=== PATIENT | male | born 1985 | race African-American/Black ===

== ENCOUNTER 2017-03-20 01:50 | Inpatient (IN) | payer BC, MEDICAID ==
[2017-03-20] VITALS (9 sets, daily range): BP systolic 110–135; BP diastolic 65–88; PULSE 85–130; RESP 18–22; TEMP 97–99.9; O2SAT 89–100
[~2017-03-20] VITALS: Ht 175.3 cm; Wt 61.6 kg
[2017-03-20] MEDS: SODIUM CHLOR 0.9% 1000 ML INJ 1,000 ML IV SCH ×2 (01:00→04:23)
[~2017-03-20 01:50] MED LIST: DOCU1CAP39 PO; HYDR500C PO; NALOXONE HCL 0.4 MG/ML AMP IV PUSH PRN; PERC7.5T13 PO; PROC10TA PO; SODIUM CHLORIDE 0.9% FLUSH 10 ML FLUSH IV FLUSH PRN
[2017-03-20] MEDS: HYDROmorphone HCL PF 0.5 MG/0.5 ML SYRINGE IV PRN ×2 (02:26→06:00)
[2017-03-20] MEDS ORDERED: HYDROmorphone HCL PF 0.5 MG/0.5 ML SYRINGE IV ONE ×2 (03:00→04:15)
[2017-03-20 06:46] LABS: BLOOD, URINE MOD (NEG); GLUCOSE,URINE NEG (NEG); KETONE, URINE NEG (NEG); NITRITE,URINE NEG (NEG)
[2017-03-20 06:56] LABS: COMMENT (UR) CULT NOT INDICATED; CULTURE IF INDICATED CULT NOT INDICATED; METHOD OF COLLECTION CLEAN CATCH; SQUAMOUS EPITHELIAL CELL URINE 0-5 /hpf (0-5); URINE COLOR YELLOW (YELLW/STRAW)
[2017-03-20 07:01] LABS: BICARBONATE 22.8 MEQ/L (21.0-32.0); POTASSIUM 3.4 MEQ/L (3.5-5.1)
[2017-03-20 07:02] LABS: WHITE BLOOD COUNT 26.5 TH/MM3 (4.0-11.0)
[2017-03-20 07:03] LABS: HEMO FLAGS AUTO DIFF; MEAN CELL VOLUME 99.1 FL (80.0-100.0); MEAN CORPUSCULAR HEMOGLOBIN 34.5 PG (27.0-34.0); MEAN CORPUSCULAR HGB CONC 34.8 % (32.0-36.0); PLATELET COUNT 148 TH/MM3 (150-450); RED BLOOD COUNT 1.96 MIL/MM3 (4.50-5.90); RED CELL DISTRIBUTION WIDTH 22.8 % (11.6-17.2)
[2017-03-20 07:04] LABS: HEMATOCRIT 19.4 % (39.0-51.0)
[2017-03-20] MEDS ORDERED: SODIUM CHLOR 0.9% 250 ML INJ 250 ML IV ONE (07:30)
[2017-03-20] MEDS ORDERED: ACETAMINOPHEN 325 MG TAB PO PRN ×2 (07:30→09:15)
[2017-03-20] MEDS ORDERED: FUROSEMIDE 20 MG/2 ML VIAL IV PUSH ONE (07:30)
[2017-03-20] MEDS ORDERED: HYDROmorphone HCL PF 1 MG/ML VIAL IV PUSH ONE (08:45)
[2017-03-20 09:00] LABS: BANDS 3 % (0-6); CORRECTED NUCLEATED RBC 34 /100 WBC (0-0); CORRECTED WBC 19.8 TH/MM3 (4.0-11.0); METAMYELOCYTES 1 % (0-1); NEUTROPHIL # MANUAL DIFF 16.6 TH/MM3 (1.8-7.7); POLYS (SEG NEUTROPHILS) 80 % (16-70); WBC DIFF SAMPLE 100
[2017-03-20] MEDS: DOCUSATE SODIUM 100 MG CAP PO SCH ×2 (09:00→21:00)
[2017-03-20] MEDS ORDERED: oxyCODONE/ACETAMINOPHEN 5 MG/325 MG TAB PO PRN (09:00)
[2017-03-20] MEDS ORDERED: ONDANSETRON HCL 4 MG/2 ML VIAL IV PUSH PRN (09:00)
[2017-03-20] MEDS ORDERED: HYDROmorphone HCL PF 1 MG/ML VIAL IV PRN (09:00)
[2017-03-20] MEDS: SODIUM CHLORIDE 0.9% FLUSH 10 ML FLUSH IV FLUSH SCH ×2 (09:00→21:00)
[2017-03-20 09:01] LABS: HOWELL-JOLLY BODIES PRESENT (NONE SEEN); KERATOCYTES OCC (NORMAL); OVALOCYTES 2+ (NORMAL); STOMATOCYTES 1+ (NORMAL); TARGET CELLS 1+ (NORMAL)
--- NOTE | 2017-03-20 09:01 | HHI.HP ---
HPI Service [facility] ([place], [place])ists Primary Care Physician No Primary Care Physician Admission Diagnosis Diagnoses: (1) Sickle cell anemia Diagnosis: Principal Chief Complaint: Pain Travel History International Travel<30 Days: No Contact w/Intl Traveler <30 Da: No History of Present Illness The patient is a 31-year-old male with a past medical history of sickle cell disease who is presenting to the hospital with severe pain. He says his last sickle cell crisis was on and he went to the emergency department in [place] at that time. He said his lower abdomen, groin and hips are hurting him. He also endorses flank pain. He says the pain is severe in nature and does not go away. He said that he has been nauseous but has not been vomiting. He denies any diarrhea. He says he has not been eating well. He has been trying to drink fluids. He did endorse a fever today but was unsure of how high it went. He said he believes he will need up to 4 mg of IV Dilaudid at this point. He denies any chest pain or shortness of breath. Review of Systems ROS Limitations: Clinical Condition Except as stated in HPI: all other systems reviewed are Neg Past Family Social History Past Medical History Sickle cell disease Past Surgical History Knee surgery Cholecystectomy Port placement Allergies: Coded Allergies: No Known Allergies (Unverified , 03/19/17) Active Ordered Medications Current Medications Medications (Trade) Dose Ordered Sig/Thomas Route Start Time Stop Time Status Last Admin (NS Flush) 2 ml UNSCH PRN IV FLUSH 03/20/17 01:00 (NS Flush) 2 ml BID IV FLUSH 03/20/17 09:00 (Narcan Inj) 0.4 mg UNSCH PRN IV PUSH 03/20/17 01:00 Sodium Chloride 1,000 ml @ 250 mls/hr Q4H IV 03/20/17 01:00 03/20/17 04:23 (Flu (Quadrivalent) Vaccine Inj) 0.5 ml ONCE ONCE IM 03/21/17 10:00 03/21/17 10:01 Sodium Chloride 250 ml @ 15 mls/hr ONCE ONCE IV 03/20/17 07:30 03/21/17 00:09 (Benadryl) 25 mg Q4H PRN PO 03/20/17 07:30 (Colace) 100 mg Q12HR PO 03/20/17 09:00 UNV (Hydrea) 500 mg DAILY PO 03/20/17 09:00 UNV (Dilaudid Pf Inj) 2 mg Q4H PRN IV 03/20/17 09:00 UNV (Percocet 5-325 Mg) 1 tab Q4H PRN PO 03/20/17 09:00 UNV (Percocet 10-325 Mg) 1 tab Q4H PRN PO 03/20/17 09:00 UNV (Zofran Inj) 4 mg Q8HR PRN IV PUSH 03/20/17 09:00 UNV Family History Diabetes Hypertension Gout Sickle cell trait Social History The patient does not smoke. He has social alcohol use. He denies illicit drug use. Physical Exam Vital Signs Vital Signs Date Time Temp Pulse Resp B/P (MAP) Pulse Ox O2 Delivery O2 Flow Rate FiO2 03/20/17 08:00 98.1 91 19 113/73 (86) 100 03/20/17 02:39 97.0 130 22 121/81 (94) 89 Physical Exam GENERAL: This is a well-nourished, well-developed patient, writhing around in pain. SKIN: No rashes, ecchymoses or lesions. Cool and dry. HEAD: Atraumatic. Normocephalic. No temporal or scalp tenderness. EYES: Pupils equal round and reactive. Extraocular motions intact. No scleral icterus. No injection or drainage. ENT: Nose without bleeding, purulent drainage or septal hematoma. Throat without erythema, tonsillar hypertrophy or exudate. Uvula midline. Airway patent. NECK: Trachea midline. No JVD or lymphadenopathy. Supple, nontender, no meningeal signs. CARDIOVASCULAR: Sinus tachycardia without murmurs, gallops, or rubs. RESPIRATORY: Clear to auscultation. Breath sounds equal bilaterally. No wheezes , rales, or rhonchi. GASTROINTESTINAL: Abdomen soft, generalized tenderness to palpation, nondistended. No hepato-splenomegaly, or palpable masses. MUSCULOSKELETAL: Extremities without clubbing, cyanosis, or edema. No joint tenderness, effusion, or edema noted. NEUROLOGICAL: Awake and alert. Cranial nerves II through XII intact. Motor and sensory grossly within normal limits. Five out of 5 muscle strength in all muscle groups. Normal speech. Laboratory Laboratory Tests Test 03/20/17 05:10 03/20/17 06:00 White Blood Count 26.5 Red Blood Count 1.96 Hemoglobin 6.8 Hematocrit 19.4 Mean Corpuscular Volume 99.1 Mean Corpuscular Hemoglobin 34.5 Mean Corpuscular Hemoglobin Concent 34.8 Red Cell Distribution Width 22.8 Platelet Count 148 Mean Platelet Volume 9.1 CBC Comment AUTO DIFF Blood Urea Nitrogen 7 Creatinine 0.59 Random Glucose 77 Calcium Level 8.1 Sodium Level 137 Potassium Level 3.4 Chloride Level 106 Carbon Dioxide Level 22.8 Anion Gap 8 Estimat Glomerular Filtration Rate 192 Total Creatine Kinase 71 Urine Collection Type CLEAN CATCH Urine Color YELLOW Urine Turbidity CLEAR Urine pH 6.0 Urine Specific [place] 1.026 Urine Protein TRACE Urine Glucose (UA) NEG Urine Ketones NEG Urine Occult Blood MOD Urine Nitrite NEG Urine Bilirubin NEG Urine Leukocyte Esterase NEG Urine Squamous Epithelial Cells 0-5 Urine Amorphous Sediment FEW Microscopic Urinalysis Comment CULT NOT INDICATED Urine Collection Time 0600 Result Diagram: 03/20/1750903/20/17509 Caprini VTE Risk Assessment Caprini VTE Risk Assessment: Mod/High Risk (score >= 2) Caprini Risk Assessment Model Point Value = 1 Point Value = 2 Point Value = 3 Point Value = 5 Age 41-60 Minor surgery BMI > 25 kg/m2 Swollen legs Varicose veins or History of unexplained or recurrent spontaneous Oral contraceptives or hormone replacement Sepsis (< 1 month) Serious lung disease, including pneumonia (< 1 month) Abnormal pulmonary function Acute myocardial infarction Congestive heart failure (< 1 month) History of inflammatory bowel disease Medical patient at bed rest Age 61-74 Arthroscopic surgery Major open surgery (> 45 min) Laparoscopic surgery (> 45 min) Malignancy Confined to bed (> 72 hours) Immobilizing plaster cast Central venous access Age >= 75 History of VTE Family history of VTE Factor V Leiden Prothrombin [id number] Lupus anticoagulant Anticardiolipin antibodies Elevated serum homocysteine Heparin-induced thrombocytopenia Other congenital or acquired thrombophilia Stroke (< 1 month) Elective arthroplasty Hip, pelvis, or leg fracture Acute spinal cord injury (< 1 month) Prophylaxis Regimen Total Risk Factor Score Risk Level Prophylaxis Regimen 0-1 Low Early ambulation 2 Moderate Order ONE of the following: *Sequential Compression Device (SCD) *Heparin 5000 units SQ BID 3-4 Higher Order ONE of the following medications: *Heparin 5000 units SQ TID *Enoxaparin/Lovenox 40 mg SQ daily (WT < 150 kg, CrCl > 30 mL/min) *Enoxaparin/Lovenox 30 mg SQ daily (WT < 150 kg, CrCl > 10-29 mL/min) *Enoxaparin/Lovenox 30 mg SQ BID (WT < 150 kg, CrCl > 30 mL/min) AND/OR *Sequential Compression Device (SCD) 5 or more Highest Order ONE of the following medications: *Heparin 5000 units SQ TID (Preferred with Epidurals) *Enoxaparin/Lovenox 40 mg SQ daily (WT < 150 kg, CrCl > 30 mL/min) *Enoxaparin/Lovenox 30 mg SQ daily (WT < 150 kg, CrCl > 10-29 mL/min) *Enoxaparin/Lovenox 30 mg SQ BID (WT < 150 kg, CrCl > 30 mL/min) AND *Sequential Compression Device (SCD) Assessment and Plan Assessment and Plan Sickle cell crisis The pt describes severe lower abdominal pain, groin pain, hip and flank pain. Afebrile at this time. Hgb 6.8 03/20. - consulted hematology. - Pain management accordingly and avoid oversedation. Currently on IV Dilaudid. - antiemetics as needed. - blood transfusion ordered 03/20. - IVFs. Leukocytosis Likely s/y acute crisis. CXR and UA unremarkable. Has significant abdominal pain. - CT of the abdomen pending. - start Levaquin IV for now. Hypokalemia S/t decreased PO intake. - IVFs with KCl ordered. Monitor and replete as needed. DVT prophylaxis: Lovenox Discussed Condition With Pt, nurse Physician Certification 2 Midnight Certification Type: Admission for Inpatient Services Order for Inpatient Services The services are ordered in accordance with Medicare regulations or non- Medicare payer requirements, as applicable. In the case of services not specified as inpatient-only, they are appropriately provided as inpatient services in accordance with the 2-midnight benchmark. Estimated LOS (days): 2 days is the estimated time the patient will need to remain in the hospital, assuming treatment plan goals are met and no additional complications. Post-Hospital Plan: Miquel Bonilla DO Mar 20, 2017 09:01
[2017-03-20 09:02] LABS: PLATELET ESTIMATE SMEAR NORMAL (NORMAL); PLATELET MORPHOLOGY NORMAL (NORMAL); SCAN/DIFF FINAL DIFF MANUAL
[2017-03-20] MEDS ORDERED: HYDROmorphone HCL PF 2 MG/ML VIAL IV PRN (09:15)
[2017-03-20] MEDS: HYDROmorphone HCL PF 2 MG/ML VIAL IV SCH ×5 (09:54→21:44)
[2017-03-20] MEDS: ENOXAPARIN SODIUM 40 MG/0.4 ML SYRINGE SQ SCH (09:55)
[2017-03-20 10:13] LABS: INDIRECT BILIRUBIN 4.4 MG/DL (0.0-0.8); TOTAL BILIRUBIN ADULT 4.8 MG/DL (0.2-1.0)
[2017-03-20] MEDS ORDERED: DIATRIZOATE MEGLUM/DIATRIZOATE SOD 9 ML CUP PO ONE (11:00)
[2017-03-20] MEDS: LEVOFLOXACIN 750 MG PREMIX INJ 150 ML IV SCH (11:30)
[2017-03-20] MEDS: HYDROXYUREA 500 MG CAP PO SCH (12:08)
[2017-03-20] MEDS: diphenhydrAMINE HCL 25 MG CAP PO PRN (12:08)
[2017-03-20] MEDS: NS + KCL 40 MEQ INJ 1,000 ML IV SCH ×3 (15:45→23:50)
[2017-03-20] MEDS: oxyCODONE/ACETAMINOPHEN 10 MG/325 MG TAB PO PRN (16:10)
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
[2017-03-20 18:39] LABS: HEMATOCRIT 24.7 % (39.0-51.0)
[2017-03-20 19:01] LABS: REVIEW FLAG FINAL
[2017-03-21] VITALS (9 sets, daily range): BP systolic 117–132; BP diastolic 57–72; PULSE 100–129; RESP 18; TEMP 97.9–101; O2SAT 92–99
[2017-03-21] MEDS: HYDROmorphone HCL PF 2 MG/ML VIAL IV SCH ×8 (00:34→22:59)
[2017-03-21 06:36] LABS: HEMATOCRIT 23.5 % (39.0-51.0); MEAN CELL VOLUME 93.8 FL (80.0-100.0); MEAN CORPUSCULAR HEMOGLOBIN 31.6 PG (27.0-34.0); MEAN CORPUSCULAR HGB CONC 33.7 % (32.0-36.0); PLATELET COUNT 145 TH/MM3 (150-450); RED BLOOD COUNT 2.51 MIL/MM3 (4.50-5.90); RED CELL DISTRIBUTION WIDTH 21.1 % (11.6-17.2); WHITE BLOOD COUNT 29.6 TH/MM3 (4.0-11.0)
[2017-03-21 06:48] LABS: CHLORIDE 102 MEQ/L (98-107); POTASSIUM 4.5 MEQ/L (3.5-5.1); SODIUM (NA) 135 MEQ/L (136-145)
[2017-03-21 06:54] LABS: ANION GAP 9 MEQ/L (5-15); BICARBONATE 24.1 MEQ/L (21.0-32.0); BLOOD UREA NITROGEN 7 MG/DL (7-18)
[2017-03-21 06:57] LABS: ALT (GPT) 16 U/L (12-78); AST (GOT) 93 U/L (15-37); GLOMERULAR FILTRATION RATE 196 ML/MIN (>89)
[2017-03-21 07:00] LABS: ALKALINE PHOSPHATASE 167 U/L (45-117)
[2017-03-21 07:05] LABS: HEMO FLAGS AUTO DIFF
[2017-03-21] MEDS: NS + KCL 40 MEQ INJ 1,000 ML IV SCH (08:03)
[2017-03-21] MEDS: HYDROXYUREA 500 MG CAP PO SCH (08:09)
[2017-03-21] MEDS: SODIUM CHLORIDE 0.9% FLUSH 10 ML FLUSH IV FLUSH SCH ×2 (08:14→21:00)
[2017-03-21] MEDS: DOCUSATE SODIUM 100 MG CAP PO SCH ×2 (08:14→21:00)
[2017-03-21 08:17] LABS: BANDS 3 % (0-6); CORRECTED NUCLEATED RBC 65 /100 WBC (0-0); CORRECTED WBC 17.9 TH/MM3 (4.0-11.0); METAMYELOCYTES 4 % (0-1); MYELOCYTES 2 % (0-0); POLYS (SEG NEUTROPHILS) 74 % (16-70); PROMYELOCYTES 1 % (0-0); TARGET CELLS 2+ (NORMAL); WBC DIFF SAMPLE 100
[2017-03-21 08:18] LABS: OVALOCYTES 2+ (NORMAL)
[2017-03-21 08:19] LABS: PLATELET ESTIMATE SMEAR LOW (NORMAL); PLATELET MORPHOLOGY NORMAL (NORMAL); SCAN/DIFF FINAL DIFF MANUAL; SICKLE CELLS 2+ (NORMAL)
[2017-03-21] MEDS ORDERED: INFLUENZA VIRUS VACCINE (QUADRIVALENT) 0.5 ML SYR IM ONE (10:00)
[2017-03-21] MEDS: LEVOFLOXACIN 750 MG PREMIX INJ 150 ML IV SCH (10:03)
[2017-03-21] MEDS: ENOXAPARIN SODIUM 40 MG/0.4 ML SYRINGE SQ SCH (10:03)
--- NOTE | 2017-03-21 11:18 | HHI.PR ---
Subjective Remarks The patient endorses significant pain although said it was better than yesterday. He said the pain is located in his lower stomach as well as in his joints. He said he would pursue the CT of the abdomen today. No other acute complaints. Objective Vitals Vital Signs Date Time Temp Pulse Resp B/P (MAP) Pulse Ox O2 Delivery O2 Flow Rate FiO2 03/21/17 08:00 99.7 123 18 119/67 (84) 95 03/21/17 07:52 92 Nasal Cannula 2.00 03/21/17 04:00 100.9 117 18 117/57 (77) 95 03/21/17 00:00 100.6 119 18 117/66 (83) 93 03/20/17 20:34 97 Nasal Cannula 3.00 03/20/17 20:00 99.9 116 20 110/65 (80) 94 03/20/17 20:00 119 03/20/17 16:00 98.2 88 18 115/82 (93) 100 03/20/17 14:50 98.9 112 18 135/88 94 03/20/17 13:12 98.9 110 18 120/75 96 03/20/17 12:48 99.0 113 19 113/73 95 03/20/17 12:00 98.2 85 18 115/74 (88) 100 I/O 03/20/17 03/20/17 03/20/17 03/21/17 03/21/17 03/21/17 07:00 15:00 23:00 07:00 15:00 23:00 Intake Total 1470 ml 250 ml Output Total 1000 ml 1000 ml 1300 ml Balance 1470 ml -1000 ml -750 ml -1300 ml Intake Oral 0 ml IV Total 1150 ml 250 ml Packed Cells 300 ml Blood Product IV Normal Saline Flush 20 ml Output Urine Total 1000 ml 1000 ml 1300 ml # Voids 5 Result Diagram: 03/21/1752903/21/17529 Objective Remarks GENERAL: This is a well-nourished, well-developed patient, uncomfortable. SKIN: No rashes, ecchymoses or lesions. Cool and dry. HEAD: Atraumatic. Normocephalic. No temporal or scalp tenderness. EYES: Pupils equal round and reactive. Extraocular motions intact. No scleral icterus. No injection or drainage. ENT: Nose without bleeding, purulent drainage or septal hematoma. Throat without erythema, tonsillar hypertrophy or exudate. Uvula midline. Airway patent. NECK: Trachea midline. No JVD or lymphadenopathy. Supple, nontender, no meningeal signs. CARDIOVASCULAR: Tachycardia without murmurs, gallops, or rubs. RESPIRATORY: Clear to auscultation. Breath sounds equal bilaterally. No wheezes , rales, or rhonchi. GASTROINTESTINAL: Abdomen soft, generalized tenderness to palpation, nondistended. No hepato-splenomegaly, or palpable masses. MUSCULOSKELETAL: Extremities without clubbing, cyanosis, or edema. No joint tenderness, effusion, or edema noted. NEUROLOGICAL: Awake and alert. Cranial nerves II through XII intact. Motor and sensory grossly within normal limits. Five out of 5 muscle strength in all muscle groups. Normal speech. PSYCH: Flattened affect. Medications and IVs Current Medications Medications (Trade) Dose Ordered Sig/Thomas Route Start Time Stop Time Status Last Admin (NS Flush) 2 ml UNSCH PRN IV FLUSH 03/20/17 01:00 (NS Flush) 2 ml BID IV FLUSH 03/20/17 09:00 03/21/17 08:14 (Narcan Inj) 0.4 mg UNSCH PRN IV PUSH 03/20/17 01:00 (Benadryl) 25 mg Q4H PRN PO 03/20/17 07:30 03/20/17 12:08 (Colace) 100 mg Q12HR PO 03/20/17 09:00 (Hydrea) 500 mg DAILY PO 03/20/17 09:00 03/21/17 08:09 (Percocet 5-325 Mg) 1 tab Q4H PRN PO 03/20/17 09:00 (Percocet 10-325 Mg) 1 tab Q4H PRN PO 03/20/17 09:00 03/20/17 16:10 (Zofran Inj) 4 mg Q8HR PRN IV PUSH 03/20/17 09:00 (Tylenol) 650 mg Q4H PRN PO 03/20/17 09:15 (Benadryl) 25 mg Q4H PRN PO 03/20/17 09:15 (Lovenox Inj) 40 mg Q24H SQ 03/20/17 10:00 03/21/17 10:03 Potassium Chloride/Sodium Chloride 1,000 ml @ 125 mls/hr Q8H IV 03/20/17 09:00 03/21/17 08:03 Levofloxacin/ Dextrose 150 ml @ 100 mls/hr Q24H IV 03/20/17 11:00 03/21/17 10:03 (Dilaudid Pf Inj) 2 mg Q3H IV 03/21/17 04:00 03/21/17 10:03 A/P Problem List: (1) Sickle cell anemia ICD Code: D57.1 - Sickle-cell disease without crisis Status: Chronic Assessment and Plan Sickle cell crisis The pt describes severe lower abdominal pain, groin pain, hip and flank pain. Afebrile at this time. Hgb 6.8 03/20. Hematology consult appreciated. - consulted hematology. - Pain management per heme and avoid oversedation. Currently on IV Dilaudid. - antiemetics as needed. - blood transfusion ordered 03/20. Stable. - IVFs. Leukocytosis Likely s/y acute crisis. CXR and UA unremarkable. Has significant abdominal pain. - CT of the abdomen pending. - continue Levaquin IV for now. Hypokalemia S/t decreased PO intake. - IVFs with KCl ordered. Monitor and replete as needed. DVT prophylaxis: Lovenox Discharge Planning Awaiting clinical improvement Miquel Steward DO Mar 21, 2017 11:18
[2017-03-21] MEDS ORDERED: DIATRIZOATE MEGLUM/DIATRIZOATE SOD 9 ML CUP PO ONE (12:00)
[2017-03-21] MEDS: SODIUM CHLOR 0.9% 1000 ML INJ 1,000 ML IV SCH ×2 (13:11→21:48)
[2017-03-21] MEDS: ACETAMINOPHEN 325 MG TAB PO PRN (14:10)
--- NOTE | 2017-03-21 16:57 | PD.ONC.PN ---
Subjective Subjective Remarks sleeping in no apparent pain bit states that his bones hurt very drowsy received pain meds before my arrival low grade fever/no cough/no dyspnea Objective Data Date Time Temp Pulse Resp B/P (MAP) Pulse Ox O2 Delivery O2 Flow Rate FiO2 03/21/17 12:00 101.0 129 18 132/72 (92) 96 03/21/17 08:00 99.7 123 18 119/67 (84) 95 03/21/17 08:00 124 03/21/17 07:52 92 Nasal Cannula 2.00 03/21/17 04:00 100.9 117 18 117/57 (77) 95 03/21/17 00:00 100.6 119 18 117/66 (83) 93 03/20/17 20:34 97 Nasal Cannula 3.00 03/20/17 20:00 99.9 116 20 110/65 (80) 94 03/20/17 20:00 119 03/21/17 03/21/17 03/21/17 07:00 15:00 23:00 Intake Total 250 ml 775 ml Output Total 1000 ml 1300 ml Balance -750 ml -525 ml Result Diagram: 03/21/17 0530 03/21/17 0530 Laboratory Results Laboratory Tests Test 03/20/17 18:25 03/21/17 05:30 Hemoglobin 8.5 GM/DL 7.9 GM/DL Hematocrit 24.7 % 23.5 % White Blood Count 29.6 TH/MM3 Corrected White Blood Count 17.9 TH/MM3 Red Blood Count 2.51 MIL/MM3 Mean Corpuscular Volume 93.8 FL Mean Corpuscular Hemoglobin 31.6 PG Mean Corpuscular Hemoglobin Concent 33.7 % Red Cell Distribution Width 21.1 % Platelet Count 145 TH/MM3 Mean Platelet Volume 8.9 FL CBC Comment AUTO DIFF Differential Total Cells Counted 100 Neutrophils % (Manual) 74 % Band Neutrophils % 3 % Lymphocytes % 9 % Monocytes % 7 % Neutrophils # (Manual) 15.0 TH/MM3 Metamyelocytes 4 % Myelocytes 2 % Promyelocytes 1 % Nucleated Red Blood Cells 65 /100 WBC Differential Comment FINAL DIFF MANUAL Platelet Estimate LOW Platelet Morphology Comment NORMAL Sickle Cells 2+ Target Cells 2+ Ovalocytes 2+ Blood Urea Nitrogen 7 MG/DL Creatinine 0.58 MG/DL Random Glucose 75 MG/DL Total Protein 7.9 GM/DL Albumin 3.4 GM/DL Calcium Level 8.1 MG/DL Alkaline Phosphatase 167 U/L Aspartate Amino Transf (AST/SGOT) 93 U/L Alanine Aminotransferase (ALT/SGPT) 16 U/L Total Bilirubin 6.0 MG/DL Sodium Level 135 MEQ/L Potassium Level 4.5 MEQ/L Chloride Level 102 MEQ/L Carbon Dioxide Level 24.1 MEQ/L Anion Gap 9 MEQ/L Estimat Glomerular Filtration Rate 196 ML/MIN Lipase 76 U/L Administered Medications Medications (Trade) Dose Ordered Sig/Thomas Route PRN Reason Start Time Stop Time Status Last Admin Dose Admin Sodium Chloride (NS Flush) 2 ml BID IV FLUSH 03/20/17 09:00 03/21/17 08:14 Diphenhydramine HCl (Benadryl) 25 mg Q4H PRN PO SEE LABEL COMMENTS 03/20/17 07:30 03/20/17 12:08 Hydroxyurea (Hydrea) 500 mg DAILY PO 03/20/17 09:00 03/21/17 08:09 Oxycodone/ Acetaminophen (Percocet 10-325 Mg) 1 tab Q4H PRN PO pain 6-10 03/20/17 09:00 03/20/17 16:10 Enoxaparin Sodium (Lovenox Inj) 40 mg Q24H SQ 03/20/17 10:00 03/21/17 10:03 Levofloxacin/ Dextrose 150 ml @ 100 mls/hr Q24H IV 03/20/17 11:00 03/21/17 10:03 Hydromorphone HCl (Dilaudid Pf Inj) 2 mg Q3H IV 03/21/17 04:00 03/21/17 13:01 Sodium Chloride 1,000 ml @ 125 mls/hr Q8H IV 03/21/17 11:30 03/21/17 13:11 Acetaminophen (Tylenol) 650 mg Q4H PRN PO fever, headache 03/21/17 14:00 03/21/17 14:10 Objective Remarks GENERAL: drowsy SKIN: Warm and dry. HEAD: Normocephalic. EYES: No scleral icterus. No injection or drainage. NECK: Supple, trachea midline. No JVD or lymphadenopathy. LYMPHATIC: No adenopathy. CARDIOVASCULAR: Regular rate and rhythm without murmurs. RESPIRATORY: Breath sounds equal bilaterally. No accessory muscle use. GASTROINTESTINAL: Abdomen soft, non-tender, nondistended. EXTREMITIES: No cyanosis, or edema. Assessment/Plan Problem List: (1) Anemia ICD Codes: D64.9 - Anemia, unspecified Status: Acute (2) Atypical pneumonia ICD Codes: J18.9 - Pneumonia, unspecified organism Status: Resolved (3) Sickle cell crisis ICD Codes: D57.00 - Hb-SS disease with crisis, unspecified Status: Resolved (4) Sickle cell anemia ICD Codes: D57.1 - Sickle-cell disease without crisis Status: Chronic Assessment 1. Sickle cell pain crisis 2. Anemia 3. Fever Plan - continue Levaquin - chest X-ray in am - blood cultures - incentive spirometry - decrease frequency of IV Dilaudid to q4h and transition to oral Dilaudid- patient appears to be over sedated - daily folic acid d/w rn o/n events reviewed Tate Morris MD Mar 21, 2017 16:57
--- NOTE | 2017-03-21 17:11 | RADRPT ---
EXAM DATE/TIME: 03/21/2017 16:19 [facility] COMPARISON: No previous studies available for comparison. INDICATIONS : Abdominal pain, sickle cell crisis. ORAL CONTRAST: Partial prescribed oral contrast ingested. RADIATION DOSE: 6.68 CTDIvol (mGy) MEDICAL HISTORY : Sickle cell disease. SURGICAL HISTORY : Cholecystectomy. ENCOUNTER: Initial ACUITY: 1 day PAIN SCALE: 5/10 LOCATION: abdomen TECHNIQUE: Volumetric scanning of the abdomen and pelvis was performed. Using automated exposure control and ad justment of the mA and/or kV according to patient size, radiation dose was kept as low as reasonably achievable to obtain optimal diagnostic quality images. DICOM format image data is available electro nically for review and comparison. FINDINGS: LOWER LUNGS: Basilar atelectasis the right costophrenic angle. There is a focal opacity adjacent to the pleura in the lower lateral left lung which measures 1 cm in thickness and has irregular peripheral margins moulton ggesting focal infiltrate. LIVER: Homogeneous density without lesion for noncontrast technique. There is no dilation of the biliary tr ee. Hemoclips in the portal from prior cholecystectomy.. SPLEEN: No splenic tissue identified. PANCREAS: Within normal limits. KIDNEYS: Normal in size and shape. There is no mass, stone, or hydronephrosis. ADRENAL GLANDS: Within normal limits. VASCULAR: There is no aortic aneurysm. BOWEL/MESENTERY: No dilated loops of small or large bowel. No evidence of free fluid. ABDOMINAL WALL: Within normal limits. RETROPERITONEUM: Scattered upper abdominal para-aortic lymph nodes measuring up to 13 mm. Bilateral retrocrural lymph nodes measure up to 1.4 cm. BLADDER: No wall thickening or mass. REPRODUCTIVE: Within normal limits. INGUINAL: There is no lymphadenopathy or hernia. MUSCULOSKELETAL: Diffuse sclerosis of the osseous structures. CONCLUSION: 1. Mild upper abdominal and retrocrural adenopathy. 2. Diffuse osteosclerosis. 3. Infiltrates in both lower lungs. Al Elliott MD on March 21, 2017 at 17:06 Board Certified Radiologist. This report was verified electronically.
[2017-03-21] MEDS: diphenhydrAMINE HCL 25 MG CAP PO PRN (19:42)
[2017-03-22] VITALS (10 sets, daily range): BP systolic 106–137; BP diastolic 63–86; PULSE 106–144; RESP 14–22; TEMP 96.6–102.6; O2SAT 91–100
[2017-03-22] MEDS: FOLIC ACID 1 MG TAB PO SCH ×2 (00:19→10:22)
[2017-03-22] MEDS: HYDROmorphone HCL PF 2 MG/ML VIAL IV SCH ×6 (02:23→22:15)
[2017-03-22] MEDS: ACETAMINOPHEN 325 MG TAB PO PRN ×2 (02:25→13:42)
[2017-03-22] MEDS: SODIUM CHLOR 0.9% 1000 ML INJ 1,000 ML IV SCH ×3 (04:53→22:32)
[2017-03-22 05:19] LABS: MEAN CELL VOLUME 93.6 FL (80.0-100.0); MEAN CORPUSCULAR HEMOGLOBIN 31.1 PG (27.0-34.0); MEAN CORPUSCULAR HGB CONC 33.2 % (32.0-36.0); PLATELET COUNT 168 TH/MM3 (150-450); RED BLOOD COUNT 2.46 MIL/MM3 (4.50-5.90); RED CELL DISTRIBUTION WIDTH 20.5 % (11.6-17.2); WHITE BLOOD COUNT 31.7 TH/MM3 (4.0-11.0)
[2017-03-22 05:29] LABS: REVIEW FLAG FINAL
[2017-03-22 05:34] LABS: BICARBONATE 25.6 MEQ/L (21.0-32.0)
[2017-03-22 05:39] LABS: INDIRECT BILIRUBIN 5.8 MG/DL (0.0-0.8)
[2017-03-22] MEDS: diphenhydrAMINE HCL 25 MG CAP PO PRN ×2 (06:03→22:16)
--- NOTE | 2017-03-22 09:57 | RADRPT ---
EXAM DATE/TIME: 03/22/2017 09:27 [facility] COMPARISON: CHEST PA & LAT, April 30, 2016, 8:03. INDICATIONS : Fever, sickle cell crisis. MEDICAL HISTORY : Sickle cell. SURGICAL HISTORY : Cholecystectomy. ENCOUNTER: Subsequent ACUITY: 1 week PAIN SCORE: 10/10 LOCATION: chest FINDINGS: PA and lateral views of the chest demonstrate the lungs to be symmetrically aerated without evidence of mass, or effusion. Mild diffuse interstitial prominence is unchanged from prior examination in 2015. No evidence of pneumothorax. The heart is mildly enlarged, similar to prior.. Diffuse osteosclerosis characteristic of sickle cell disease. Left [id number]-Wead catheter tip projects over the mid superior vena cava. CONCLUSION: No acute findings. Chronic mild diffuse interstitial prominence and diffuse osteosclerosis, unchange d from prior. Al Elliott MD on March 22, 2017 at 9:54 Board Certified Radiologist. This report was verified electronically.
[2017-03-22] MEDS: DOCUSATE SODIUM 100 MG CAP PO SCH ×2 (10:21→21:00)
[2017-03-22] MEDS: ENOXAPARIN SODIUM 40 MG/0.4 ML SYRINGE SQ SCH (10:21)
[2017-03-22] MEDS: SODIUM CHLORIDE 0.9% FLUSH 10 ML FLUSH IV FLUSH SCH ×2 (10:22→22:15)
[2017-03-22] MEDS: HYDROXYUREA 500 MG CAP PO SCH (10:29)
[2017-03-22 11:25] LABS: RETIC % 12.6 % (0.4-3.0)
[2017-03-22 11:29] LABS: REVIEW FLAG FINAL
[2017-03-22] MEDS: LEVOFLOXACIN 750 MG PREMIX INJ 150 ML IV SCH (12:17)
[2017-03-22] MEDS ORDERED: Vancomycin Consult Pharmacy 1 EA OTHER SCH (14:30)
[2017-03-22] MEDS ORDERED: VANCOMYCIN INJ 900 MG in SODIUM CHLOR 0.9% 250 ML INJ 250 ML IV SCH (14:30)
[2017-03-22] MEDS: CEFEPIME INJ 2,000 MG in SODIUM CHLORIDE 0.9% INJ 100 ML IV SCH ×2 (15:11→22:17)
--- NOTE | 2017-03-22 15:27 | HHI.PR ---
Subjective Remarks The patient complained of a sore throat. He also felt like his neck and tonsils were swollen. He complains that his pain medications have been spaced out too far. No other acute concerns. Discussed with nursing. Objective Vitals Vital Signs Date Time Temp Pulse Resp B/P (MAP) Pulse Ox O2 Delivery O2 Flow Rate FiO2 03/22/17 12:00 102.6 140 18 117/76 (90) 94 03/22/17 08:00 100.6 121 14 137/83 (101) 100 03/22/17 04:30 100.4 111 20 110/86 (94) 98 03/22/17 02:13 101.7 144 22 126/74 (91) 91 03/22/17 01:48 144 03/22/17 00:00 96.6 133 18 106/63 (77) 92 03/21/17 22:35 98 Nasal Cannula 2.00 03/21/17 21:00 114 03/21/17 20:00 97.9 107 18 125/69 (87) 99 03/21/17 16:00 100.0 100 18 122/70 (87) 96 I/O 03/21/17 03/21/17 03/21/17 03/22/17 03/22/17 03/22/17 07:00 15:00 23:00 07:00 15:00 23:00 Intake Total 250 ml 775 ml 480 ml 1400 ml 390 ml Output Total 1000 ml 1300 ml 600 ml 1750 ml 800 ml Balance -750 ml -525 ml -120 ml -350 ml -410 ml Intake Oral 0 ml 480 ml 240 ml IV Total 250 ml 775 ml 1400 ml 150 ml Output Urine Total 1000 ml 1300 ml 600 ml 1750 ml 800 ml Result Diagram: 03/22/17 0500 03/22/17 0500 Imaging Last Impressions Chest X-Ray 03/22/17 0800 Signed Impressions: Service Date/Time: February 09:27 - CONCLUSION: No acute findings. Chronic mild diffuse interstitial prominence and diffuse osteosclerosis, unchanged from prior. Al Elliott MD Abdomen/Pelvis CT 03/21/17 0000 Signed Impressions: Service Date/Time: Tuesday, March 21, 2017 16:19 - CONCLUSION: 1. Mild upper abdominal and retrocrural adenopathy. 2. Diffuse osteosclerosis. 3. Infiltrates in both lower lungs. Al Elliott MD Objective Remarks GENERAL: This is a well-nourished, well-developed patient, uncomfortable. SKIN: No rashes, ecchymoses or lesions. Cool and dry. HEAD: Atraumatic. Normocephalic. No temporal or scalp tenderness. EYES: Pupils equal round and reactive. Extraocular motions intact. No scleral icterus. No injection or drainage. ENT: Nose without bleeding, purulent drainage or septal hematoma. Thrush noted on tongue. NECK: Trachea midline. No JVD or lymphadenopathy. Supple, tender to palpation, no meningeal signs. CARDIOVASCULAR: Tachycardia without murmurs, gallops, or rubs. RESPIRATORY: Clear to auscultation. Breath sounds equal bilaterally. No wheezes , rales, or rhonchi. GASTROINTESTINAL: Abdomen soft, generalized tenderness to palpation, nondistended. No hepato-splenomegaly, or palpable masses. MUSCULOSKELETAL: Extremities without clubbing, cyanosis, or edema. No joint tenderness, effusion, or edema noted. NEUROLOGICAL: Awake and alert. Cranial nerves II through XII intact. Motor and sensory grossly within normal limits. Five out of 5 muscle strength in all muscle groups. Normal speech. PSYCH: Flattened affect. Medications and IVs Current Medications Medications (Trade) Dose Ordered Sig/Thomas Route Start Time Stop Time Status Last Admin (NS Flush) 2 ml UNSCH PRN IV FLUSH 03/20/17 01:00 (NS Flush) 2 ml BID IV FLUSH 03/20/17 09:00 03/22/17 10:22 (Narcan Inj) 0.4 mg UNSCH PRN IV PUSH 03/20/17 01:00 (Colace) 100 mg Q12HR PO 03/20/17 09:00 03/22/17 10:21 (Hydrea) 500 mg DAILY PO 03/20/17 09:00 03/22/17 10:29 (Percocet 5-325 Mg) 1 tab Q4H PRN PO 03/20/17 09:00 (Percocet 10-325 Mg) 1 tab Q4H PRN PO 03/20/17 09:00 03/20/17 16:10 (Zofran Inj) 4 mg Q8HR PRN IV PUSH 03/20/17 09:00 03/21/17 19:40 (Tylenol) 650 mg Q4H PRN PO 03/20/17 09:15 (Benadryl) 25 mg Q4H PRN PO 03/20/17 09:15 03/22/17 06:03 (Lovenox Inj) 40 mg Q24H SQ 03/20/17 10:00 03/22/17 10:21 Sodium Chloride 1,000 ml @ 125 mls/hr Q8H IV 03/21/17 11:30 03/22/17 13:43 (Tylenol) 650 mg Q4H PRN PO 03/21/17 14:00 03/22/17 13:42 (Folate) 1 mg DAILY PO 03/21/17 23:00 03/22/17 10:22 (Dilaudid Pf Inj) 2 mg Q4H IV 03/22/17 02:00 03/22/17 13:43 Cefepime HCl 2000 mg/Sodium Chloride 100 ml @ 200 mls/hr Q8H IV 03/22/17 15:00 03/22/17 15:11 Pharmacy Profile Note 0 ml @ 0 mls/hr UNSCH OTHER 03/22/17 14:30 Vancomycin HCl 1000 mg/Sodium Chloride 250 ml @ 250 mls/hr Q8H IV 03/22/17 16:00 Miscellaneous Information SPECIFIC LAB TO BE ... ONCE ONCE .XX 03/23/17 15:45 03/23/17 15:46 A/P Problem List: (1) Sickle cell anemia ICD Code: D57.1 - Sickle-cell disease without crisis Status: Chronic Assessment and Plan Sickle cell crisis The pt describes severe lower abdominal pain, groin pain, hip and flank pain. Afebrile at this time. Hgb 6.8 03/20. Hematology consult appreciated. - follow with hematology. - Pain management per heme and avoid oversedation. Currently on IV Dilaudid. - antiemetics as needed. - blood transfusion ordered 03/20. Stable. - IVFs. Leukocytosis/ Fever CXR and UA unremarkable. Has significant abdominal pain. CT abdomen with consolidation in the lower lungs. Has a sore throat. - antibiotics changed to cefepime and vancomycin IV to cover for HCAP. - rapid strep pending. - magic mouthwash for thrush. - ID consult if no improvement. Hypokalemia S/t decreased PO intake. - IVFs with KCl ordered. Monitor and replete as needed. DVT prophylaxis: Lovenox Discharge Planning Awaiting clinical improvement Miquel Steward DO Mar 22, 2017 15:27
--- NOTE | 2017-03-22 17:29 | PD.ONC.PN ---
Subjective Subjective Remarks Resting comfortably in bed. Woke patient up for interview. He reports that he is still having severe pain that is present in all of his joints and lower abdomen. He states that his current pain medication regimen is not working. Objective Data Date Time Temp Pulse Resp B/P (MAP) Pulse Ox O2 Delivery O2 Flow Rate FiO2 03/22/17 12:00 102.6 140 18 117/76 (90) 94 03/22/17 08:00 100.6 121 14 137/83 (101) 100 03/22/17 04:30 100.4 111 20 110/86 (94) 98 03/22/17 02:13 101.7 144 22 126/74 (91) 91 03/22/17 01:48 144 03/22/17 00:00 96.6 133 18 106/63 (77) 92 03/21/17 22:35 98 Nasal Cannula 2.00 03/21/17 21:00 114 03/21/17 20:00 97.9 107 18 125/69 (87) 99 03/22/17 03/22/17 03/22/17 07:00 15:00 23:00 Intake Total 1400 ml 390 ml Output Total 1750 ml 800 ml Balance -350 ml -410 ml Result Diagram: 03/22/17 0500 03/22/17 0500 Laboratory Results Laboratory Tests Test 03/22/17 05:00 White Blood Count 31.7 TH/MM3 Red Blood Count 2.46 MIL/MM3 Hemoglobin 7.6 GM/DL Hematocrit 23.0 % Mean Corpuscular Volume 93.6 FL Mean Corpuscular Hemoglobin 31.1 PG Mean Corpuscular Hemoglobin Concent 33.2 % Red Cell Distribution Width 20.5 % Platelet Count 168 TH/MM3 Mean Platelet Volume 8.9 FL Reticulocyte Count 12.6 % Absolute Reticulocyte Count 281.8 MIL/L Blood Urea Nitrogen 9 MG/DL Creatinine 0.61 MG/DL Random Glucose 90 MG/DL Total Protein 7.8 GM/DL Albumin 3.1 GM/DL Calcium Level 8.0 MG/DL Magnesium Level 2.0 MG/DL Alkaline Phosphatase 155 U/L Aspartate Amino Transf (AST/SGOT) 71 U/L Alanine Aminotransferase (ALT/SGPT) 15 U/L Lactate Dehydrogenase 1066 U/L Total Bilirubin 7.0 MG/DL Direct Bilirubin 1.2 MG/DL Sodium Level 136 MEQ/L Potassium Level 4.0 MEQ/L Chloride Level 103 MEQ/L Carbon Dioxide Level 25.6 MEQ/L Anion Gap 7 MEQ/L Estimat Glomerular Filtration Rate 185 ML/MIN Indirect Bilirubin 5.8 MG/DL Culture Results Microbiology Date/Time Source Procedure Growth Status 03/21/17 00:15 Blood Line Aerobic Blood Culture Pending Received 03/21/17 00:15 Blood Line Anaerobic Blood Culture Pending Received 03/21/17 00:12 Blood Line Aerobic Blood Culture Pending Received 03/21/17 00:12 Blood Line Anaerobic Blood Culture Pending Received Imaging Studies Last 24 hours Impressions Chest X-Ray 03/22/17 0800 Signed Impressions: Service Date/Time: February 09:27 - CONCLUSION: No acute findings. Chronic mild diffuse interstitial prominence and diffuse osteosclerosis, unchanged from prior. Al Elliott MD Administered Medications Medications (Trade) Dose Ordered Sig/Thomas Route PRN Reason Start Time Stop Time Status Last Admin Dose Admin Sodium Chloride (NS Flush) 2 ml BID IV FLUSH 03/20/17 09:00 03/22/17 10:22 Docusate Sodium (Colace) 100 mg Q12HR PO 03/20/17 09:00 03/22/17 10:21 Hydroxyurea (Hydrea) 500 mg DAILY PO 03/20/17 09:00 03/22/17 10:29 Oxycodone/ Acetaminophen (Percocet 10-325 Mg) 1 tab Q4H PRN PO pain 6-10 03/20/17 09:00 03/20/17 16:10 Ondansetron HCl (Zofran Inj) 4 mg Q8HR PRN IV PUSH nausea 03/20/17 09:00 03/21/17 19:40 Diphenhydramine HCl (Benadryl) 25 mg Q4H PRN PO SEE LABEL COMMENTS 03/20/17 09:15 03/22/17 06:03 Enoxaparin Sodium (Lovenox Inj) 40 mg Q24H SQ 03/20/17 10:00 03/22/17 10:21 Sodium Chloride 1,000 ml @ 125 mls/hr Q8H IV 03/21/17 11:30 03/22/17 13:43 Acetaminophen (Tylenol) 650 mg Q4H PRN PO fever, headache 03/21/17 14:00 03/22/17 13:42 Folic Acid (Folate) 1 mg DAILY PO 03/21/17 23:00 03/22/17 10:22 Hydromorphone HCl (Dilaudid Pf Inj) 2 mg Q4H IV 03/22/17 02:00 03/22/17 13:43 Cefepime HCl 2000 mg/Sodium Chloride 100 ml @ 200 mls/hr Q8H IV 03/22/17 15:00 03/22/17 15:11 Objective Remarks GENERAL: Well-nourished, well-developed patient. SKIN: Warm and dry. HEAD: Normocephalic. EYES: No scleral icterus. No injection or drainage. NECK: Supple, trachea midline. No JVD or lymphadenopathy. LYMPHATIC: No adenopathy. CARDIOVASCULAR: Regular rate and rhythm without murmurs. RESPIRATORY: Breath sounds equal bilaterally. No accessory muscle use. GASTROINTESTINAL: Abdomen soft, non-tender, nondistended. EXTREMITIES: No cyanosis, or edema. MUSCULOSKELETAL: Adequate muscle tone. NEUROLOGICAL: No obvious focal deficit. Assessment/Plan Problem List: (1) Anemia ICD Codes: D64.9 - Anemia, unspecified Status: Acute (2) Atypical pneumonia ICD Codes: J18.9 - Pneumonia, unspecified organism Status: Resolved (3) Sickle cell crisis ICD Codes: D57.00 - Hb-SS disease with crisis, unspecified Status: Resolved (4) Sickle cell anemia ICD Codes: D57.1 - Sickle-cell disease without crisis Status: Chronic Assessment 1. Sickle cell pain crisis: -Continue folic acid supplementation. Continue hydrea therapy. -Continue current pain medication regimen. Worry that if were to increase pain medication frequency that patient would suffer symptoms such as respiratory depression. -Maintain input and output net even. -No incentive spirometer at bedside. Patient reports that this makes his pain worse and declined to use it if ordered. 2. Anemia: due to SSA. Baseline hemoglobin approximately 7-7.5 He is s/p transfusion of 2 units of PRBC during this hospital stay. 3. Fever: on cefepime and vancomycin, changed today. Blood cultures pending. He does not have tachypnea, intercostal retraction, chest pain, cough, wheezing. He is on 2 liters of nasal cannula. Will check CT chest. CT abdomen unrevealing. 4. VTE ppx with lovenox. 5. Indirect hyperbilirubinemia: due to sickle cell disease Plan Jeanette De Leon MD Mar 22, 2017 17:29
[2017-03-22] MEDS: VANCOMYCIN 1,000 MG/NS 250 ML IV SCH ×4 (17:34→23:50)
[2017-03-22] MEDS: NYSTAT/DIPHENHY/LIDO MOUTHWASH (Adult) 120ML SWISH-SWAL SCH ×2 (17:35→22:29)
--- NOTE | 2017-03-22 23:02 | RADRPT ---
EXAM DATE/TIME: 03/22/2017 19:38 [facility] COMPARISON: CT ABDOMEN & PELVIS W/O CONTRAST, March 21, 2017, 16:19. INDICATIONS : Tachypnea. RADIATION DOSE: 6.47 CTDIvol (mGy) MEDICAL HISTORY : Sickle cell disease. SURGICAL HISTORY : Cholecystectomy. ENCOUNTER: Initial ACUITY: 1 day PAIN SCALE: 0/10 LOCATION: Bilateral chest TECHNIQUE: Volumetric scanning of the chest was performed. Using automated exposure control and adjustment of t he mA and/or kV according to patient size, radiation dose was kept as low as reasonably achievable to obtain optimal diagnostic quality images. DICOM format image data is available electronically for r eview and comparison. Follow-up recommendations for detected pulmonary nodules are based at a minimum on nodule size and pa tient risk factors according to Fleischner Society Guidelines. FINDINGS: There is trace atelectasis dependently of both lung bases. No lower consolidation. No pleural effusio n or pneumothorax. Heart size within normal limits. No mediastinal, hilar or lymphadenopathy demonstrated. Mild patchy sclerosis seen diffusely of the visualized osseous structures. No acute bony abnormality demonstrated. CONCLUSION: Minimal atelectasis of both lung bases. Otherwise negative noncontrast head CT. Hesham Chung MD on March 22, 2017 at 23:00 Board Certified Radiologist. This report was verified electronically.
[2017-03-23] VITALS (8 sets, daily range): BP systolic 109–126; BP diastolic 70–81; PULSE 104–122; RESP 14–20; TEMP 96.5–100.3; O2SAT 93–100
[2017-03-23] MEDS: HYDROmorphone HCL PF 2 MG/ML VIAL IV SCH ×6 (02:06→21:02)
[2017-03-23] MEDS: SODIUM CHLOR 0.9% 1000 ML INJ 1,000 ML IV SCH ×2 (05:05→13:52)
[2017-03-23] MEDS: CEFEPIME INJ 2,000 MG in SODIUM CHLORIDE 0.9% INJ 100 ML IV SCH ×3 (05:59→23:43)
[2017-03-23 06:07] LABS: MEAN CELL VOLUME 93.4 FL (80.0-100.0); MEAN CORPUSCULAR HEMOGLOBIN 31.5 PG (27.0-34.0); MEAN CORPUSCULAR HGB CONC 33.8 % (32.0-36.0); PLATELET COUNT 225 TH/MM3 (150-450); RED BLOOD COUNT 2.18 MIL/MM3 (4.50-5.90); RED CELL DISTRIBUTION WIDTH 19.4 % (11.6-17.2)
[2017-03-23 06:13] LABS: HEMO FLAGS AUTO DIFF
[2017-03-23 06:16] LABS: CHLORIDE 101 MEQ/L (98-107); HEMATOCRIT 20.4 % (39.0-51.0); POTASSIUM 3.8 MEQ/L (3.5-5.1); SODIUM (NA) 134 MEQ/L (136-145)
[2017-03-23 06:23] LABS: ANION GAP 5 MEQ/L (5-15); BICARBONATE 27.6 MEQ/L (21.0-32.0); BLOOD UREA NITROGEN 7 MG/DL (7-18)
[2017-03-23 06:26] LABS: AST (GOT) 42 U/L (15-37); GLOMERULAR FILTRATION RATE 227 ML/MIN (>89)
[2017-03-23 06:47] LABS: ALKALINE PHOSPHATASE 131 U/L (45-117); ALT (GPT) 13 U/L (12-78); TOTAL BILIRUBIN ADULT 4.4 MG/DL (0.2-1.0)
[2017-03-23 06:59] LABS: BANDS 2 % (0-6); BASOPHILS 1 % (0-2); CORRECTED NUCLEATED RBC 37 /100 WBC (0-0); CORRECTED WBC 21.9 TH/MM3 (4.0-11.0); NEUTROPHIL # MANUAL DIFF 17.1 TH/MM3 (1.8-7.7); POLYS (SEG NEUTROPHILS) 76 % (16-70); WBC DIFF SAMPLE 100
[2017-03-23 07:00] LABS: TARGET CELLS 1+ (NORMAL)
[2017-03-23 07:01] LABS: KERATOCYTES OCC (NORMAL); OVALOCYTES 1+ (NORMAL); ROULEAUX PRESENT (NORMAL); SICKLE CELLS 2+ (NORMAL); STOMATOCYTES 1+ (NORMAL)
[2017-03-23 07:03] LABS: PLATELET ESTIMATE SMEAR NORMAL (NORMAL); PLATELET MORPHOLOGY NORMAL (NORMAL); SCAN/DIFF FINAL DIFF MANUAL
[2017-03-23] MEDS: ENOXAPARIN SODIUM 40 MG/0.4 ML SYRINGE SQ SCH (08:53)
[2017-03-23] MEDS: FOLIC ACID 1 MG TAB PO SCH (08:54)
[2017-03-23] MEDS: DOCUSATE SODIUM 100 MG CAP PO SCH ×2 (08:54→21:00)
[2017-03-23] MEDS: SODIUM CHLORIDE 0.9% FLUSH 10 ML FLUSH IV FLUSH SCH ×2 (08:54→21:00)
[2017-03-23] MEDS: HYDROXYUREA 500 MG CAP PO SCH (08:58)
[2017-03-23] MEDS: NYSTAT/DIPHENHY/LIDO MOUTHWASH (Adult) 120ML SWISH-SWAL SCH ×4 (08:58→21:00)
[2017-03-23 09:31] LABS: RETIC % 12.9 % (0.4-3.0)
[2017-03-23 09:32] LABS: REVIEW FLAG FINAL
[2017-03-23 09:36] LABS: LDH SERUM 865 U/L (87-241)
--- NOTE | 2017-03-23 13:51 | HHI.PR ---
Subjective Remarks The patient complains about a hard time opening and closing his mouth secondary to jaw pain. He wants the frequency of his Dilaudid increased. He still complains of diffuse pain. Objective Vitals Vital Signs Date Time Temp Pulse Resp B/P (MAP) Pulse Ox O2 Delivery O2 Flow Rate FiO2 03/23/17 12:00 96.5 111 18 109/71 (84) 93 03/23/17 08:00 97.8 105 14 117/81 (93) 99 03/23/17 04:00 100.1 120 18 124/70 (88) 95 03/23/17 00:00 98.5 122 18 122/70 (87) 98 03/22/17 21:40 99 Nasal Cannula 3.00 03/22/17 21:00 106 03/22/17 20:00 98.4 120 18 112/68 (83) 98 03/22/17 16:00 99.0 114 16 119/76 (90) 100 I/O 03/22/17 03/22/17 03/22/17 03/23/17 03/23/17 03/23/17 07:00 15:00 23:00 07:00 15:00 23:00 Intake Total 1400 ml 390 ml 690 ml 2100 ml 358 ml Output Total 1750 ml 800 ml 1500 ml 400 ml Balance -350 ml -410 ml 690 ml 600 ml -42 ml Intake Oral 240 ml 240 ml 358 ml IV Total 1400 ml 150 ml 450 ml 2100 ml Output Urine Total 1750 ml 800 ml 1500 ml 400 ml # Voids 1 # Bowel Movements 0 Result Diagram: 03/23/17 0510 03/23/17 0510 Imaging Last Impressions Chest X-Ray 03/22/17 0800 Signed Impressions: Service Date/Time: February 09:27 - CONCLUSION: No acute findings. Chronic mild diffuse interstitial prominence and diffuse osteosclerosis, unchanged from prior. Al Elliott MD Chest CT 03/22/17 0000 Signed Impressions: Service Date/Time: February 19:38 - CONCLUSION: Minimal atelectasis of both lung bases. Otherwise negative noncontrast head CT. Hesham Chung MD Abdomen/Pelvis CT 03/21/17 0000 Signed Impressions: Service Date/Time: Wednesday, March 21, 2017 16:19 - CONCLUSION: 1. Mild upper abdominal and retrocrural adenopathy. 2. Diffuse osteosclerosis. 3. Infiltrates in both lower lungs. Al Elliott MD Objective Remarks GENERAL: This is a well-nourished, well-developed patient, uncomfortable. SKIN: No rashes, ecchymoses or lesions. Cool and dry. HEAD: Atraumatic. Normocephalic. No temporal or scalp tenderness. EYES: Pupils equal round and reactive. Extraocular motions intact. No scleral icterus. No injection or drainage. ENT: Nose without bleeding, purulent drainage or septal hematoma. Thrush noted on tongue. Tender to palpation at left TMJ joint. NECK: Trachea midline. No JVD or lymphadenopathy. Supple, tender to palpation, no meningeal signs. CARDIOVASCULAR: Tachycardia without murmurs, gallops, or rubs. RESPIRATORY: Clear to auscultation. Breath sounds equal bilaterally. No wheezes , rales, or rhonchi. GASTROINTESTINAL: Abdomen soft, generalized tenderness to palpation, nondistended. No hepato-splenomegaly, or palpable masses. MUSCULOSKELETAL: Extremities without clubbing, cyanosis, or edema. No joint tenderness, effusion, or edema noted. NEUROLOGICAL: Awake and alert. Cranial nerves II through XII intact. Motor and sensory grossly within normal limits. Five out of 5 muscle strength in all muscle groups. Normal speech. PSYCH: Flattened affect. Medications and IVs Current Medications Medications (Trade) Dose Ordered Sig/Thomas Route Start Time Stop Time Status Last Admin (NS Flush) 2 ml UNSCH PRN IV FLUSH 03/20/17 01:00 (NS Flush) 2 ml BID IV FLUSH 03/20/17 09:00 03/23/17 08:54 (Narcan Inj) 0.4 mg UNSCH PRN IV PUSH 03/20/17 01:00 (Colace) 100 mg Q12HR PO 03/20/17 09:00 03/23/17 08:54 (Hydrea) 500 mg DAILY PO 03/20/17 09:00 03/23/17 08:58 (Percocet 5-325 Mg) 1 tab Q4H PRN PO 03/20/17 09:00 (Percocet 10-325 Mg) 1 tab Q4H PRN PO 03/20/17 09:00 03/20/17 16:10 (Zofran Inj) 4 mg Q8HR PRN IV PUSH 03/20/17 09:00 03/21/17 19:40 (Tylenol) 650 mg Q4H PRN PO 03/20/17 09:15 03/23/17 05:07 (Lovenox Inj) 40 mg Q24H SQ 03/20/17 10:00 03/23/17 08:53 Sodium Chloride 1,000 ml @ 125 mls/hr Q8H IV 03/21/17 11:30 03/23/17 05:05 (Tylenol) 650 mg Q4H PRN PO 03/21/17 14:00 03/22/17 13:42 (Folate) 1 mg DAILY PO 03/21/17 23:00 03/23/17 08:54 (Dilaudid Pf Inj) 2 mg Q4H IV 03/22/17 02:00 03/23/17 10:01 Cefepime HCl 2000 mg/Sodium Chloride 100 ml @ 200 mls/hr Q8H IV 03/22/17 15:00 03/23/17 05:59 (Magic Mouthwash Adult Liq) 10 ml QID SWISH-SWAL 03/22/17 18:00 03/22/17 22:29 A/P Problem List: (1) Sickle cell anemia ICD Code: D57.1 - Sickle-cell disease without crisis Status: Chronic Assessment and Plan Sickle cell crisis The pt describes severe lower abdominal pain, groin pain, hip and flank pain. Afebrile at this time. Hgb 6.8 03/20. Hematology consult appreciated. - follow with hematology. - Pain management per heme and avoid oversedation. Currently on IV Dilaudid. - antiemetics as needed. - blood transfusion ordered 03/20. Will order another transfusion 03/23. - IVFs. Leukocytosis/ Fever CXR and UA unremarkable. Has significant abdominal pain. CT abdomen with consolidation in the lower lungs. Has a sore throat. CT chest negative for PNA. - antibiotics changed to cefepime. - rapid strep pending. - magic mouthwash for thrush. - ID consult requested. Hypokalemia S/t decreased PO intake. - IVFs with KCl ordered. Monitor and replete as needed. DVT prophylaxis: Lovenox Discharge Planning Awaiting clinical improvement Miquel Steward DO Mar 23, 2017 13:50
[2017-03-23] MEDS ORDERED: HYDROmorphone HCL PF 1 MG/ML VIAL IV PUSH ONE (14:00)
[2017-03-23] MEDS ORDERED: PHARMACY ORDERED LAB ONE (15:45)
--- NOTE | 2017-03-23 16:27 | MB ---
cc: GONZALEZ RODRIGUEZ MD DATE OF CONSULTATION: 03/23/2017. REASON FOR CONSULTATION: Fevers, jaw pain, sickle crisis. REQUESTING PHYSICIAN: Dr. Steward. HISTORY OF PRESENT ILLNESS: This is a 31-year-old black male who presented to the emergency department with diffuse pains. The patient was previously seen in the emergency department on March 19 with diffuse aches and pains similar to prior episode of sickle cell crisis. He was evaluated in the emergency department and he was discharged with hydroxyurea. He was supposed to continue to take his medicines for pain which he takes at home including Dilaudid and oxycodone. The pain subsided for a while and then it came back and he presented again to the emergency department on March 19. He describes pain in his shoulders, abdomen, hips, knees. He denies cough, shortness of breath, vomiting or diarrhea. He was afebrile and on admission but notes that he may have had fever prior. His white blood cell count on admission was 26.5 with 80% neutrophils. The patient was started on pain medications. His workup included CT scan of the abdomen and pelvis which showed a mild upper abdominal and retrocrural adenopathy and infiltrates in both lungs. CT scan of the chest showed minimal atelectasis at both lung bases. Chest x-ray on 03/22 showed no acute findings. The patient's main complaint is the pain. He states that his pain scale is 10/10 currently. He also complains of pain in the left jaw. When he was seen in the emergency department on March 15, he had complaints of pain in the right jaw. Blood cultures on 03/21 have no growth. His white blood cell count has increased, it climbed to 31.7 yesterday, and today it is 30.0. PAST MEDICAL HISTORY: 1. Sickle cell disease. 2. Cholecystectomy. 3. Left knee surgery. 4. Port placement. ALLERGIES: NO KNOWN DRUG ALLERGIES. MEDICATIONS: 1. Cefepime IV. 2. Folic acid. 3. Colace. 4. Hydroxyurea. 5. Percocet 10 PRN. 6. Dilaudid. SOCIAL HISTORY: No tobacco, no alcohol. No illicit drugs. FAMILY HISTORY: Noncontributory. REVIEW OF SYSTEMS: Pertinents mentioned above in the history of present illness. PHYSICAL EXAMINATION: GENERAL: This is a thin male who is in no acute distress. He is awake although he gets drowsy. During my interview, he would drift off to sleep intermittently and at other times he would stay awake to answer questions. He appears lethargic. VITAL SIGNS: Include temperature of 96.5, blood pressure 109/71, respirations 18, heart rate 111. HEAD, EYES, EARS, NOSE, THROAT: The head is atraumatic. The face has tenderness on palpation of the left temporomandibular area. Tenderness on opening and closing of the jaw. Extraocular movements grossly intact, pupils reactive to light. Sclerae are pale. Oropharynx has positive thrush. Slightly dry mucosa. NECK: Supple without adenopathy. LUNGS: Decreased breath sounds bilateral. HEART: Regular S1 and S2. No murmurs, rubs or gallops. ABDOMEN: Bowel sounds present, soft, mild tenderness particularly at the lower quadrants. RECTAL: Not performed. EXTREMITIES: No clubbing or cyanosis or edema. NEUROLOGIC: No gross focal findings. PSYCHIATRIC: The patient is calm and cooperative. LABORATORY DATA: WBCs 30.0, platelets 225,000, 76% neutrophils, 2% bands, 10% monocytes. His hemoglobin is 6.9. Creatinine 0.51, BUN 7, estimated GFR 227, sodium 134, total bilirubin in 4.4. LDH 865. IMPRESSION: 1. Sickle cell pain crisis. This involves multiple areas including the temporomandibular joint. 2. Leukocytosis. No clear evidence suggesting acute infection. There is report of infiltrate on CT scan of the abdomen and pelvis; however, CT scan of the chest just shows minimal atelectasis at the lung bases. The patient also has anemia based on his CBC, part of the white blood cell count could be due to hemoconcentration. She however had an elevated temperature of 102 degrees yesterday and therefore will need to pay close attention for possibility of infection as well. RECOMMENDATIONS: 1. Continue cefepime. 2. Monitor blood cultures. 3. Monitor clinical symptoms. 4. Monitor temperature and the white blood cell count and continue to monitor the patient's response to pain medications. Thank you for this consultation. I will follow the patient's progress and will intervene if necessary based on culture results and his temperature. Thank you for this consultation. Gonzalez Rodriguez MD FD/MAURIZIO /3:38 PM /4:01 PM MTDEbony
--- NOTE | 2017-03-23 18:22 | PD.ONC.PN ---
Subjective Subjective Remarks Patient was seen and examined, vital signs, medications, labs and imaging studies were reviewed. Case discussed with the patient's RN and the patient's attending. Subjectively; he reports severe pain involving primarily his right upper extremity as well as his abdomen. He tells me the IV pain medications seems not to be very helpful. Red blood cell transfusion has been ordered today for hemoglobin of 6.9 g/dL. CT scan of the thorax performed yesterday was reviewed, there was no evidence of infiltrates to suggest pneumonia or acute chest syndrome. Objective Data Date Time Temp Pulse Resp B/P (MAP) Pulse Ox O2 Delivery O2 Flow Rate FiO2 03/23/17 16:00 100.3 110 14 117/72 (87) 98 03/23/17 14:38 Nasal Cannula 2.00 03/23/17 12:00 96.5 111 18 109/71 (84) 93 03/23/17 08:00 97.8 105 14 117/81 (93) 99 03/23/17 04:00 100.1 120 18 124/70 (88) 95 03/23/17 00:00 98.5 122 18 122/70 (87) 98 03/22/17 21:40 99 Nasal Cannula 3.00 03/22/17 21:00 106 03/22/17 20:00 98.4 120 18 112/68 (83) 98 03/23/17 03/23/17 03/23/17 07:00 15:00 23:00 Intake Total 2100 ml 358 ml 300 ml Output Total 1500 ml 400 ml 400 ml Balance 600 ml -42 ml -100 ml Result Diagram: 03/23/17 0510 03/23/17 0510 Laboratory Results Laboratory Tests Test 03/23/17 05:10 03/23/17 14:05 White Blood Count 30.0 TH/MM3 Corrected White Blood Count 21.9 TH/MM3 Red Blood Count 2.18 MIL/MM3 Hemoglobin 6.9 GM/DL Hematocrit 20.4 % Mean Corpuscular Volume 93.4 FL Mean Corpuscular Hemoglobin 31.5 PG Mean Corpuscular Hemoglobin Concent 33.8 % Red Cell Distribution Width 19.4 % Platelet Count 225 TH/MM3 Mean Platelet Volume 9.1 FL CBC Comment AUTO DIFF Differential Total Cells Counted 100 Neutrophils % (Manual) 76 % Band Neutrophils % 2 % Lymphocytes % 11 % Monocytes % 10 % Basophils % 1 % Neutrophils # (Manual) 17.1 TH/MM3 Nucleated Red Blood Cells 37 /100 WBC Differential Comment FINAL DIFF MANUAL Platelet Estimate NORMAL Platelet Morphology Comment NORMAL Basophilic Stippling MOD Sickle Cells 2+ Target Cells 1+ Ovalocytes 1+ Stomatocytes 1+ Rouleau PRESENT Keratocytes OCC Reticulocyte Count 12.9 % Absolute Reticulocyte Count 263.5 MIL/L Blood Urea Nitrogen 7 MG/DL Creatinine 0.51 MG/DL Random Glucose 85 MG/DL Total Protein 7.6 GM/DL Albumin 2.8 GM/DL Calcium Level 7.8 MG/DL Alkaline Phosphatase 131 U/L Aspartate Amino Transf (AST/SGOT) 42 U/L Alanine Aminotransferase (ALT/SGPT) 13 U/L Lactate Dehydrogenase 865 U/L Total Bilirubin 4.4 MG/DL Sodium Level 134 MEQ/L Potassium Level 3.8 MEQ/L Chloride Level 101 MEQ/L Carbon Dioxide Level 27.6 MEQ/L Anion Gap 5 MEQ/L Estimat Glomerular Filtration Rate 227 ML/MIN Culture Results Microbiology Date/Time Source Procedure Growth Status 03/21/17 00:15 Blood Line Aerobic Blood Culture - Preliminary NO GROWTH IN 1 DAY Resulted 03/21/17 00:15 Blood Line Anaerobic Blood Culture - Preliminary NO GROWTH IN 1 DAY Resulted 03/21/17 00:12 Blood Line Aerobic Blood Culture - Preliminary NO GROWTH IN 1 DAY Resulted 03/21/17 00:12 Blood Line Anaerobic Blood Culture - Preliminary NO GROWTH IN 1 DAY Resulted Administered Medications Medications (Trade) Dose Ordered Sig/Thomas Route PRN Reason Start Time Stop Time Status Last Admin Dose Admin Sodium Chloride (NS Flush) 2 ml BID IV FLUSH 03/20/17 09:00 03/23/17 08:54 Docusate Sodium (Colace) 100 mg Q12HR PO 03/20/17 09:00 03/23/17 08:54 Hydroxyurea (Hydrea) 500 mg DAILY PO 03/20/17 09:00 03/23/17 08:58 Oxycodone/ Acetaminophen (Percocet 10-325 Mg) 1 tab Q4H PRN PO pain 6-10 03/20/17 09:00 03/20/17 16:10 Ondansetron HCl (Zofran Inj) 4 mg Q8HR PRN IV PUSH nausea 03/20/17 09:00 03/21/17 19:40 Acetaminophen (Tylenol) 650 mg Q4H PRN PO SEE LABEL COMMENTS 03/20/17 09:15 03/23/17 05:07 Enoxaparin Sodium (Lovenox Inj) 40 mg Q24H SQ 03/20/17 10:00 03/23/17 08:53 Sodium Chloride 1,000 ml @ 125 mls/hr Q8H IV 03/21/17 11:30 03/23/17 13:52 Acetaminophen (Tylenol) 650 mg Q4H PRN PO fever, headache 03/21/17 14:00 03/22/17 13:42 Folic Acid (Folate) 1 mg DAILY PO 03/21/17 23:00 03/23/17 08:54 Hydromorphone HCl (Dilaudid Pf Inj) 2 mg Q4H IV 03/22/17 02:00 03/23/17 17:39 Cefepime HCl 2000 mg/Sodium Chloride 100 ml @ 200 mls/hr Q8H IV 03/22/17 15:00 03/23/17 13:52 Multi-Ingredient Mouthwash/Gargle (Magic Mouthwash Adult Liq) 10 ml QID SWISH-SWAL 03/22/17 18:00 03/23/17 13:52 Objective Remarks GENERAL: Young male, laying in bed, eyes closed, mumbling responses, family at bedside including his children. He appears to be in pain. SKIN: Warm and dry. HEAD: Normocephalic. EYES: No scleral icterus. No injection or drainage. NECK: Supple, trachea midline. No JVD or lymphadenopathy. LYMPHATIC: No adenopathy. CARDIOVASCULAR: Tachycardic, regular, S1-S2 no murmurs gallops. RESPIRATORY: Decreased bibasilar breath sounds, no rhonchi wheezes or rails noted. GASTROINTESTINAL: Abdomen is tender even to light touch, no palpable organ enlargement. EXTREMITIES: No cyanosis, or edema. MUSCULOSKELETAL: Generally decreased muscle mass, tenderness of the right upper extremity even to light touch. NEUROLOGICAL: No obvious focal deficit. Awake, alert, and oriented x3. PSYCHIATRIC: He is awake, he is responsive, eyes are mostly closed during the entirety of the interview. He seems alert and oriented. Assessment/Plan Problem List: (1) Anemia ICD Codes: D64.9 - Anemia, unspecified Status: Acute (2) Atypical pneumonia ICD Codes: J18.9 - Pneumonia, unspecified organism Status: Resolved (3) Sickle cell crisis ICD Codes: D57.00 - Hb-SS disease with crisis, unspecified Status: Acute Plan: Patient reports his pain crisis at present is severe, he reports having 3 or 4 such severe pain crises per year. He is under the care of one of the [facility] cancer specialists in [facility] and typically receives his inpatient care at [facility]. He is on hydroxyurea for disease modifying therapy. And requires pretty high doses of opioid analgesics for management of pain crises. His is at bedside and she tells me there has been in the past discussions about exchange transfusions to help prevent pain crises. The patient however has declined exchange transfusions thus far. (4) Sickle cell anemia ICD Codes: D57.1 - Sickle-cell disease without crisis Status: Chronic Assessment 1. Sickle cell pain crisis: -Continue folic acid supplementation. Continue hydrea therapy. -Continue current pain medication regimen. I would urge caution with reference to bolus intravenous push of opioids. I've suggested if the patient does require IV opioids the opioid dose be mixed in a 150 mL bag with normal saline and infused over 30-60 minutes. This should decrease the risk of respiratory suppression. -Maintain input and output net even. I talked to the patient about incentive spirometer usage and how this may help improve his pain. He tells me the incentive spirometers may work for other people but these tend to make his pain worse so he will not use an incentive spirometer. 2. Anemia: due to SSA. Hemoglobin 6.9 g/dL today. 1 unit packed red blood cells ordered and is hanging at this time. 3. Fever: on cefepime and vancomycin, changed today. Blood cultures pending. He does not have tachypnea, intercostal retraction, chest pain, cough, wheezing. He is on 2 liters of nasal cannula. Will check CT chest. CT abdomen unrevealing. 4. VTE ppx with lovenox. 5. Indirect hyperbilirubinemia: due to sickle cell disease Plan Problem Qualifiers (1) Anemia: Ross Toussaint MD Mar 23, 2017 18:22
[2017-03-24] VITALS: BP 109/66; PULSE 107; RESP 20; TEMP 99.7; O2SAT 93
[2017-03-24 00:06] LABS: MEAN CELL VOLUME 92.4 FL (80.0-100.0); MEAN CORPUSCULAR HEMOGLOBIN 31.6 PG (27.0-34.0); MEAN CORPUSCULAR HGB CONC 34.2 % (32.0-36.0); PLATELET COUNT 302 TH/MM3 (150-450); RED BLOOD COUNT 2.38 MIL/MM3 (4.50-5.90); RED CELL DISTRIBUTION WIDTH 18.5 % (11.6-17.2); WHITE BLOOD COUNT 24.6 TH/MM3 (4.0-11.0)
[2017-03-24] MEDS: oxyCODONE/ACETAMINOPHEN 10 MG/325 MG TAB PO PRN ×3 (00:07→21:02)
[2017-03-24 00:09] LABS: REVIEW FLAG FINAL
[2017-03-24] MEDS: HYDROmorphone HCL PF 2 MG/ML VIAL IV SCH ×6 (02:07→22:32)
[2017-03-24] MEDS ORDERED: diphenhydrAMINE HCL 25 MG CAP PO ONE (02:45)
[2017-03-24] MEDS: SODIUM CHLOR 0.9% 1000 ML INJ 1,000 ML IV SCH ×4 (03:30→19:28)
[2017-03-24] MEDS: CEFEPIME INJ 2,000 MG in SODIUM CHLORIDE 0.9% INJ 100 ML IV SCH ×3 (05:50→22:32)
[2017-03-24 06:19] LABS: HEMATOCRIT 23.3 % (39.0-51.0); MEAN CORPUSCULAR HEMOGLOBIN 30.2 PG (27.0-34.0); MEAN CORPUSCULAR HGB CONC 33.2 % (32.0-36.0); PLATELET COUNT 363 TH/MM3 (150-450); RED BLOOD COUNT 2.56 MIL/MM3 (4.50-5.90); WHITE BLOOD COUNT 25.1 TH/MM3 (4.0-11.0)
[2017-03-24 06:20] LABS: HEMO FLAGS AUTO DIFF
[2017-03-24 06:23] LABS: CHLORIDE 100 MEQ/L (98-107); SODIUM (NA) 136 MEQ/L (136-145)
[2017-03-24 06:28] LABS: ANION GAP 7 MEQ/L (5-15); BLOOD UREA NITROGEN 6 MG/DL (7-18); CORRECTED NUCLEATED RBC 19 /100 WBC (0-0); CORRECTED WBC 21.1 TH/MM3 (4.0-11.0); EOSINOPHILS 3 % (0-4); NEUTROPHIL # MANUAL DIFF 18.6 TH/MM3 (1.8-7.7); POLYS (SEG NEUTROPHILS) 88 % (16-70); WBC DIFF SAMPLE 100
[2017-03-24 06:29] LABS: OVALOCYTES 1+ (NORMAL); PLATELET ESTIMATE SMEAR NORMAL (NORMAL); PLATELET MORPHOLOGY NORMAL (NORMAL); POLYCHROMASIA 2.5 % (0.0-1.9); SCAN/DIFF FINAL DIFF MANUAL; SICKLE CELLS 1+ (NORMAL); TARGET CELLS 2+ (NORMAL)
[2017-03-24 06:31] LABS: ALT (GPT) 12 U/L (12-78); AST (GOT) 31 U/L (15-37); GLOMERULAR FILTRATION RATE 309 ML/MIN (>89)
[2017-03-24 06:40] LABS: ALKALINE PHOSPHATASE 120 U/L (45-117); TOTAL BILIRUBIN ADULT 2.3 MG/DL (0.2-1.0)
[2017-03-24 08:00] VITALS: BP 108/64; PULSE 108; RESP 18; TEMP 98.4; O2SAT 94
[2017-03-24] MEDS: DOCUSATE SODIUM 100 MG CAP PO SCH ×3 (09:00→20:07)
[2017-03-24] MEDS: SODIUM CHLORIDE 0.9% FLUSH 10 ML FLUSH IV FLUSH SCH ×2 (09:00→20:07)
[2017-03-24] MEDS: FOLIC ACID 1 MG TAB PO SCH (09:00)
[2017-03-24] MEDS: HYDROXYUREA 500 MG CAP PO SCH (09:03)
[2017-03-24] MEDS: NYSTAT/DIPHENHY/LIDO MOUTHWASH (Adult) 120ML SWISH-SWAL SCH ×4 (09:09→20:07)
[2017-03-24] MEDS: ENOXAPARIN SODIUM 40 MG/0.4 ML SYRINGE SQ SCH ×2 (11:08→11:09)
[2017-03-24 12:00] VITALS: BP 108/66; PULSE 98; RESP 18; TEMP 98.4; O2SAT 95
--- NOTE | 2017-03-24 12:49 | HHI.PR ---
Subjective Remarks The patient was complaining that he was getting his pain medication regularly enough. He did understand that too much pain medication can lead to difficulties with breathing as he said it has happened to him before. He said he will try to drink ensure. He will try to take the oxycodone if he is able to eat. Still complains of abdominal pain. Has been passing gas. Discussed with nursing. Objective Vitals Vital Signs Date Time Temp Pulse Resp B/P (MAP) Pulse Ox O2 Delivery O2 Flow Rate FiO2 03/24/17 08:00 98.4 108 18 108/64 (79) 94 03/24/17 00:00 99.7 107 20 109/66 (80) 93 03/23/17 20:00 100.2 104 20 126/76 (93) 100 03/23/17 18:36 99.2 108 16 125/72 98 03/23/17 18:21 99.8 118 14 118/75 99 03/23/17 16:00 100.3 110 14 117/72 (87) 98 03/23/17 14:38 Nasal Cannula 2.00 I/O 03/23/17 03/23/17 03/23/17 03/24/17 03/24/17 03/24/17 07:00 15:00 23:00 07:00 15:00 23:00 Intake Total 2100 ml 358 ml 740 ml 1340 ml Output Total 1500 ml 400 ml 400 ml 1050 ml Balance 600 ml -42 ml 340 ml 290 ml Intake Oral 358 ml 240 ml IV Total 2100 ml 300 ml 1100 ml Packed Cells 400 ml Blood Product IV Normal Saline Flush 40 ml Output Urine Total 1500 ml 400 ml 400 ml 1050 ml # Voids 1 Result Diagram: 03/24/17 0545 03/24/17 0545 Imaging Last Impressions Chest X-Ray 03/22/17 0800 Signed Impressions: Service Date/Time: February 09:27 - CONCLUSION: No acute findings. Chronic mild diffuse interstitial prominence and diffuse osteosclerosis, unchanged from prior. Al Elliott MD Chest CT 03/22/17 0000 Signed Impressions: Service Date/Time: February 19:38 - CONCLUSION: Minimal atelectasis of both lung bases. Otherwise negative noncontrast head CT. Hesham Chung MD Abdomen/Pelvis CT 03/21/17 0000 Signed Impressions: Service Date/Time: Tuesday, March 21, 2017 16:19 - CONCLUSION: 1. Mild upper abdominal and retrocrural adenopathy. 2. Diffuse osteosclerosis. 3. Infiltrates in both lower lungs. Al Elliott MD Objective Remarks GENERAL: This is a well-nourished, well-developed patient, uncomfortable. SKIN: No rashes, ecchymoses or lesions. Cool and dry. HEAD: Atraumatic. Normocephalic. No temporal or scalp tenderness. EYES: Pupils equal round and reactive. Extraocular motions intact. No scleral icterus. No injection or drainage. ENT: Nose without bleeding, purulent drainage or septal hematoma. Thrush noted on tongue. Tender to palpation at left TMJ joint. NECK: Trachea midline. No JVD or lymphadenopathy. Supple, tender to palpation, no meningeal signs. CARDIOVASCULAR: Tachycardia without murmurs, gallops, or rubs. RESPIRATORY: Clear to auscultation. Breath sounds equal bilaterally. No wheezes , rales, or rhonchi. GASTROINTESTINAL: Abdomen soft, generalized tenderness to palpation, nondistended. No hepato-splenomegaly, or palpable masses. MUSCULOSKELETAL: Extremities without clubbing, cyanosis, or edema. No joint tenderness, effusion, or edema noted. NEUROLOGICAL: Awake and alert. Cranial nerves II through XII intact. Motor and sensory grossly within normal limits. Five out of 5 muscle strength in all muscle groups. Normal speech. PSYCH: Flattened affect. Medications and IVs Current Medications Medications (Trade) Dose Ordered Sig/Thomas Route Start Time Stop Time Status Last Admin (NS Flush) 2 ml UNSCH PRN IV FLUSH 03/20/17 01:00 (NS Flush) 2 ml BID IV FLUSH 03/20/17 09:00 03/23/17 08:54 (Narcan Inj) 0.4 mg UNSCH PRN IV PUSH 03/20/17 01:00 (Colace) 100 mg Q12HR PO 03/20/17 09:00 03/23/17 21:00 (Hydrea) 500 mg DAILY PO 03/20/17 09:00 03/24/17 09:03 (Percocet 5-325 Mg) 1 tab Q4H PRN PO 03/20/17 09:00 (Percocet 10-325 Mg) 1 tab Q4H PRN PO 03/20/17 09:00 03/24/17 06:21 (Zofran Inj) 4 mg Q8HR PRN IV PUSH 03/20/17 09:00 03/21/17 19:40 (Tylenol) 650 mg Q4H PRN PO 03/20/17 09:15 03/23/17 05:07 (Lovenox Inj) 40 mg Q24H SQ 03/20/17 10:00 03/23/17 08:53 Sodium Chloride 1,000 ml @ 125 mls/hr Q8H IV 03/21/17 11:30 03/24/17 05:38 (Tylenol) 650 mg Q4H PRN PO 03/21/17 14:00 03/22/17 13:42 (Folate) 1 mg DAILY PO 03/21/17 23:00 03/24/17 09:00 (Dilaudid Pf Inj) 2 mg Q4H IV 03/22/17 02:00 03/24/17 05:45 Cefepime HCl 2000 mg/Sodium Chloride 100 ml @ 200 mls/hr Q8H IV 03/22/17 15:00 03/24/17 05:50 (Magic Mouthwash Adult Liq) 10 ml QID SWISH-SWAL 03/22/17 18:00 03/24/17 09:09 (Senokot) 17.2 mg DAILY PO 03/24/17 12:45 UNV A/P Problem List: (1) Sickle cell anemia ICD Code: D57.1 - Sickle-cell disease without crisis Status: Chronic Assessment and Plan Sickle cell crisis The pt describes severe lower abdominal pain, groin pain, hip and flank pain. Afebrile at this time. Hgb 6.8 03/20. Hematology consult appreciated. - follow with hematology. - Pain management per heme and avoid oversedation. Currently on IV Dilaudid. Encouraged to try oxycodone to help space out IV meds. - antiemetics as needed. - blood transfusion ordered 03/20 and03/23. Stable. Follow CBC. - IVFs. Leukocytosis/ Fever CXR and UA unremarkable. Has significant abdominal pain. CT abdomen with consolidation in the lower lungs. Has a sore throat. CT chest negative for PNA. ID consult appreciated. - antibiotics changed to cefepime. - rapid strep pending. - magic mouthwash for thrush. - ID following. Hypokalemia S/t decreased PO intake. - IVFs with KCl ordered. Monitor and replete as needed. Resolved. DVT prophylaxis: Lovenox Discharge Planning Awaiting clinical improvement Miquel Steward DO Mar 24, 2017 12:49
[2017-03-24] MEDS: SENNOSIDES 8.6 MG TAB PO SCH (14:26)
--- NOTE | 2017-03-24 18:03 | HHI.IDPN ---
Note Infectious Disease Note Patient says the pain is the same. No fever or chills. temp lower. Presented to the emergency department with diffuse pains. PAST MEDICAL HISTORY: 1. Sickle cell disease. 2. Cholecystectomy. 3. Left knee surgery. 4. Port placement. ALLERGIES: NO KNOWN DRUG ALLERGIES. ANTIBIOTICS: Cefepime IV SOCIAL HISTORY: No tobacco, no alcohol. No illicit drugs. OBJECTIVE: Vital Signs Date Time Temp Pulse Resp B/P (MAP) Pulse Ox O2 Delivery O2 Flow Rate FiO2 03/24/17 12:00 98.4 98 18 108/66 (80) 95 03/24/17 08:00 98.4 108 18 108/64 (79) 94 03/24/17 00:00 99.7 107 20 109/66 (80) 93 03/23/17 20:00 100.2 104 20 126/76 (93) 100 03/23/17 18:36 99.2 108 16 125/72 98 03/23/17 18:21 99.8 118 14 118/75 99 Laboratory Tests Test 03/23/17 05:10 03/23/17 23:40 03/24/17 05:45 White Blood Count 30.0 TH/MM3 24.6 TH/MM3 25.1 TH/MM3 Corrected White Blood Count 21.9 TH/MM3 21.1 TH/MM3 Red Blood Count 2.18 MIL/MM3 2.38 MIL/MM3 2.56 MIL/MM3 Hemoglobin 6.9 GM/DL 7.5 GM/DL 7.7 GM/DL Hematocrit 20.4 % 22.0 % 23.3 % Mean Corpuscular Volume 93.4 FL 92.4 FL 91.0 FL Mean Corpuscular Hemoglobin 31.5 PG 31.6 PG 30.2 PG Mean Corpuscular Hemoglobin Concent 33.8 % 34.2 % 33.2 % Red Cell Distribution Width 19.4 % 18.5 % 18.0 % Platelet Count 225 TH/MM3 302 TH/MM3 363 TH/MM3 Mean Platelet Volume 9.1 FL 9.1 FL 9.0 FL CBC Comment AUTO DIFF AUTO DIFF Differential Total Cells Counted 100 100 Neutrophils % (Manual) 76 % 88 % Band Neutrophils % 2 % Lymphocytes % 11 % 6 % Monocytes % 10 % 3 % Basophils % 1 % Neutrophils # (Manual) 17.1 TH/MM3 18.6 TH/MM3 Nucleated Red Blood Cells 37 /100 WBC 19 /100 WBC Differential Comment FINAL DIFF MANUAL FINAL DIFF MANUAL Platelet Estimate NORMAL NORMAL Platelet Morphology Comment NORMAL NORMAL Basophilic Stippling MOD Sickle Cells 2+ 1+ Target Cells 1+ 2+ Ovalocytes 1+ 1+ Stomatocytes 1+ Rouleau PRESENT Keratocytes OCC Reticulocyte Count 12.9 % Absolute Reticulocyte Count 263.5 MIL/L Eosinophils % 3 % Polychromasia 2.5 % Laboratory Tests Test 03/23/17 05:10 03/24/17 05:45 Blood Urea Nitrogen 7 MG/DL 6 MG/DL Creatinine 0.51 MG/DL 0.39 MG/DL Random Glucose 85 MG/DL 82 MG/DL Total Protein 7.6 GM/DL 7.9 GM/DL Albumin 2.8 GM/DL 2.7 GM/DL Calcium Level 7.8 MG/DL 8.1 MG/DL Alkaline Phosphatase 131 U/L 120 U/L Aspartate Amino Transf (AST/SGOT) 42 U/L 31 U/L Alanine Aminotransferase (ALT/SGPT) 13 U/L 12 U/L Lactate Dehydrogenase 865 U/L Total Bilirubin 4.4 MG/DL 2.3 MG/DL Sodium Level 134 MEQ/L 136 MEQ/L Potassium Level 3.8 MEQ/L 4.0 MEQ/L Chloride Level 101 MEQ/L 100 MEQ/L Carbon Dioxide Level 27.6 MEQ/L 29.0 MEQ/L Anion Gap 5 MEQ/L 7 MEQ/L Estimat Glomerular Filtration Rate 227 ML/MIN 309 ML/MIN IMAGING: Chest X-Ray 03/22/17 0800 Signed Impressions: Service Date/Time: February 09:27 - CONCLUSION: No acute findings. Chronic mild diffuse interstitial prominence and diffuse osteosclerosis, unchanged from prior. Al Elliott MD Chest CT 03/22/17 0000 Signed Impressions: Service Date/Time: February 19:38 - CONCLUSION: Minimal atelectasis of both lung bases. Otherwise negative noncontrast head CT. Hesham Chung MD Abdomen/Pelvis CT 03/21/17 0000 Signed Impressions: Service Date/Time: Tuesday, March 21, 2017 16:19 - CONCLUSION: 1. Mild upper abdominal and retrocrural adenopathy. 2. Diffuse osteosclerosis. 3. Infiltrates in both lower lungs. Al Elliott MD PHYSICAL EXAMINATION: GENERAL: No acute distress. Drowsy. HEAD, EYES, EARS, NOSE, THROAT: The head is atraumatic. The face has tenderness on palpation of the left temporomandibular area. Tenderness on opening and closing of the jaw. Extraocular movements grossly intact, pupils reactive to light. Sclerae are pale. Oropharynx has positive thrush. Slightly dry mucosa. NECK: Supple without adenopathy. LUNGS: Decreased breath sounds. HEART: Regular S1 and S2. No murmurs, rubs or gallops. ABDOMEN: Bowel sounds present, soft, mild tenderness at the lower quadrants. EXTREMITIES: No clubbing or cyanosis or edema. NEUROLOGIC: No gross focal findings. PSYCHIATRIC: The patient is calm and cooperative. IMPRESSION: 1. Sickle cell pain crisis. This involves multiple areas including the temporomandibular joint. 2. Leukocytosis. No clear evidence suggesting acute infection. RECOMMENDATIONS: 1. Continue cefepime. 2. Monitor blood cultures. 3. Monitor clinical symptoms. 4. Monitor temperature and the white blood cell count. Ashok Rodriguez MD Mar 24, 2017 18:03
[2017-03-24 20:00] VITALS: BP 121/66; PULSE 111; RESP 18; TEMP 99; O2SAT 94
[2017-03-25] VITALS: BP 114/64; PULSE 100; RESP 18; TEMP 98.2; O2SAT 92
[2017-03-25] MEDS: HYDROmorphone HCL PF 2 MG/ML VIAL IV SCH ×3 (02:48→10:05)
[2017-03-25] MEDS: SODIUM CHLOR 0.9% 1000 ML INJ 1,000 ML IV SCH ×3 (02:48→19:30)
[2017-03-25 05:40] LABS: HEMATOCRIT 21.2 % (39.0-51.0); MEAN CELL VOLUME 91.2 FL (80.0-100.0); MEAN CORPUSCULAR HGB CONC 31.9 % (32.0-36.0); PLATELET COUNT 487 TH/MM3 (150-450); RED BLOOD COUNT 2.32 MIL/MM3 (4.50-5.90); RED CELL DISTRIBUTION WIDTH 17.9 % (11.6-17.2); WHITE BLOOD COUNT 19.4 TH/MM3 (4.0-11.0)
[2017-03-25 05:46] LABS: HEMO FLAGS AUTO DIFF
[2017-03-25 05:56] LABS: BANDS 1 % (0-6); BASOPHILS 1 % (0-2); CORRECTED NUCLEATED RBC 28 /100 WBC (0-0); CORRECTED WBC 15.2 TH/MM3 (4.0-11.0); EOSINOPHILS 1 % (0-4); NEUTROPHIL # MANUAL DIFF 12.8 TH/MM3 (1.8-7.7); POLYCHROMASIA 2.5 % (0.0-1.9); POLYS (SEG NEUTROPHILS) 83 % (16-70); WBC DIFF SAMPLE 100
[2017-03-25 05:57] LABS: ACANTHOCYTES 1+ (NORMAL); OVALOCYTES 1+ (NORMAL); PLATELET ESTIMATE SMEAR HIGH (NORMAL); PLATELET MORPHOLOGY NORMAL (NORMAL); SCAN/DIFF FINAL DIFF MANUAL; SICKLE CELLS 1+ (NORMAL); TARGET CELLS 2+ (NORMAL)
[2017-03-25] MEDS ORDERED: SODIUM CHLOR 0.9% 250 ML INJ 250 ML IV ONE ×2 (06:00→11:00)
[2017-03-25] MEDS: CEFEPIME INJ 2,000 MG in SODIUM CHLORIDE 0.9% INJ 100 ML IV SCH ×3 (06:08→22:29)
[2017-03-25 08:00] VITALS: BP 108/64; PULSE 72; RESP 18; TEMP 98.8; O2SAT 96
[2017-03-25] MEDS: FOLIC ACID 1 MG TAB PO SCH (08:28)
[2017-03-25] MEDS: oxyCODONE/ACETAMINOPHEN 10 MG/325 MG TAB PO PRN (08:29)
[2017-03-25] MEDS: SENNOSIDES 8.6 MG TAB PO SCH (08:30)
[2017-03-25] MEDS: SODIUM CHLORIDE 0.9% FLUSH 10 ML FLUSH IV FLUSH SCH ×2 (09:00→20:09)
[2017-03-25] MEDS: DOCUSATE SODIUM 100 MG CAP PO SCH ×2 (09:00→20:10)
[2017-03-25] MEDS: HYDROXYUREA 500 MG CAP PO SCH (09:33)
[2017-03-25] MEDS: NYSTAT/DIPHENHY/LIDO MOUTHWASH (Adult) 120ML SWISH-SWAL SCH ×4 (10:03→20:10)
[2017-03-25 12:00] VITALS: BP 106/60; PULSE 88; RESP 18; TEMP 97.9; O2SAT 100
--- NOTE | 2017-03-25 14:02 | HHI.PR ---
Subjective Remarks Patient seen and examined today for follow-up on sickle cell crisis. Patient very lethargic, somnolent, unable to carry on a conversation. Having mumbled speech. Patient appears be highly medicated. I notified patient that his clinical findings are significantly improving. Laboratory studies indicating resolution of hemolysis. However patient could not carry on conversation. We' ll need to adjust pain medication. Objective Vitals Vital Signs Date Time Temp Pulse Resp B/P (MAP) Pulse Ox O2 Delivery O2 Flow Rate FiO2 03/25/17 12:00 97.9 88 18 106/60 (75) 100 03/25/17 11:17 20 03/25/17 09:29 20 03/25/17 08:00 98.8 72 18 108/64 (79) 96 03/25/17 00:00 98.2 100 18 114/64 (81) 92 03/24/17 20:00 99.0 111 18 121/66 (84) 94 I/O 03/24/17 03/24/17 03/24/17 03/25/17 03/25/17 03/25/17 07:00 15:00 23:00 07:00 15:00 23:00 Intake Total 1340 ml 2120 ml 240 ml Output Total 1050 ml 1450 ml Balance 290 ml 670 ml 240 ml Intake Oral 240 ml 720 ml 240 ml IV Total 1100 ml 1400 ml Output Urine Total 1050 ml 1450 ml Result Diagram: 03/25/17 0530 03/24/17 0545 Objective Remarks GENERAL: Well-developed, cachectic, in no acute distress. Very somnolent, lethargic, unable to maintain conversation. HEENT: Head is normocephalic without any lesions or masses noted. Facial features are symmetric. Eyes: Extraocular muscles are intact. NECK: Supple without any masses. Trachea midline no deviation. No JVD, CARDIAC: Regular rhythm, regular rate. S1/S2 are heard. No murmurs gallops or rubs. LUNGS: Clear to auscultation bilaterally. No wheeze, rhonchi or rales. No use of accessory muscles on inspiration or expiration. ABDOMEN: Soft, nontender. Nondistended. Bowel sounds heard in all 4 quadrants. No organomegaly or masses. Negative rebound, negative guarding EXTREMITIES: No edema, pulses are equal bilaterally. No cyanosis or clubbing NEUROLOGY: Mood and affect appear appropriate. Cranial nerves II through XII grossly intact. Moving all extremities, speech is mumbled Urinary Catheter: No Vascular Central Line Catheter: No A/P Assessment and Plan Sickle cell crisis Patient presented with severe lower abdominal pain, groin pain, hip and flank pain. - Hematology following the patient, discussed with him today about further treatment - We'll adjust medications per hematology recommendations of adding Dilaudid to 100 cc of normal saline infusing over 30 minutes. Will decrease to Percocet 5 mg every 4 hours - antiemetics as needed. - blood transfusion ordered 03/20, 03/23, 03/25. Stable. Follow CBC. - Continue IV fluid. Leukocytosis/ Fever - Infectious workup was ascertain and CT of the abdomen did indicate consolidations in bilateral lower lungs. CT of the chest did not indicate any pneumonia - infectious disease consultation was performed, indicating leukocytosis is no clear evidence of infection. - Recommending continuation of cefepime. - magic mouthwash for thrush. . Hypokalemia, corrected S/t decreased PO intake. - IVFs with KCl ordered. - Monitor and replete as needed DVT prophylaxis: - Lovenox, patient refusing Harry Allen Mar 25, 2017 14:02
[2017-03-25] MEDS: SODIUM CHLORIDE 0.9% INJ 100 ML IV SCH ×3 (14:21→21:54)
[2017-03-25] MEDS: HYDROmorphone HCL PF 1 MG/ML VIAL IV SCH ×3 (14:21→21:54)
[2017-03-25 16:00] VITALS: BP 121/76; PULSE 84; RESP 18; TEMP 98.2; O2SAT 100
[2017-03-25 19:53] VITALS: BP 121/75; PULSE 82; RESP 18; TEMP 98.5; O2SAT 100
[2017-03-25] MEDS: KETOROLAC TROMETHAMINE 60 MG/2 ML (IM) VIAL IM PRN (20:13)
[2017-03-26] VITALS (12 sets, daily range): BP systolic 88–115; BP diastolic 54–77; PULSE 57–86; RESP 16–18; TEMP 96.8–98.4; O2SAT 98–100
[2017-03-26] MEDS: SODIUM CHLORIDE 0.9% INJ 100 ML IV SCH ×2 (01:12→06:08)
[2017-03-26] MEDS: HYDROmorphone HCL PF 1 MG/ML VIAL IV SCH ×2 (01:12→06:07)
[2017-03-26] MEDS: KETOROLAC TROMETHAMINE 60 MG/2 ML (IM) VIAL IM PRN ×2 (03:25→10:02)
[2017-03-26] MEDS: SODIUM CHLOR 0.9% 1000 ML INJ 1,000 ML IV SCH ×3 (06:07→19:44)
[2017-03-26] MEDS: CEFEPIME INJ 2,000 MG in SODIUM CHLORIDE 0.9% INJ 100 ML IV SCH ×3 (06:43→23:48)
[2017-03-26 06:51] LABS: MEAN CELL VOLUME 91.8 FL (80.0-100.0); MEAN CORPUSCULAR HEMOGLOBIN 29.6 PG (27.0-34.0); MEAN CORPUSCULAR HGB CONC 32.3 % (32.0-36.0); PLATELET COUNT 640 TH/MM3 (150-450); RED BLOOD COUNT 2.23 MIL/MM3 (4.50-5.90); RED CELL DISTRIBUTION WIDTH 17.9 % (11.6-17.2); WHITE BLOOD COUNT 15.1 TH/MM3 (4.0-11.0)
[2017-03-26 07:03] LABS: CHLORIDE 104 MEQ/L (98-107); POTASSIUM 3.5 MEQ/L (3.5-5.1); SODIUM (NA) 141 MEQ/L (136-145)
[2017-03-26 07:11] LABS: ANION GAP 10 MEQ/L (5-15); BICARBONATE 26.6 MEQ/L (21.0-32.0); BLOOD UREA NITROGEN 5 MG/DL (7-18)
[2017-03-26 07:14] LABS: ALT (GPT) 11 U/L (12-78); AST (GOT) 22 U/L (15-37); GLOMERULAR FILTRATION RATE 319 ML/MIN (>89)
[2017-03-26 07:16] LABS: TOTAL BILIRUBIN ADULT 1.1 MG/DL (0.2-1.0)
[2017-03-26 07:17] LABS: ALKALINE PHOSPHATASE 113 U/L (45-117)
[2017-03-26 07:32] LABS: HEMO FLAGS AUTO DIFF
[2017-03-26 07:34] LABS: HEMATOCRIT 20.4 % (39.0-51.0)
[2017-03-26 07:57] LABS: BANDS 1 % (0-6); BASOPHILS 1 % (0-2); CORRECTED NUCLEATED RBC 24 /100 WBC (0-0); CORRECTED WBC 12.2 TH/MM3 (4.0-11.0); EOSINOPHILS 6 % (0-4); MYELOCYTES 1 % (0-0); NEUTROPHIL # MANUAL DIFF 8.5 TH/MM3 (1.8-7.7); POLYS (SEG NEUTROPHILS) 68 % (16-70); WBC DIFF SAMPLE 100
[2017-03-26 07:59] LABS: TARGET CELLS 3+ (NORMAL)
[2017-03-26 08:00] LABS: OVALOCYTES 1+ (NORMAL); PLATELET ESTIMATE SMEAR HIGH (NORMAL); PLATELET MORPHOLOGY NORMAL (NORMAL); SCAN/DIFF FINAL DIFF MANUAL; TEARDROP RBCS 1+ (NORMAL)
[2017-03-26] MEDS: NYSTAT/DIPHENHY/LIDO MOUTHWASH (Adult) 120ML SWISH-SWAL SCH ×5 (09:00→20:57)
[2017-03-26] MEDS: DOCUSATE SODIUM 100 MG CAP PO SCH ×2 (09:00→20:55)
[2017-03-26] MEDS: SODIUM CHLORIDE 0.9% FLUSH 10 ML FLUSH IV FLUSH SCH ×2 (09:00→20:58)
[2017-03-26 09:31] LABS: LDH SERUM 472 U/L (87-241)
[2017-03-26] MEDS: ENOXAPARIN SODIUM 40 MG/0.4 ML SYRINGE SQ SCH (09:55)
[2017-03-26] MEDS: FOLIC ACID 1 MG TAB PO SCH (09:56)
[2017-03-26] MEDS: HYDROXYUREA 500 MG CAP PO SCH (10:12)
--- NOTE | 2017-03-26 11:30 | HHI.PR ---
Subjective Remarks Patient seen and examined today for follow-up on sickle cell crisis. Patient still cannot maintain conversation. Still with mumbled speech. All he indicates is the pain. Review of records states that he is no longer using and when necessary medication, he is only using scheduled Dilaudid and Toradol for breakthrough. We'll need to adjust pain medication Objective Vitals Vital Signs Date Time Temp Pulse Resp B/P (MAP) Pulse Ox O2 Delivery O2 Flow Rate FiO2 03/26/17 08:00 97.8 86 16 100/56 (71) 100 03/26/17 03:45 98.4 74 16 103/61 (75) 100 03/25/17 19:53 98.5 82 18 121/75 (90) 100 03/25/17 18:37 20 03/25/17 16:00 98.2 84 18 121/76 (91) 100 03/25/17 12:00 97.9 88 18 106/60 (75) 100 I/O 03/25/17 03/25/17 03/25/17 03/26/17 03/26/17 03/26/17 07:00 15:00 23:00 07:00 15:00 23:00 Intake Total 2120 ml 240 ml 1953 ml 1780 ml Output Total 1450 ml 825 ml 800 ml 950 ml 600 ml Balance 670 ml -585 ml 1153 ml 830 ml -600 ml Intake Oral 720 ml 240 ml 580 ml IV Total 1400 ml 1953 ml 1200 ml Output Urine Total 1450 ml 825 ml 800 ml 950 ml 600 ml Result Diagram: 03/26/1760403/26/17604 Objective Remarks GENERAL: Well-developed, cachectic, in no acute distress. Still Very somnolent , lethargic, unable to maintain conversation. HEENT: Head is normocephalic without any lesions or masses noted. Facial features are symmetric. Eyes: Extraocular muscles are intact. NECK: Supple without any masses. Trachea midline no deviation. No JVD, CARDIAC: Regular rhythm, regular rate. S1/S2 are heard. No murmurs gallops or rubs. LUNGS: Clear to auscultation bilaterally. No wheeze, rhonchi or rales. No use of accessory muscles on inspiration or expiration. ABDOMEN: Soft, nontender. Nondistended. Bowel sounds heard in all 4 quadrants. No organomegaly or masses. Negative rebound, negative guarding EXTREMITIES: No edema, pulses are equal bilaterally. No cyanosis or clubbing NEUROLOGY: Mood and affect appear appropriate. Cranial nerves II through XII grossly intact. Moving all extremities, speech is mumbled Urinary Catheter: No Vascular Central Line Catheter: No A/P Assessment and Plan Sickle cell crisis Patient presented with severe lower abdominal pain, groin pain, hip and flank pain. - Hematology following the patient, discussed with him today about further treatment - Continue to adjust pain medication Oxycodone 5/525 every 4 hours as needed for pain 1-5 Oxycodone 10/325 one tablet every 4 hours as needed for pain 6-10 Dilaudid 1 mg/100 mL normal saline infused over 30 minutes every 4 hours, will change to only give for breakthrough pain, after taking by mouth medication. Anticipate discontinuing all Dilaudid tomorrow - antiemetics as needed. - blood transfusion ordered 03/20, 03/23, 03/26. Follow CBC. - Continue IV fluid. Leukocytosis/ Fever - Afebrile at this time with leukocytosis improving - Infectious workup was ascertain and CT of the abdomen did indicate consolidations in bilateral lower lungs. CT of the chest did not indicate any pneumonia - infectious disease consultation was performed, indicating leukocytosis is no clear evidence of infection. - Recommending continuation of cefepime. - magic mouthwash for thrush. . Hypokalemia, corrected S/t decreased PO intake. - IVFs with KCl ordered. - Monitor and replete as needed DVT prophylaxis: - Lovenox, patient refusing Harry Allen Mar 26, 2017 11:30
[2017-03-26] MEDS ORDERED: SODIUM CHLORIDE 0.9% INJ 100 ML IV PRN (11:45)
[2017-03-26] MEDS: oxyCODONE/ACETAMINOPHEN 10 MG/325 MG TAB PO PRN ×3 (13:31→21:57)
--- NOTE | 2017-03-26 15:21 | HHI.IDPN ---
Note Infectious Disease Note Patient says the pain is the same. Says he has pain in the shoulders knees and stomach which is the same intensity as when he came in. No fever or chills. Afebrile. Presented to the emergency department with diffuse pains. PAST MEDICAL HISTORY: 1. Sickle cell disease. 2. Cholecystectomy. 3. Left knee surgery. 4. Port placement. ALLERGIES: NO KNOWN DRUG ALLERGIES. ANTIBIOTICS: Cefepime IV SOCIAL HISTORY: No tobacco, no alcohol. No illicit drugs. OBJECTIVE: Vital Signs Date Time Temp Pulse Resp B/P (MAP) Pulse Ox O2 Delivery O2 Flow Rate FiO2 03/26/17 14:44 97.7 65 17 99/64 100 03/26/17 14:39 17 03/26/17 14:29 98.2 70 16 88/60 100 03/26/17 14:15 97.2 65 17 93/57 100 03/26/17 13:59 97.7 64 17 110/77 100 03/26/17 13:27 97.6 86 17 96/57 100 03/26/17 12:00 97.5 79 17 101/65 (77) 98 03/26/17 08:00 97.8 86 16 100/56 (71) 100 03/26/17 03:45 98.4 74 16 103/61 (75) 100 03/25/17 19:53 98.5 82 18 121/75 (90) 100 03/25/17 18:37 20 03/25/17 16:00 98.2 84 18 121/76 (91) 100 Laboratory Tests Test 03/25/17 05:30 03/26/17 06:05 White Blood Count 19.4 TH/MM3 15.1 TH/MM3 Corrected White Blood Count 15.2 TH/MM3 12.2 TH/MM3 Red Blood Count 2.32 MIL/MM3 2.23 MIL/MM3 Hemoglobin 6.7 GM/DL 6.6 GM/DL Hematocrit 21.2 % 20.4 % Mean Corpuscular Volume 91.2 FL 91.8 FL Mean Corpuscular Hemoglobin 29.0 PG 29.6 PG Mean Corpuscular Hemoglobin Concent 31.9 % 32.3 % Red Cell Distribution Width 17.9 % 17.9 % Platelet Count 487 TH/MM3 640 TH/MM3 Mean Platelet Volume 8.5 FL 8.8 FL CBC Comment AUTO DIFF AUTO DIFF Differential Total Cells Counted 100 100 Neutrophils % (Manual) 83 % 68 % Band Neutrophils % 1 % 1 % Lymphocytes % 6 % 16 % Monocytes % 8 % 7 % Eosinophils % 1 % 6 % Basophils % 1 % 1 % Neutrophils # (Manual) 12.8 TH/MM3 8.5 TH/MM3 Nucleated Red Blood Cells 28 /100 WBC 24 /100 WBC Differential Comment FINAL DIFF MANUAL FINAL DIFF MANUAL Platelet Estimate HIGH HIGH Platelet Morphology Comment NORMAL NORMAL Polychromasia 2.5 % Sickle Cells 1+ Target Cells 2+ 3+ Ovalocytes 1+ 1+ Acanthocytes 1+ Myelocytes 1 % Tear Drop Cells 1+ Laboratory Tests Test 03/26/17 06:05 Blood Urea Nitrogen 5 MG/DL Creatinine 0.38 MG/DL Random Glucose 76 MG/DL Total Protein 7.4 GM/DL Albumin 2.4 GM/DL Calcium Level 8.4 MG/DL Alkaline Phosphatase 113 U/L Aspartate Amino Transf (AST/SGOT) 22 U/L Alanine Aminotransferase (ALT/SGPT) 11 U/L Lactate Dehydrogenase 472 U/L Total Bilirubin 1.1 MG/DL Sodium Level 141 MEQ/L Potassium Level 3.5 MEQ/L Chloride Level 104 MEQ/L Carbon Dioxide Level 26.6 MEQ/L Anion Gap 10 MEQ/L Estimat Glomerular Filtration Rate 319 ML/MIN IMAGING: Chest X-Ray 03/22/17 0800 Signed Impressions: Service Date/Time: February 09:27 - CONCLUSION: No acute findings. Chronic mild diffuse interstitial prominence and diffuse osteosclerosis, unchanged from prior. Al Elliott MD Chest CT 03/22/17 0000 Signed Impressions: Service Date/Time: February 19:38 - CONCLUSION: Minimal atelectasis of both lung bases. Otherwise negative noncontrast head CT. Hesham Chung MD Abdomen/Pelvis CT 03/21/17 0000 Signed Impressions: Service Date/Time: Tuesday, March 21, 2017 16:19 - CONCLUSION: 1. Mild upper abdominal and retrocrural adenopathy. 2. Diffuse osteosclerosis. 3. Infiltrates in both lower lungs. Al Elliott MD PHYSICAL EXAMINATION: GENERAL: No acute distress. HEAD, EYES, EARS, NOSE, THROAT: The head is atraumatic. The face has less tenderness on palpation of the left temporomandibular area. Tenderness on opening and closing of the jaw. Extraocular movements grossly intact, pupils reactive to light. Sclerae are pale. Oropharynx has positive thrush. Slightly dry mucosa. NECK: Supple without adenopathy. LUNGS: Decreased breath sounds. HEART: Regular S1 and S2. No murmurs, rubs or gallops. ABDOMEN: Bowel sounds present, soft. EXTREMITIES: No clubbing or cyanosis or edema. NEUROLOGIC: No gross focal findings. PSYCHIATRIC: Calm and cooperative. IMPRESSION: 1. Sickle cell pain crisis. Pt notes significant pain still. 2. Leukocytosis. No clear evidence suggesting acute infection. WBC improving. RECOMMENDATIONS: 1. Continue Cefepime. Can discontinue antibiotic on discharge or when WBC decreases to below 10,000. 2. Monitor clinical symptoms. 3. Monitor temperature and the white blood cell count. Please reconsult if additional ID input is needed. Ashok Rodriguez MD Mar 26, 2017 15:21
--- NOTE | 2017-03-26 18:29 | PD.ONC.PN ---
Subjective Subjective Remarks Patient seen and examined, vital signs, medications and labs reviewed. He remains in pain, he tells me his pain is suboptimally managed with the current combination of oral and intravenous opioids. He is however more awake and alert today. His and [id number] are at the bedside. Objective Data Date Time Temp Pulse Resp B/P (MAP) Pulse Ox O2 Delivery O2 Flow Rate FiO2 03/26/17 16:00 97.7 81 17 93/56 (68) 99 03/26/17 15:49 97.5 57 16 98/66 100 03/26/17 15:12 97.9 63 16 99/54 100 03/26/17 14:44 97.7 65 17 99/64 100 03/26/17 14:39 17 03/26/17 14:29 98.2 70 16 88/60 100 03/26/17 14:15 97.2 65 17 93/57 100 03/26/17 13:59 97.7 64 17 110/77 100 03/26/17 13:27 97.6 86 17 96/57 100 03/26/17 12:00 97.5 79 17 101/65 (77) 98 03/26/17 08:00 97.8 86 16 100/56 (71) 100 03/26/17 03:45 98.4 74 16 103/61 (75) 100 03/25/17 19:53 98.5 82 18 121/75 (90) 100 03/25/17 18:37 20 03/26/17 03/26/17 03/26/17 07:00 15:00 23:00 Intake Total 1780 ml 875 ml Output Total 950 ml 1300 ml Balance 830 ml -1300 ml 875 ml Result Diagram: 03/26/1760403/26/17604 Laboratory Results Laboratory Tests Test 03/26/17 06:05 White Blood Count 15.1 TH/MM3 Corrected White Blood Count 12.2 TH/MM3 Red Blood Count 2.23 MIL/MM3 Hemoglobin 6.6 GM/DL Hematocrit 20.4 % Mean Corpuscular Volume 91.8 FL Mean Corpuscular Hemoglobin 29.6 PG Mean Corpuscular Hemoglobin Concent 32.3 % Red Cell Distribution Width 17.9 % Platelet Count 640 TH/MM3 Mean Platelet Volume 8.8 FL CBC Comment AUTO DIFF Differential Total Cells Counted 100 Neutrophils % (Manual) 68 % Band Neutrophils % 1 % Lymphocytes % 16 % Monocytes % 7 % Eosinophils % 6 % Basophils % 1 % Neutrophils # (Manual) 8.5 TH/MM3 Myelocytes 1 % Nucleated Red Blood Cells 24 /100 WBC Differential Comment FINAL DIFF MANUAL Platelet Estimate HIGH Platelet Morphology Comment NORMAL Target Cells 3+ Tear Drop Cells 1+ Ovalocytes 1+ Blood Urea Nitrogen 5 MG/DL Creatinine 0.38 MG/DL Random Glucose 76 MG/DL Total Protein 7.4 GM/DL Albumin 2.4 GM/DL Calcium Level 8.4 MG/DL Alkaline Phosphatase 113 U/L Aspartate Amino Transf (AST/SGOT) 22 U/L Alanine Aminotransferase (ALT/SGPT) 11 U/L Lactate Dehydrogenase 472 U/L Total Bilirubin 1.1 MG/DL Sodium Level 141 MEQ/L Potassium Level 3.5 MEQ/L Chloride Level 104 MEQ/L Carbon Dioxide Level 26.6 MEQ/L Anion Gap 10 MEQ/L Estimat Glomerular Filtration Rate 319 ML/MIN Administered Medications Medications (Trade) Dose Ordered Sig/Thomas Route PRN Reason Start Time Stop Time Status Last Admin Dose Admin Sodium Chloride (NS Flush) 2 ml BID IV FLUSH 03/20/17 09:00 03/23/17 08:54 Docusate Sodium (Colace) 100 mg Q12HR PO 03/20/17 09:00 03/23/17 21:00 Hydroxyurea (Hydrea) 500 mg DAILY PO 03/20/17 09:00 03/26/17 10:12 Oxycodone/ Acetaminophen (Percocet 10-325 Mg) 1 tab Q4H PRN PO pain 6-10 03/20/17 09:00 03/26/17 18:08 Ondansetron HCl (Zofran Inj) 4 mg Q8HR PRN IV PUSH nausea 03/20/17 09:00 03/21/17 19:40 Acetaminophen (Tylenol) 650 mg Q4H PRN PO SEE LABEL COMMENTS 03/20/17 09:15 03/23/17 05:07 Enoxaparin Sodium (Lovenox Inj) 40 mg Q24H SQ 03/20/17 10:00 03/23/17 08:53 Sodium Chloride 1,000 ml @ 125 mls/hr Q8H IV 03/21/17 11:30 03/26/17 11:55 Acetaminophen (Tylenol) 650 mg Q4H PRN PO fever, headache 03/21/17 14:00 03/22/17 13:42 Folic Acid (Folate) 1 mg DAILY PO 03/21/17 23:00 03/26/17 09:56 Cefepime HCl 2000 mg/Sodium Chloride 100 ml @ 200 mls/hr Q8H IV 03/22/17 15:00 03/26/17 16:06 Multi-Ingredient Mouthwash/Gargle (Magic Mouthwash Adult Liq) 10 ml QID SWISH-SWAL 03/22/17 18:00 03/25/17 20:10 Objective Remarks GENERAL: Young male, laying in bed, eyes closed, mumbling responses, family at bedside including his children. He appears to be in pain. SKIN: Warm and dry. HEAD: Normocephalic. EYES: No scleral icterus. No injection or drainage. NECK: Supple, trachea midline. No JVD or lymphadenopathy. LYMPHATIC: No adenopathy. CARDIOVASCULAR: Tachycardic, regular, S1-S2 no murmurs gallops. RESPIRATORY: Decreased bibasilar breath sounds, no rhonchi wheezes or rails noted. GASTROINTESTINAL: Abdomen is tender even to light touch, no palpable organ enlargement. EXTREMITIES: No cyanosis, or edema. MUSCULOSKELETAL: Generally decreased muscle mass, tenderness of the right upper extremity even to light touch. NEUROLOGICAL: No obvious focal deficit. Awake, alert, and oriented x3. PSYCHIATRIC: He is awake, he is responsive, eyes are mostly closed during the entirety of the interview. He seems alert and oriented. Assessment/Plan Problem List: (1) Anemia ICD Codes: D64.9 - Anemia, unspecified Status: Acute (2) Atypical pneumonia ICD Codes: J18.9 - Pneumonia, unspecified organism Status: Resolved (3) Sickle cell crisis ICD Codes: D57.00 - Hb-SS disease with crisis, unspecified Status: Acute Plan: Patient reports his pain crisis at present is severe, he reports having 3 or 4 such severe pain crises per year. He is under the care of one of the [facility] cancer specialists in [facility] and typically receives his inpatient care at [facility]. He is on hydroxyurea for disease modifying therapy. And requires pretty high doses of opioid analgesics for management of pain crises. His is at bedside and she tells me there has been in the past discussions about exchange transfusions to help prevent pain crises. The patient however has declined exchange transfusions thus far. (4) Sickle cell anemia ICD Codes: D57.1 - Sickle-cell disease without crisis Status: Chronic Assessment 1. Sickle cell pain crisis: Continue folic acid supplementation. Continue hydrea therapy. -Maintain input and output net even. I talked to the patient about incentive spirometer usage and how this may help improve his pain. He tells me the incentive spirometers may work for other people but these tend to make his pain worse so he will not use an incentive spirometer. 2. Anemia: due to SSA. Hemoglobin 6.6 g/dL today. LDH is improved, total bilirubin levels also improved. I anticipate his pain should begin to improve over the next 2448 hrs. 3. Fever: on cefepime and vancomycin, changed today. Blood cultures pending. He does not have tachypnea, intercostal retraction, chest pain, cough, wheezing. He is on 2 liters of nasal cannula. Will check CT chest. CT abdomen unrevealing. 4. VTE prophylaxis with Lovenox; but the patient has been refusing. Disposition: Continue supportive care. I talked to the patient again today about considering therapeutic red cell exchange transfusions and to talk to his primary taproom attendant about this. The patient's inquired about CBD oil as a means of managing his pain crisis ; I advised the consult with a certified cannabis specialist. Plan Problem Qualifiers (1) Anemia: Ross Toussaint MD Mar 26, 2017 18:29
[2017-03-26] MEDS: HYDROmorphone HCL PF 1 MG/ML VIAL IV PRN ×2 (19:41→23:46)
[2017-03-27] VITALS: BP 100/55; PULSE 67; RESP 16; TEMP 97.8; O2SAT 98
[2017-03-27] MEDS: SODIUM CHLOR 0.9% 1000 ML INJ 1,000 ML IV SCH ×3 (01:34→18:45)
[2017-03-27] MEDS: oxyCODONE/ACETAMINOPHEN 10 MG/325 MG TAB PO PRN ×5 (02:00→22:01)
[2017-03-27] MEDS: HYDROmorphone HCL PF 1 MG/ML VIAL IV PRN ×3 (03:46→14:05)
[2017-03-27] MEDS: CEFEPIME INJ 2,000 MG in SODIUM CHLORIDE 0.9% INJ 100 ML IV SCH ×3 (06:02→21:53)
[2017-03-27 06:39] LABS: AUTOMATED NEUTROPHIL # 10.2 TH/MM3 (1.8-7.7); BASOPHIL # 0.2 TH/MM3 (0-0.2); BASOPHIL % 1.4 % (0.0-2.0); EOSINOPHIL # 0.8 TH/MM3 (0-0.4); EOSINOPHIL % 5.3 % (0.0-4.0); HEMATOCRIT 25.4 % (39.0-51.0); LYMPH % 22.1 % (9.0-44.0); LYMPHOCYTE # 3.5 TH/MM3 (1.0-4.8); MEAN CELL VOLUME 87.7 FL (80.0-100.0); MEAN CORPUSCULAR HEMOGLOBIN 27.7 PG (27.0-34.0); MEAN CORPUSCULAR HGB CONC 31.6 % (32.0-36.0); MONO % 7.6 % (0.0-8.0); NEUT % 63.6 % (16.0-70.0); PLATELET COUNT 763 TH/MM3 (150-450); RED BLOOD COUNT 2.89 MIL/MM3 (4.50-5.90); RED CELL DISTRIBUTION WIDTH 21.7 % (11.6-17.2); WHITE BLOOD COUNT 15.9 TH/MM3 (4.0-11.0)
[2017-03-27 07:11] LABS: HEMO FLAGS AUTO DIFF
[2017-03-27 07:37] LABS: ACANTHOCYTES 1+ (NORMAL); CORRECTED NUCLEATED RBC 44 /100 WBC (0-0); EOSINOPHILS 4 % (0-4); METAMYELOCYTES 1 % (0-1); NEUTROPHIL # MANUAL DIFF 6.9 TH/MM3 (1.8-7.7); POLYS (SEG NEUTROPHILS) 62 % (16-70); TARGET CELLS 2+ (NORMAL); WBC DIFF SAMPLE 100
[2017-03-27 07:38] LABS: HOWELL-JOLLY BODIES PRESENT (NONE SEEN); OVALOCYTES 2+ (NORMAL); PLATELET ESTIMATE SMEAR HIGH (NORMAL); PLATELET MORPHOLOGY NORMAL (NORMAL); SCAN/DIFF FINAL DIFF MANUAL; TEARDROP RBCS 1+ (NORMAL)
[2017-03-27 07:40] LABS: POLYCHROMASIA 2.8 % (0.0-1.9)
[2017-03-27 08:00] VITALS: BP 110/56; PULSE 60; RESP 16; O2SAT 100
[2017-03-27] MEDS: DOCUSATE SODIUM 100 MG CAP PO SCH ×2 (09:00→21:00)
[2017-03-27] MEDS: NYSTAT/DIPHENHY/LIDO MOUTHWASH (Adult) 120ML SWISH-SWAL SCH ×4 (09:00→21:52)
[2017-03-27] MEDS: FOLIC ACID 1 MG TAB PO SCH (09:07)
[2017-03-27] MEDS: SODIUM CHLORIDE 0.9% FLUSH 10 ML FLUSH IV FLUSH SCH ×2 (09:09→21:51)
[2017-03-27] MEDS: ENOXAPARIN SODIUM 40 MG/0.4 ML SYRINGE SQ SCH (09:19)
[2017-03-27] MEDS: HYDROXYUREA 500 MG CAP PO SCH (09:31)
[2017-03-27] MEDS ORDERED: LEVOFLOXACIN 500 MG TAB PO SCH (11:00)
[2017-03-27 12:00] VITALS: BP 108/51; PULSE 65; RESP 16; TEMP 98; O2SAT 100
--- NOTE | 2017-03-27 12:35 | HHI.PR ---
Subjective Remarks Patient seen and evaluated in follow-up for sickle cell crisis. Pain medicines adjusted yesterday to improve patient's use of oral regimen No further fever. Hemoglobin stable after 3 units of packed red blood cell ldh improved repeat labs in am Objective Vitals Vital Signs Date Time Temp Pulse Resp B/P (MAP) Pulse Ox O2 Delivery O2 Flow Rate FiO2 03/27/17 09:38 18 03/27/17 08:00 60 16 110/56 (74) 100 03/27/17 07:01 18 03/27/17 00:00 97.8 67 16 100/55 (70) 98 03/26/17 20:00 96.8 76 18 115/66 (82) 100 03/26/17 16:00 97.7 81 17 93/56 (68) 99 03/26/17 15:49 97.5 57 16 98/66 100 03/26/17 15:12 97.9 63 16 99/54 100 03/26/17 14:44 97.7 65 17 99/64 100 03/26/17 14:29 98.2 70 16 88/60 100 03/26/17 14:15 97.2 65 17 93/57 100 03/26/17 13:59 97.7 64 17 110/77 100 03/26/17 13:27 97.6 86 17 96/57 100 I/O 03/26/17 03/26/17 03/26/17 03/27/17 03/27/17 03/27/17 07:00 15:00 23:00 07:00 15:00 23:00 Intake Total 1780 ml 875 ml 1375 ml 100 ml Output Total 950 ml 1300 ml 400 ml 1800 ml 1000 ml Balance 830 ml -1300 ml 475 ml -425 ml -900 ml Intake Oral 580 ml IV Total 1200 ml 475 ml 1375 ml 100 ml Packed Cells 400 ml Output Urine Total 950 ml 1300 ml 400 ml 1800 ml 1000 ml # Voids 2 2 Result Diagram: 03/27/1759903/26/17 06 Objective Remarks GENERAL: This is a well-nourished, well-developed patient, complaining of pain CARDIOVASCULAR: Regular rate and rhythm without murmurs, gallops, or rubs. RESPIRATORY: Clear to auscultation. Breath sounds equal bilaterally. No wheezes , rales, or rhonchi. GASTROINTESTINAL: Abdomen soft, non-tender, nondistended. Normal active bowel sounds MUSCULOSKELETAL: Extremities without clubbing, cyanosis, or edema. NEURO: Alert & Oriented x4 to person, place, time, situation. Moves all ext x4 A/P Problem List: (1) Sickle cell anemia ICD Code: D57.1 - Sickle-cell disease without crisis Status: Chronic Plan: Continue current IV fluids, oral medications preferred as per current prescriptions No clear evidence of infection, will follow on IV cefepime until leukocytes normalized, then changed to oral continue Magic mouthwash Discharge Planning hopefully d/c in am pending wbc's Norah Rucker MD Mar 27, 2017 12:35
[2017-03-27 14:00] VITALS: BP 110/71; PULSE 70; RESP 12; O2SAT 98
[2017-03-27 16:00] VITALS: BP 112/60; PULSE 64; RESP 16; TEMP 98.1; O2SAT 100
[2017-03-27] MEDS: HYDROmorphone HCL 2 MG TAB PO PRN (18:45)
[2017-03-27 20:00] VITALS: BP 109/64; PULSE 70; RESP 16; TEMP 98.2; O2SAT 99
[2017-03-28] VITALS: BP 112/69; PULSE 70; RESP 16; TEMP 98.4; O2SAT 98
[2017-03-28] MEDS: SODIUM CHLOR 0.9% 1000 ML INJ 1,000 ML IV SCH ×2 (03:32→11:30)
[2017-03-28] MEDS: oxyCODONE/ACETAMINOPHEN 10 MG/325 MG TAB PO PRN ×2 (05:08→09:02)
[2017-03-28 05:23] LABS: MEAN CELL VOLUME 88.8 FL (80.0-100.0); MEAN CORPUSCULAR HEMOGLOBIN 29.2 PG (27.0-34.0); MEAN CORPUSCULAR HGB CONC 32.8 % (32.0-36.0); PLATELET COUNT 731 TH/MM3 (150-450); RED CELL DISTRIBUTION WIDTH 21.9 % (11.6-17.2); WHITE BLOOD COUNT 13.9 TH/MM3 (4.0-11.0)
[2017-03-28 05:36] LABS: HEMO FLAGS AUTO DIFF
[2017-03-28] MEDS: CEFEPIME INJ 2,000 MG in SODIUM CHLORIDE 0.9% INJ 100 ML IV SCH ×2 (05:44→14:00)
[2017-03-28 07:11] LABS: CORRECTED NUCLEATED RBC 94 /100 WBC (0-0); CORRECTED WBC 7.2 TH/MM3 (4.0-11.0); EOSINOPHILS 6 % (0-4); NEUTROPHIL # MANUAL DIFF 4.1 TH/MM3 (1.8-7.7); POLYS (SEG NEUTROPHILS) 57 % (16-70); WBC DIFF SAMPLE 100
[2017-03-28 07:13] LABS: ACANTHOCYTES 1+ (NORMAL); OVALOCYTES 1+ (NORMAL); PLATELET ESTIMATE SMEAR HIGH (NORMAL); PLATELET MORPHOLOGY NORMAL (NORMAL); SCAN/DIFF FINAL DIFF MANUAL; TARGET CELLS 3+ (NORMAL)
[2017-03-28 07:50] VITALS: BP 101/60; PULSE 60; RESP 20; TEMP 98.2; O2SAT 98
[2017-03-28] MEDS: FOLIC ACID 1 MG TAB PO SCH (08:58)
[2017-03-28] MEDS: HYDROXYUREA 500 MG CAP PO SCH (08:58)
[2017-03-28] MEDS: ENOXAPARIN SODIUM 40 MG/0.4 ML SYRINGE SQ SCH (08:59)
[2017-03-28] MEDS: NYSTAT/DIPHENHY/LIDO MOUTHWASH (Adult) 120ML SWISH-SWAL SCH ×3 (09:00→14:09)
[2017-03-28] MEDS: SODIUM CHLORIDE 0.9% FLUSH 10 ML FLUSH IV FLUSH SCH (09:00)
[2017-03-28] MEDS: DOCUSATE SODIUM 100 MG CAP PO SCH (09:00)
[2017-03-28] MEDS ORDERED: OXYC1TAB36 PO (11:36)
[2017-03-28] MEDS ORDERED: LEVO500T8 PO (11:36)
--- NOTE | 2017-03-28 11:37 | HHI.DCPOC ---
Discharge Care Plan Diagnosis: (1) Sickle cell crisis (2) Atypical pneumonia Goals to Promote Your Health * To prevent worsening of your condition and complications * To maintain your health at the optimal level Directions to Meet Your Goals Take your medications as prescribed Follow your dietary instruction Follow activity as directed Keep your appointments as scheduled Take your immunizations and boosters as scheduled If your symptoms worsen call your PCP, if no PCP go to Urgent Care Center or Emergency Room Smoking is Dangerous to Your Health. Avoid second hand smoke Call the 24-hour hour crisis hotline for domestic abuse at Norah Rucker MD Mar 28, 2017 11:37
--- NOTE | 2017-03-28 11:40 | HHI.DS ---
Discharge Summary Admission Date Mar 20, 2017 at 08:59 Discharge Date: Mar 28, 2017 Admitting Diagnosis (1) Sickle cell anemia ICD Code: D57.1 - Sickle-cell disease without crisis Status: Chronic Procedures none Brief History - From Admission The patient is a 31-year-old male with a past medical history of sickle cell disease who is presenting to the hospital with severe pain. He says his last sickle cell crisis was on and he went to the emergency department in [place] at that time. He said his lower abdomen, groin and hips are hurting him. He also endorses flank pain. He says the pain is severe in nature and does not go away. He said that he has been nauseous but has not been vomiting. He denies any diarrhea. He says he has not been eating well. He has been trying to drink fluids. He did endorse a fever today but was unsure of how high it went. He said he believes he will need up to 4 mg of IV Dilaudid at this point. He denies any chest pain or shortness of breath. CBC/BMP: 03/28/17 0505 03/26/17 0605 Significant Findings Laboratory Tests Test 03/26/17 06:05 03/27/17 06:00 03/28/17 05:05 White Blood Count 15.1 TH/MM3 (4.0-11.0) 15.9 TH/MM3 (4.0-11.0) 13.9 TH/MM3 (4.0-11.0) Corrected White Blood Count 12.2 TH/MM3 (4.0-11.0) Red Blood Count 2.23 MIL/MM3 (4.50-5.90) 2.89 MIL/MM3 (4.50-5.90) 2.70 MIL/MM3 (4.50-5.90) Hemoglobin 6.6 GM/DL (13.0-17.0) 8.0 GM/DL (13.0-17.0) 7.9 GM/DL (13.0-17.0) Hematocrit 20.4 % (39.0-51.0) 25.4 % (39.0-51.0) 24.0 % (39.0-51.0) Red Cell Distribution Width 17.9 % (11.6-17.2) 21.7 % (11.6-17.2) 21.9 % (11.6-17.2) Platelet Count 640 TH/MM3 (150-450) 763 TH/MM3 (150-450) 731 TH/MM3 (150-450) Eosinophils % 6 % (0-4) 6 % (0-4) Neutrophils # (Manual) 8.5 TH/MM3 (1.8-7.7) Myelocytes 1 % (0-0) Nucleated Red Blood Cells 24 /100 WBC (0-0) 44 /100 WBC (0-0) 94 /100 WBC (0-0) Platelet Estimate HIGH (NORMAL) HIGH (NORMAL) HIGH (NORMAL) Target Cells 3+ (NORMAL) 2+ (NORMAL) 3+ (NORMAL) Tear Drop Cells 1+ (NORMAL) 1+ (NORMAL) Ovalocytes 1+ (NORMAL) 2+ (NORMAL) 1+ (NORMAL) Blood Urea Nitrogen 5 MG/DL (7-18) Creatinine 0.38 MG/DL (0.60-1.30) Albumin 2.4 GM/DL (3.4-5.0) Calcium Level 8.4 MG/DL (8.5-10.1) Alanine Aminotransferase (ALT/SGPT) 11 U/L (12-78) Lactate Dehydrogenase 472 U/L (87-241) Total Bilirubin 1.1 MG/DL (0.2-1.0) Mean Corpuscular Hemoglobin Concent 31.6 % (32.0-36.0) Eosinophils (%) (Auto) 5.3 % (0.0-4.0) Neutrophils # (Auto) 10.2 TH/MM3 (1.8-7.7) Monocytes # (Auto) 1.2 TH/MM3 (0-0.9) Eosinophils # (Auto) 0.8 TH/MM3 (0-0.4) Monocytes % 10 % (0-8) Polychromasia 2.8 % (0.0-1.9) Acanthocytes 1+ (NORMAL) 1+ (NORMAL) Imaging Last Impressions Chest X-Ray 03/22/17 0800 Signed Impressions: Service Date/Time: February 09:27 - CONCLUSION: No acute findings. Chronic mild diffuse interstitial prominence and diffuse osteosclerosis, unchanged from prior. Al Elliott MD Chest CT 03/22/17 0000 Signed Impressions: Service Date/Time: February 19:38 - CONCLUSION: Minimal atelectasis of both lung bases. Otherwise negative noncontrast head CT. Hesham Chung MD Abdomen/Pelvis CT 03/21/17 0000 Signed Impressions: Service Date/Time: Tuesday, March 21, 2017 16:19 - CONCLUSION: 1. Mild upper abdominal and retrocrural adenopathy. 2. Diffuse osteosclerosis. 3. Infiltrates in both lower lungs. Al Elliott MD PE at Discharge GENERAL: This is a well-nourished, well-developed patient, complaining of pain CARDIOVASCULAR: Regular rate and rhythm without murmurs, gallops, or rubs. RESPIRATORY: Clear to auscultation. Breath sounds equal bilaterally. No wheezes , rales, or rhonchi. GASTROINTESTINAL: Abdomen soft, non-tender, nondistended. Normal active bowel sounds MUSCULOSKELETAL: Extremities without clubbing, cyanosis, or edema. NEURO: Alert & Oriented x4 to person, place, time, situation. Moves all ext x4 Pt update on day of discharge patient seen today in follow-up for pain related to sickle cell Pain is improved and patient tolerating diet, oral medications. Ambulatory Hospital Course This patient is a 31-year-old gentleman with sickle cell disease who came into the hospital complaining of acute pain with associated fever, chills and leukocytosis. Patient was given IV antibiotics empirically. Cultures were negative. Patient was seen by infectious disease team and recommended for continuing empiric antibiotics. Patient continue with IV hydration, improvement in leukocytosis and improvement in pain. Fever resolved. Patient was discharged home patient had minimal bowel movements and he was advised to decrease his narcotics. Patient declined any bowel regimen Pt Condition on Discharge: Good Discharge Disposition: Discharge Home Discharge Time: > 30 minutes Discharge Instructions DIET: Follow Instructions for: As Tolerated, No Restrictions Activities you can perform: Regular-No Restrictions Follow up Referrals: PCP Follow-up - 1 Week New Medications: Levofloxacin (Levofloxacin) 500 Mg Tablet 500 MG PO DAILY for Infection, #5 TAB 0 Refills Oxycodone-Acetaminophen (Oxycodone-Acetaminophen) 10-325 mg Tab 1 TAB PO Q4H PRN for pain 6-10, #20 TAB Continued Medications: Docusate Sodium (Dok) 100 Mg Cap 100 MG PO Q12HR for Bowel Management, #20 CAP Hydroxyurea (Hydrea) 500 Mg Cap 500 MG PO DAILY, #60 CAP 0 Refills Prochlorperazine Maleate (Prochlorperazine Maleate) 10 Mg Tab 10 MG PO Q6H PRN for NAUSEA OR VOMITING, #20 TAB 0 Refills Discontinued Medications: Oxycodone-Acetaminophen (Percocet) 7.5-325 mg Tab 1 TAB PO Q6H PRN for PAIN, #20 TAB 0 Refills Norah Rucker MD Mar 28, 2017 11:40
[2017-03-28 11:50] VITALS: BP 102/62; PULSE 56; RESP 20; TEMP 98.1; O2SAT 100
[2017-03-28] MEDS: HYDROmorphone HCL 2 MG TAB PO PRN (14:10)
[2017-03-28] MEDS ORDERED: SODIUM CHLORIDE 0.9% FLUSH 10 ML FLUSH IV FLUSH PRN ×2 (14:30)
== END 2017-03-28 16:48 | disposition home or self-care (01) | DRG 812 ==
LOC: PHEDDLT 01:50 → PH3A 02:00 → OBSVTOIN 08:59 → PH3A 22:49
PROVIDERS: ADMIT Hospitalist; ATTEND Hospitalist
PROC: 30233N1 Transfusion of Nonautologous Red Blood Cells into Peripheral Vein, Percutaneous Approach (ICD-10-PCS; principal; 2017-03-20)
DX: D57.00 Hb-SS disease with crisis, unspecified (principal); B37.0 Candidal stomatitis; E87.6 Hypokalemia; R50.81 Fever presenting with conditions classified elsewhere; J02.9 Acute pharyngitis, unspecified
CPT/HCPCS: 36430; 71010; 71020; 71250; 74176; 80048; 80053; 80076; 81001; 82247; 82248; 82550; 83615; 83690; 83735; 85007; 85014; 85018; 85027; 85044; 86850; 86900; 86901; 86902; 86920; 86922; 87040; 96374; 96375; 96376; J1170; J0692; J1642; J1650; J1885; J1940; J1956; J2405; J3370; J3480; J7030; J7050; P9016; Q9963

== ENCOUNTER 2017-06-10 04:01 | Inpatient (IN) | payer BC, MEDICAID ==
[~2017-06-10] VITALS: Ht 177.8 cm; Wt 62.1 kg
[~2017-06-10 04:01] MED LIST changes: +LEVO500T8 PO; -NALOXONE HCL 0.4 MG/ML AMP IV PUSH PRN; +OXYC1TAB36 PO; -PERC7.5T13 PO; -SODIUM CHLORIDE 0.9% FLUSH 10 ML FLUSH IV FLUSH PRN
[2017-06-10] MEDS ORDERED: SODIUM CHLORIDE 0.9% FLUSH 10 ML FLUSH IV FLUSH PRN (04:45)
[2017-06-10] MEDS ORDERED: MORPHINE SULFATE 4 MG/ML INJ IV PUSH PRN ×2 (04:45)
[2017-06-10 08:00] VITALS: BP 110/62; PULSE 95; RESP 16; TEMP 99.9; O2SAT 97
[2017-06-10] MEDS: ENOXAPARIN SODIUM 40 MG/0.4 ML SYRINGE SQ SCH (08:00)
[2017-06-10] MEDS: SODIUM CHLOR 0.9% 1000 ML INJ 1,000 ML IV SCH ×3 (08:58→23:00)
[2017-06-10] MEDS: SODIUM CHLORIDE 0.9% FLUSH 10 ML FLUSH IV FLUSH SCH ×2 (09:00→19:44)
--- NOTE | 2017-06-10 11:35 | HHI.HP ---
[facility] Service [facility] Primary Care Physician Non-Staff Admission Diagnosis Diagnoses: Chief Complaint: Cough and sickle cell pain Travel History International Travel<30 Days: No Contact w/Intl Traveler <30 Da: No Traveled to Known Affected Are: No History of Present Illness This patient is a 32-year-old gentleman with known history of sickle cell disease. He complains of cough and severe cognitive to induce vomiting. He has had some joint pain now. He has been unable to hold food down and says that his pain is only relieved in the past with IV Dilaudid. He has received IV morphine here with some relief. He has improved somewhat with IV hydration. There is been no fevers or chills are does have leukocytosis and appears quite dehydrated. Patient says his daughter was sick with an ear infection. There is been no fever however he has presented with leukocytosis and anemia. Recently he was in the hospital April for similar complaints. Patient's been recommend for observation hospital due to sickle cell disease and discomfort relating to that Review of Systems Constitutional: COMPLAINS OF: Chills, DENIES: Diaphoretic episodes, Fatigue, Fever, Weight gain, Weight loss, Dizziness, Change in appetite, Night Sweats Endocrine: DENIES: Heat/cold intolerance, Polydipsia, Polyuria, Polyphagia Eyes: DENIES: Blurred vision, Diplopia, Eye inflammation, Eye pain, Vision loss , Photosensitivity, Double Vision Ears, nose, mouth, throat: DENIES: Tinnitus, Hearing loss, Vertigo, Nasal discharge, Oral lesions, Throat pain, Hoarseness, Ear Pain, Running Nose, Epistaxis, Sinus Pain, Toothache, Odynophagia Respiratory: COMPLAINS OF: Cough, DENIES: Apneas, Snoring, Wheezing, Hemoptysis , Sputum production, Shortness of breath Cardiovascular: DENIES: Chest pain, Palpitations, Syncope, Dyspnea on Exertion , PND, Lower Extremity Edema, Orthopnea, Claudication Gastrointestinal: COMPLAINS OF: Abdominal pain, Nausea, Vomiting (review), DENIES: Black stools, Bloody stools, Constipation, Diarrhea, Difficulty Swallowing, Anorexia Genitourinary: DENIES: Sexual dysfunction, Urinary frequency, Urinary incontinence, Urgency, Hematuria, Dysuria, Nocturia, Penile Discharge, Testicular Pain, Testicular Swelling Integumentary: DENIES: Abnormal pigmentation, Nail changes, Pruritus, Rash Hematologic/lymphatic: DENIES: Bruising, Lymphadenopathy Immunologic/allergic: DENIES: Eczema, Urticaria Neurologic: DENIES: Abnormal gait, Headache, Localized weakness, Paresthesias, Seizures, Speech Problems, Tremor, Poor Balance Psychiatric: DENIES: Anxiety, Confusion, Mood changes, Depression, Hallucinations, Agitation, Suicidal Ideation, Homicidal Ideation, Delusions Except as stated in HPI: all other systems reviewed are Neg Past Family Social History Past Medical History Sickle cell disease Past Surgical History Bilateral knee replacement, cholecystectomy Allergies: Coded Allergies: No Known Allergies (Unverified , 03/19/17) Social History Works, lives with his daughter who is sick with a virus Physical Exam Vital Signs Vital Signs Date Time Temp Pulse Resp B/P (MAP) Pulse Ox O2 Delivery O2 Flow Rate FiO2 06/10/17 08:00 99.9 95 16 110/62 (78) 97 Physical Exam GENERAL: This is a thin, well-developed patient, coughing and hoarse SKIN: No rashes, ecchymoses or lesions. Cool and dry. HEAD: Atraumatic. Normocephalic. No temporal or scalp tenderness. EYES: Pupils equal round and reactive. Extraocular motions intact. No scleral icterus. No injection or drainage. ENT: Nose without bleeding, purulent drainage or septal hematoma. Throat without erythema, tonsillar hypertrophy or exudate. Uvula midline. Airway patent. NECK: Trachea midline. No JVD or lymphadenopathy. Supple, nontender, no meningeal signs. CARDIOVASCULAR: Left chest port, Regular rate and rhythm without murmurs, gallops, or rubs. RESPIRATORY: Clear to auscultation. Breath sounds equal bilaterally. No wheezes , rales, or rhonchi. GASTROINTESTINAL: Abdomen soft, non-tender, nondistended. No hepato-splenomegaly , or palpable masses. No guarding. MUSCULOSKELETAL: Extremities without clubbing, cyanosis, or edema. No joint tenderness, effusion, or edema noted. No calf tenderness. Negative Homans sign bilaterally. NEUROLOGICAL: Awake and alert. Cranial nerves II through XII intact. Motor and sensory grossly within normal limits. Five out of 5 muscle strength in all muscle groups. Normal speech. Laboratory Labs from outside facility show WBCs 19.5 thousand, hemoglobin 9.3, platelet 22.5 Reticulocyte count 4.5 Imaging Images pending Septic Shock Reassessment Septic shock perfusion: reassessment completed Caprini VTE Risk Assessment Caprini VTE Risk Assessment: Mod/High Risk (score >= 2) Caprini Risk Assessment Model Point Value = 1 Point Value = 2 Point Value = 3 Point Value = 5 Age 41-60 Minor surgery BMI > 25 kg/m2 Swollen legs Varicose veins or History of unexplained or recurrent spontaneous Oral contraceptives or hormone replacement Sepsis (< 1 month) Serious lung disease, including pneumonia (< 1 month) Abnormal pulmonary function Acute myocardial infarction Congestive heart failure (< 1 month) History of inflammatory bowel disease Medical patient at bed rest Age 61-74 Arthroscopic surgery Major open surgery (> 45 min) Laparoscopic surgery (> 45 min) Malignancy Confined to bed (> 72 hours) Immobilizing plaster cast Central venous access Age >= 75 History of VTE Family history of VTE Factor V Leiden Prothrombin [id number] Lupus anticoagulant Anticardiolipin antibodies Elevated serum homocysteine Heparin-induced thrombocytopenia Other congenital or acquired thrombophilia Stroke (< 1 month) Elective arthroplasty Hip, pelvis, or leg fracture Acute spinal cord injury (< 1 month) Prophylaxis Regimen Total Risk Factor Score Risk Level Prophylaxis Regimen 0-1 Low Early ambulation 2 Moderate Order ONE of the following: *Sequential Compression Device (SCD) *Heparin 5000 units SQ BID 3-4 Higher Order ONE of the following medications: *Heparin 5000 units SQ TID *Enoxaparin/Lovenox 40 mg SQ daily (WT < 150 kg, CrCl > 30 mL/min) *Enoxaparin/Lovenox 30 mg SQ daily (WT < 150 kg, CrCl > 10-29 mL/min) *Enoxaparin/Lovenox 30 mg SQ BID (WT < 150 kg, CrCl > 30 mL/min) AND/OR *Sequential Compression Device (SCD) 5 or more Highest Order ONE of the following medications: *Heparin 5000 units SQ TID (Preferred with Epidurals) *Enoxaparin/Lovenox 40 mg SQ daily (WT < 150 kg, CrCl > 30 mL/min) *Enoxaparin/Lovenox 30 mg SQ daily (WT < 150 kg, CrCl > 10-29 mL/min) *Enoxaparin/Lovenox 30 mg SQ BID (WT < 150 kg, CrCl > 30 mL/min) AND *Sequential Compression Device (SCD) Assessment and Plan Problem List: (1) Sickle cell crisis ICD Code: D57.00 - Hb-SS disease with crisis, unspecified Status: Acute Plan: We'll continue IV hydration Type and screen Follow for transfusion needs Patient follows up with a supervisor drying and softening in [facility] (2) Atypical pneumonia ICD Code: J18.9 - Pneumonia, unspecified organism Status: Resolved Plan: The patient was quite of bit of phlegm and congestion in the chest Chest x-ray pending IV Levaquin sputum pending Physician Certification 2 Midnight Certification Type: Admission for Inpatient Services Order for Inpatient Services The services are ordered in accordance with Medicare regulations or non- Medicare payer requirements, as applicable. In the case of services not specified as inpatient-only, they are appropriately provided as inpatient services in accordance with the 2-midnight benchmark. Estimated LOS (days): 4 4 days is the estimated time the patient will need to remain in the hospital, assuming treatment plan goals are met and no additional complications. Post-Hospital Plan: Home Norah Rucker MD Jun 10, 2017 11:35
[2017-06-10 12:00] VITALS: BP 101/56; PULSE 110; RESP 18; TEMP 100.2; O2SAT 98
--- NOTE | 2017-06-10 12:37 | RADRPT ---
EXAM DATE/TIME: 06/10/2017 12:05 [place] COMPARISON: CHEST PA & LAT, March 22, 2017, 9:27. INDICATIONS : Sickle cell crisis, cough, pain, headache, fever MEDICAL HISTORY : Sickle Cell disease. SURGICAL HISTORY : None. ENCOUNTER: Subsequent ACUITY: 2 days PAIN SCORE: 8/10 LOCATION: Bilateral chest FINDINGS: PA and lateral views of the chest. Left-sided [id number] remains in place. The lungs are clear. Ca rdiomediastinal silhouette within normal limits. No evidence of pleural effusion or pneumothorax. CONCLUSION: No acute cardiopulmonary disease identified. Camilo Espinoza MD on June 10, 2017 at 12:34 Board Certified Radiologist. This report was verified electronically.
[2017-06-10] MEDS: KETOROLAC TROMETHAMINE 30 MG/ML (IVP) VIAL IV PUSH SCH ×2 (12:43→17:40)
[2017-06-10] MEDS: LEVOFLOXACIN 500 MG PREMIX INJ 100 ML IV SCH (12:45)
[2017-06-10 12:54] LABS: AUTOMATED NEUTROPHIL # 13.3 TH/MM3 (1.8-7.7); BASOPHIL # 0.2 TH/MM3 (0-0.2); HEMATOCRIT 28.3 % (39.0-51.0); HEMOGLOBIN 9.9 GM/DL (13.0-17.0); LYMPH % 25.5 % (9.0-44.0); LYMPHOCYTE # 5.3 TH/MM3 (1.0-4.8); MEAN CELL VOLUME 89.5 FL (80.0-100.0); MEAN CORPUSCULAR HEMOGLOBIN 31.5 PG (27.0-34.0); MEAN CORPUSCULAR HGB CONC 35.2 % (32.0-36.0); MEAN PLATELET VOLUME 8.8 FL (7.0-11.0); MONO % 8.9 % (0.0-8.0); MONOCYTE # 1.8 TH/MM3 (0-0.9); NEUT % 64.6 % (16.0-70.0); PLATELET COUNT 198 TH/MM3 (150-450); RED BLOOD COUNT 3.16 MIL/MM3 (4.50-5.90); RED CELL DISTRIBUTION WIDTH 21.5 % (11.6-17.2); WHITE BLOOD COUNT 20.6 TH/MM3 (4.0-11.0)
[2017-06-10 13:50] LABS: BANDS 1 % (0-6); CORRECTED NUCLEATED RBC 23 /100 WBC (0-0); CORRECTED WBC 16.7 TH/MM3 (4.0-11.0); LYMPHOCYTES 26 % (9-44); MONOCYTES 11 % (0-8); NEUTROPHIL # MANUAL DIFF 10.5 TH/MM3 (1.8-7.7); NUCLEATED RED BLOOD CELL 23 (0-0); POLYS (SEG NEUTROPHILS) 62 % (16-70)
[2017-06-10 13:51] LABS: KERATOCYTES OCC (NORMAL); OVALOCYTES 2+ (NORMAL); SICKLE CELLS 2+ (NORMAL)
[2017-06-10] MEDS ORDERED: MORPHINE SULFATE 2 MG/ML INJ IV PUSH PRN (15:00)
[2017-06-10] MEDS: MORPHINE SULFATE 2 MG/ML INJ IV PUSH PRN ×2 (15:05→20:07)
[2017-06-10 16:00] VITALS: BP 100/56; PULSE 100; RESP 18; TEMP 99.9; O2SAT 98
[2017-06-10 20:00] VITALS: BP 108/77; PULSE 107; RESP 17; TEMP 100.6; O2SAT 97
[2017-06-10] MEDS: ACETAMINOPHEN 325 MG TAB PO PRN (20:07)
[2017-06-10] MEDS: guaiFENesin E.R. 600 MG TAB PO SCH (20:07)
[2017-06-10] MEDS: ONDANSETRON HCL 4 MG/2 ML VIAL IV PUSH PRN (20:09)
[2017-06-11] VITALS (18 sets, daily range): BP systolic 95–115; BP diastolic 57–79; PULSE 77–106; RESP 15–20; TEMP 95.6–100.9; O2SAT 93–100
[2017-06-11] MEDS: KETOROLAC TROMETHAMINE 30 MG/ML (IVP) VIAL IV PUSH SCH ×5 (00:28→23:59)
[2017-06-11] MEDS: MORPHINE SULFATE 2 MG/ML INJ IV PUSH PRN ×5 (00:30→21:25)
[2017-06-11] MEDS: ONDANSETRON HCL 4 MG/2 ML VIAL IV PUSH PRN ×2 (04:29→13:58)
[2017-06-11 06:05] LABS: HEMATOCRIT 22.7 % (39.0-51.0); HEMOGLOBIN 7.9 GM/DL (13.0-17.0); MEAN CELL VOLUME 88.1 FL (80.0-100.0); MEAN CORPUSCULAR HEMOGLOBIN 30.6 PG (27.0-34.0); MEAN CORPUSCULAR HGB CONC 34.8 % (32.0-36.0); MEAN PLATELET VOLUME 8.1 FL (7.0-11.0); PLATELET COUNT 172 TH/MM3 (150-450); RED BLOOD COUNT 2.58 MIL/MM3 (4.50-5.90); RED CELL DISTRIBUTION WIDTH 20.8 % (11.6-17.2); WHITE BLOOD COUNT 22.2 TH/MM3 (4.0-11.0)
[2017-06-11 06:10] LABS: CHLORIDE 106 MEQ/L (98-107); SODIUM (NA) 135 MEQ/L (136-145)
[2017-06-11 06:13] LABS: ALBUMIN 3.2 GM/DL (3.4-5.0); BICARBONATE 23.6 MEQ/L (21.0-32.0); CALCIUM 7.5 MG/DL (8.5-10.1); GLUCOSE,RANDOM 78 MG/DL (74-106)
[2017-06-11 06:14] LABS: BLOOD UREA NITROGEN 9 MG/DL (7-18)
[2017-06-11 06:16] LABS: ALT (GPT) 24 U/L (12-78); AST (GOT) 139 U/L (15-37)
[2017-06-11 06:17] LABS: CREATININE 0.75 MG/DL (0.60-1.30); GLOMERULAR FILTRATION RATE 144 ML/MIN (>89)
[2017-06-11 06:18] LABS: TOTAL BILIRUBIN ADULT 7.2 MG/DL (0.2-1.0); TOTAL PROTEIN 7.1 GM/DL (6.4-8.2)
[2017-06-11 06:19] LABS: ALKALINE PHOSPHATASE 116 U/L (45-117)
[2017-06-11 06:38] LABS: BANDS 2 % (0-6); BASOPHILS 1 % (0-2); CORRECTED NUCLEATED RBC 36 /100 WBC (0-0); CORRECTED WBC 16.3 TH/MM3 (4.0-11.0); LYMPHOCYTES 15 % (9-44); MONOCYTES 3 % (0-8); NEUTROPHIL # MANUAL DIFF 13.2 TH/MM3 (1.8-7.7); NUCLEATED RED BLOOD CELL 36 (0-0); POLYS (SEG NEUTROPHILS) 79 % (16-70); TARGET CELLS 1+ (NORMAL)
[2017-06-11 06:39] LABS: OVALOCYTES 1+ (NORMAL); SICKLE CELLS 3+ (NORMAL)
[2017-06-11] MEDS: ENOXAPARIN SODIUM 40 MG/0.4 ML SYRINGE SQ SCH (08:00)
[2017-06-11] MEDS: guaiFENesin E.R. 600 MG TAB PO SCH ×2 (08:31→21:18)
[2017-06-11] MEDS: SODIUM CHLORIDE 0.9% FLUSH 10 ML FLUSH IV FLUSH SCH ×2 (08:32→21:15)
[2017-06-11] MEDS: SODIUM CHLOR 0.9% 1000 ML INJ 1,000 ML IV SCH ×3 (09:30→23:11)
[2017-06-11] MEDS: ACETAMINOPHEN 325 MG TAB PO PRN (09:57)
[2017-06-11] MEDS ORDERED: INFLUENZA VIRUS VACCINE (QUADRIVALENT) 0.5 ML SYR IM ONE (10:00)
--- NOTE | 2017-06-11 12:24 | HHI.PR ---
Subjective Remarks Patient seen today in follow-up for sickle cell crisis. MAXIMUM TEMPERATURE 100.6, hemoglobin 7.9. Patient says she feels a bit better after IV hydration and blood products given. Group A strep negative Objective Vitals Vital Signs Date Time Temp Pulse Resp B/P (MAP) Pulse Ox O2 Delivery O2 Flow Rate FiO2 06/11/17 11:56 95.6 80 18 97/64 100 06/11/17 11:11 96.6 83 18 95/64 99 06/11/17 10:57 17 06/11/17 10:42 97.5 101 18 102/71 99 06/11/17 10:16 100.4 93 17 101/70 98 06/11/17 10:03 99.9 96 17 99/71 95 06/11/17 09:50 100.9 105 17 106/72 06/11/17 09:39 17 06/11/17 09:30 94 Nasal Cannula 2.00 06/11/17 08:00 98.1 86 15 115/69 (84) 95 06/11/17 04:00 99.2 98 17 110/75 (87) 96 06/11/17 00:00 99.5 99 18 112/79 (90) 95 06/10/17 23:47 Nasal Cannula 2.00 06/10/17 20:00 100.6 107 17 108/77 (87) 97 06/10/17 16:00 99.9 100 18 100/56 (71) 98 I/O 06/10/17 06/10/17 06/10/17 06/11/17 06/11/17 06/11/17 07:00 15:00 23:00 07:00 15:00 23:00 Intake Total 980 ml Output Total 900 ml 400 ml Balance 980 ml -900 ml -400 ml Intake IV Total 980 ml Output Urine Total 900 ml 400 ml Result Diagram: 06/11/17 0554 06/11/17 0554 Imaging Last Impressions Chest X-Ray 06/10/17 0000 Signed Impressions: Service Date/Time: Saturday, June 10, 2017 12:05 - CONCLUSION: No acute cardiopulmonary disease identified. Camilo Espinoza MD Objective Remarks GENERAL: This is a frail male soft spoken with wide set eyes CARDIOVASCULAR: Regular rate and rhythm without murmurs, gallops, or rubs. RESPIRATORY: Left chest port, Clear to auscultation. Breath sounds equal bilaterally. No wheezes, rales, or rhonchi. GASTROINTESTINAL: Abdomen soft, non-tender, nondistended. Normal active bowel sounds MUSCULOSKELETAL: Extremities without clubbing, cyanosis, or edema. NEURO: Alert & Oriented x4 to person, place, time, situation. Moves all ext x4 A/P Problem List: (1) Sickle cell crisis ICD Code: D57.00 - Hb-SS disease with crisis, unspecified Status: Acute Plan: We'll continue IV hydration Doing better Status post transfusion (2) Atypical pneumonia ICD Code: J18.9 - Pneumonia, unspecified organism Status: Resolved Plan: The patient was quite of bit of phlegm and congestion in the chest Chest x-ray pending IV Levaquin sputum pending Discharge Planning 1-2 days pending progress Norah Rucker MD Jun 11, 2017 12:24
[2017-06-11] MEDS: LEVOFLOXACIN 500 MG PREMIX INJ 100 ML IV SCH (14:06)
[2017-06-11] MEDS ORDERED: PROMETHAZINE INJ 25 MG/ML VIAL IM PRN (23:45)
[2017-06-12] VITALS (9 sets, daily range): BP systolic 87–112; BP diastolic 56–77; PULSE 78–93; RESP 14–20; TEMP 97.8–101.6; O2SAT 87–100
[2017-06-12] MEDS: KETOROLAC TROMETHAMINE 30 MG/ML (IVP) VIAL IV PUSH SCH (05:15)
[2017-06-12] MEDS: SODIUM CHLOR 0.9% 1000 ML INJ 1,000 ML IV SCH ×3 (07:00→20:06)
[2017-06-12] MEDS: ENOXAPARIN SODIUM 40 MG/0.4 ML SYRINGE SQ SCH (08:00)
[2017-06-12] MEDS: SODIUM CHLORIDE 0.9% FLUSH 10 ML FLUSH IV FLUSH SCH ×2 (08:19→20:03)
[2017-06-12] MEDS: guaiFENesin E.R. 600 MG TAB PO SCH ×2 (08:50→20:02)
--- NOTE | 2017-06-12 11:05 | HHI.PR ---
Subjective Remarks patient seen in room in follow up for Sickle cell Crisis Fever 100.1 feels a bit better but still coughing up a lot of phlegm ISS use reinforced some hypotension today Objective Vitals Vital Signs Date Time Temp Pulse Resp B/P (MAP) Pulse Ox O2 Delivery O2 Flow Rate FiO2 06/12/17 08:00 98.1 78 17 94/70 (78) 100 06/12/17 07:52 98 Nasal Cannula 3.00 06/12/17 04:00 99.0 85 20 87/56 (66) 92 06/12/17 00:00 100.1 83 20 106/68 (81) 100 06/11/17 23:00 85 06/11/17 20:00 100.5 98 20 99/64 (76) 97 06/11/17 16:45 97.0 99 17 99/57 (71) 99 06/11/17 15:00 106 06/11/17 14:06 17 06/11/17 13:44 96.2 77 18 97/62 100 06/11/17 12:50 17 06/11/17 12:45 97.5 102 18 102/71 (81) 99 06/11/17 11:56 95.6 80 18 97/64 100 06/11/17 11:11 96.6 83 18 95/64 99 I/O 06/11/17 06/11/17 06/11/17 06/12/17 06/12/17 06/12/17 07:00 15:00 23:00 07:00 15:00 23:00 Intake Total 480 ml 1035 ml 1060 ml Output Total 900 ml 400 ml 775 ml 875 ml Balance -900 ml 80 ml 260 ml 185 ml Intake Oral 400 ml 60 ml IV Total 80 ml 635 ml 1000 ml Packed Cells 400 ml Output Urine Total 900 ml 400 ml 775 ml 875 ml # Voids 1 # Bowel Movements 0 0 Result Diagram: 06/11/17 0554 06/11/17 0554 Objective Remarks GENERAL: This is a frail male soft spoken with wide set eyes, coughing CARDIOVASCULAR: Regular rate and rhythm without murmurs, gallops, or rubs. RESPIRATORY: Left chest port, Clear to auscultation. Breath sounds equal bilaterally. No wheezes, rales, or rhonchi. GASTROINTESTINAL: Abdomen soft, non-tender, nondistended. Normal active bowel sounds MUSCULOSKELETAL: Extremities without clubbing, cyanosis, or edema. NEURO: Alert & Oriented x4 to person, place, time, situation. Moves all ext x4 A/P Problem List: (1) Sickle cell crisis ICD Code: D57.00 - Hb-SS disease with crisis, unspecified Status: Acute Plan: We'll continue IV hydration Doing better Status post transfusion, labs pending (2) Atypical pneumonia ICD Code: J18.9 - Pneumonia, unspecified organism Status: Resolved Plan: The patient was quite of bit of phlegm and congestion in the chest Chest x-ray pending IV Levaquin with severe sepsis (hypotension, leukocytosis,tachycardia, elevated transaminases/liver dysfunction) sputum with heave growth of normal ck, repeat pending Discharge Planning 2-3 days pending progress Norah Rucker MD Jun 12, 2017 11:05
[2017-06-12] MEDS ORDERED: PROCHLORPERAZINE MALEATE 10 MG TAB PO PRN (11:15)
[2017-06-12] MEDS: LEVOFLOXACIN 500 MG PREMIX INJ 100 ML IV SCH (11:22)
[2017-06-12] MEDS: HYDROmorphone HCL PF 2 MG/ML VIAL IVS PRN ×2 (11:22→17:06)
[2017-06-12 12:03] LABS: HEMATOCRIT 25.5 % (39.0-51.0); HEMOGLOBIN 8.8 GM/DL (13.0-17.0); MEAN CELL VOLUME 85.5 FL (80.0-100.0); MEAN CORPUSCULAR HEMOGLOBIN 29.6 PG (27.0-34.0); MEAN CORPUSCULAR HGB CONC 34.7 % (32.0-36.0); MEAN PLATELET VOLUME 8.8 FL (7.0-11.0); PLATELET COUNT 222 TH/MM3 (150-450); RED BLOOD COUNT 2.98 MIL/MM3 (4.50-5.90); RED CELL DISTRIBUTION WIDTH 19.4 % (11.6-17.2); WHITE BLOOD COUNT 21.5 TH/MM3 (4.0-11.0)
[2017-06-12 12:08] LABS: CHLORIDE 103 MEQ/L (98-107); SODIUM (NA) 136 MEQ/L (136-145)
[2017-06-12 12:11] LABS: BICARBONATE 24.4 MEQ/L (21.0-32.0); CALCIUM 7.7 MG/DL (8.5-10.1); GLUCOSE,RANDOM 72 MG/DL (74-106)
[2017-06-12 12:12] LABS: BLOOD UREA NITROGEN 6 MG/DL (7-18)
[2017-06-12 12:14] LABS: ALT (GPT) 24 U/L (12-78)
[2017-06-12 12:15] LABS: AST (GOT) 116 U/L (15-37); GLOMERULAR FILTRATION RATE 187 ML/MIN (>89)
[2017-06-12 12:23] LABS: BANDS 15 % (0-6); CORRECTED NUCLEATED RBC 49 /100 WBC (0-0); CORRECTED WBC 14.4 TH/MM3 (4.0-11.0); LYMPHOCYTES 28 % (9-44); MONOCYTES 13 % (0-8); NEUTROPHIL # MANUAL DIFF 8.5 TH/MM3 (1.8-7.7); NUCLEATED RED BLOOD CELL 49 (0-0); POLYS (SEG NEUTROPHILS) 44 % (16-70)
[2017-06-12 12:25] LABS: OVALOCYTES 1+ (NORMAL); ROULEAUX PRESENT (NORMAL); SICKLE CELLS 3+ (NORMAL)
[2017-06-12 13:02] LABS: ALKALINE PHOSPHATASE 107 U/L (45-117)
[2017-06-12 13:32] LABS: RETIC # 48.1 MIL/L (20.0-150.0); RETIC % 1.7 % (0.4-3.0)
[2017-06-12] MEDS ORDERED: PROMETHAZINE INJ 25 MG/ML VIAL IV-CENTRAL PRN (18:15)
--- NOTE | 2017-06-12 19:37 | MB ---
cc: MARY RUCKER MD, RUBY ANNE E. M.D. DATE OF CONSULTATION 06/12/17 [address] Mary Rucker CHIEF COMPLAINT Dr. Rucker requests a consultation for Mr. Alicia regarding sickle-cell disease and vasoocclusive pain crises associated with fever. HISTORY OF PRESENT ILLNESS Mr. Alicia is a 32-year-old man well-known patient from prior admission in consultation back February. He is a well-known patient to my partner, Dr. Morris and Dr. Toussaint, who saw him last in the hospital. He has known sickle-cell disease and frequent vasoocclusive pain crises. He was seen in the emergency room in [place] and was subsequently admitted to [facility] with fever associated with sickle-cell vasoocclusive pain crises. His temperature was 101.9 on presentation. T-max today was 101.6. His cultures are still negative. His hemoglobin has gradually decreased. His target transfusion hemoglobin is less than seven. He had been transfused a unit of packed red cells when his hemoglobin was 7.9. He has mild improvement in his symptoms but has remained febrile despite antibiotic therapy and support. Hematology/Oncology is consulted. Mr. Alicia admits to poor compliance with his hydroxyurea. He is not on any medication for iron overload. His bilirubin was significantly elevated on presentation and appears to be trending down. His renal function has improved. His platelet count is normal. White blood cell count remains elevated, predominantly neutrophils. There are sickle cells and nucleated red blood cells that may artifactually increase the white blood cell count. He denies any precipitating event. He does have sick contact in daughter that was brought [facility] the [facility] recently. He was coughing. He denies any sputum production. He denies any urinary complaints. He has had no history of deep vein thromboses. He has pain associated with the injections for DVT prophylaxis. He wishes them to be administered somewhere other than his abdomen. He denies any bleeding. No headache. No vision changes. Denies any pain in between his crises episodes. He takes an occasional tramadol or Percocet in between crises episodes. 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 The rest of his review of systems is negative. PAST MEDICAL HISTORY 1. Sickle-cell disease, 2. Chronic anemia 3. Fevers, 4. 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 PAST SURGICAL HISTORY 1. Port placement, 2. Cholecystectomy, 3. Knee surgery. ALLERGIES NO KNOWN DRUG ALLERGIES. FAMILY HISTORY Sickle-cell disease. SOCIAL HISTORY He is , works in [place]. Denies any tobacco, alcohol or illicit drug use. MEDICATIONS Current, 1. Hydromorphone 2. Phenergan 3. Colace. 4. Compazine 5. Mobile 6. Mucinex 7. Levaquin 8. Enoxaparin 9. Ondansetron PHYSICAL EXAMINATION VITAL SIGNS: Temperature 97.8, T-max 101.6, heart rate 84, respiratory rate 14, blood pressure 112/71, saturation 100%. GENERAL: Mr. Alicia is a well-developed slender man who looks his stated age. He looks tired. HEENT: His pupils are round, reactive to light and accommodation. Sclerae are icteric. Oropharynx is clear. NECK: Supple. LUNGS: Clear. CARDIOVASCULAR: Normal rate, rhythm. ABDOMEN: Flat and benign. LOWER EXTREMITIES: With thin lower extremity scar from left knee surgery. No edema. NEUROLOGIC: Nonfocal. LABORATORY DATA As described above. ASSESSMENT/PLAN Mr. Alicia is a 32-year-old man with history of sickle-cell disease and frequent vasoocclusive pain crises and chronic anemia. He is admitted for acute vasoocclusive pain crises associated with fever. He has been on antibiotic therapy. His fever persists. His cultures have been negative so far. In light of the sick contacts, suspect this may be a viral illness given the negative cultures and apparent no response to the antibiotic therapy. He has no other localizing symptoms other than a cough. I recommend continued support and hydration. His oxygen is given. His pain medication is optimized to Dilaudid 2 mg q.3 h in the next 12 hours. We will see if this controls his pain better. He has nausea and has not felt like eating until this evening. Antiemetic therapy with Phenergan will be ordered IV in the next 24 hours to assist in his nausea symptoms. We will see if he can tolerate p.o. well and gradually switch him over to oral hydration. He is encouraged to work with his oncologist to avoid admission to the hospital and ER visits. He will be seen by Dr. Morris tomorrow in follow up. No additional transfusions needed at present. His chest x-ray on admission shows no acute pulmonary disease. However, if his fever persists and respiratory symptoms of cough persists, repeat chest x-ray will be coordinated. His bilirubin is trending down suggesting recovery. We will continue to monitor his bilirubin and LDH. MD DAVID Morales/ /6:17 PM /7:03 PM
[2017-06-12] MEDS: DOCUSATE SODIUM 100 MG CAP PO SCH ×2 (20:02→20:09)
[2017-06-12] MEDS: HYDROmorphone HCL PF 2 MG/ML VIAL IV PUSH SCH ×2 (20:03→22:52)
[2017-06-12] MEDS: ACETAMINOPHEN 325 MG TAB PO PRN (20:03)
[2017-06-13] VITALS: BP 90/58; PULSE 94; RESP 20; TEMP 97.8; O2SAT 96
[2017-06-13] MEDS: HYDROmorphone HCL PF 2 MG/ML VIAL IV PUSH SCH ×2 (02:23→05:43)
[2017-06-13] MEDS: SODIUM CHLOR 0.9% 1000 ML INJ 1,000 ML IV SCH ×3 (05:43→23:15)
[2017-06-13 06:29] LABS: CHLORIDE 105 MEQ/L (98-107); HEMOGLOBIN 8.6 GM/DL (13.0-17.0); MEAN CELL VOLUME 87.1 FL (80.0-100.0); MEAN CORPUSCULAR HGB CONC 35.6 % (32.0-36.0); MEAN PLATELET VOLUME 8.6 FL (7.0-11.0); PLATELET COUNT 216 TH/MM3 (150-450); RED BLOOD COUNT 2.76 MIL/MM3 (4.50-5.90); SODIUM (NA) 139 MEQ/L (136-145); WHITE BLOOD COUNT 20.8 TH/MM3 (4.0-11.0)
[2017-06-13 06:36] LABS: CALCIUM 7.9 MG/DL (8.5-10.1)
[2017-06-13 06:37] LABS: BLOOD UREA NITROGEN 6 MG/DL (7-18); GLUCOSE,RANDOM 66 MG/DL (74-106)
[2017-06-13 06:39] LABS: ALT (GPT) 20 U/L (12-78); AST (GOT) 101 U/L (15-37); DIRECT BILIRUBIN ADULT 0.9 MG/DL (0.0-0.2)
[2017-06-13 06:40] LABS: CREATININE 0.49 MG/DL (0.60-1.30); GLOMERULAR FILTRATION RATE 236 ML/MIN (>89)
[2017-06-13 06:41] LABS: INDIRECT BILIRUBIN 2.6 MG/DL (0.0-0.8); TOTAL BILIRUBIN ADULT 3.5 MG/DL (0.2-1.0); TOTAL PROTEIN 7.2 GM/DL (6.4-8.2)
[2017-06-13 06:42] LABS: ALKALINE PHOSPHATASE 103 U/L (45-117)
[2017-06-13 08:00] VITALS: BP 101/61; PULSE 90; RESP 16; TEMP 100.2; O2SAT 91
[2017-06-13 08:00] LABS: BANDS 1 % (0-6); CORRECTED NUCLEATED RBC 83 /100 WBC (0-0); CORRECTED WBC 11.4 TH/MM3 (4.0-11.0); LYMPHOCYTES 29 % (9-44); MONOCYTES 17 % (0-8); NEUTROPHIL # MANUAL DIFF 6.2 TH/MM3 (1.8-7.7); NUCLEATED RED BLOOD CELL 83 (0-0); POLYS (SEG NEUTROPHILS) 53 % (16-70)
[2017-06-13 08:01] LABS: TARGET CELLS 1+ (NORMAL)
[2017-06-13 08:02] LABS: KERATOCYTES OCC (NORMAL); OVALOCYTES 2+ (NORMAL); SICKLE CELLS 3+ (NORMAL)
[2017-06-13] MEDS: DOCUSATE SODIUM 100 MG CAP PO SCH ×2 (08:25→22:00)
[2017-06-13] MEDS: guaiFENesin E.R. 600 MG TAB PO SCH ×2 (08:25→22:03)
[2017-06-13] MEDS: SODIUM CHLORIDE 0.9% FLUSH 10 ML FLUSH IV FLUSH SCH ×2 (08:26→22:00)
[2017-06-13] MEDS: ENOXAPARIN SODIUM 40 MG/0.4 ML SYRINGE SQ SCH (08:26)
[2017-06-13] MEDS: ACETAMINOPHEN 325 MG TAB PO PRN (08:31)
[2017-06-13] MEDS: PROMETHAZINE INJ 25 MG/ML VIAL IM PRN (09:00)
[2017-06-13 10:03] LABS: LDH SERUM 1188 U/L (87-241)
--- NOTE | 2017-06-13 10:48 | HHI.PR ---
Subjective Remarks Patient seen and evaluated in follow-up for sickle cell crisis and likely viral syndrome. Continue to tolerate medical management Low-grade temperature Patient more alert this morning. Hypoxemic overnight after IV narcotics. Patient has improved leukocytosis Objective Vitals Vital Signs Date Time Temp Pulse Resp B/P (MAP) Pulse Ox O2 Delivery O2 Flow Rate FiO2 06/13/17 08:00 100.2 90 16 101/61 (74) 91 06/13/17 00:00 97.8 94 20 90/58 (69) 96 06/12/17 21:27 94 Nasal Cannula 4.00 06/12/17 21:23 87 Nasal Cannula 3.00 06/12/17 20:00 101.2 89 20 105/77 (86) 96 06/12/17 16:00 97.8 84 14 112/71 (85) 100 06/12/17 12:00 101.6 93 15 104/71 (82) 98 I/O 06/12/17 06/12/17 06/12/17 06/13/17 06/13/17 06/13/17 07:00 15:00 23:00 07:00 15:00 23:00 Intake Total 1060 ml 1545 ml Output Total 875 ml 600 ml Balance 185 ml 945 ml Intake Oral 60 ml 240 ml IV Total 1000 ml 1305 ml Output Urine Total 875 ml 600 ml # Voids 1 2 # Bowel Movements 0 0 Result Diagram: 06/13/17 0545 06/13/17 0545 Objective Remarks GENERAL: This is a frail male soft spoken with wide set eyes, coughing CARDIOVASCULAR: Regular rate and rhythm without murmurs, gallops, or rubs. RESPIRATORY: Left chest port, Clear to auscultation. Breath sounds equal bilaterally. No wheezes, rales, or rhonchi. GASTROINTESTINAL: Abdomen soft, non-tender, nondistended. Normal active bowel sounds MUSCULOSKELETAL: Extremities without clubbing, cyanosis, or edema. NEURO: Alert & Oriented x4 to person, place, time, situation. Moves all ext x4 A/P Problem List: (1) Sickle cell crisis ICD Code: D57.00 - Hb-SS disease with crisis, unspecified Status: Acute Plan: We'll continue IV hydration Doing better Status post transfusion, labs pending hematology consult appreciated We'll add oral Dilaudid due to increased hypoxemia and lethargy on IV Dilaudid (2) Atypical pneumonia ICD Code: J18.9 - Pneumonia, unspecified organism Status: Resolved Plan: The patient was quite of bit of phlegm and congestion in the chest Chest x-ray pending IV Levaquin with severe sepsis (hypotension, leukocytosis,tachycardia, elevated transaminases/liver dysfunction) sputum with heavy growth of normal ck, repeat improved Discharge Planning 2-3 days pending progress Norah Rucker MD Jun 13, 2017 10:48
[2017-06-13] MEDS ORDERED: HYDROmorphone HCL PF 2 MG/ML VIAL IVS PRN (11:00)
[2017-06-13 12:00] VITALS: BP 97/58; PULSE 74; RESP 16; TEMP 98; O2SAT 99
[2017-06-13] MEDS: LEVOFLOXACIN 500 MG PREMIX INJ 100 ML IV SCH (12:16)
[2017-06-13 16:00] VITALS: BP 103/70; PULSE 77; RESP 16; TEMP 99.3; O2SAT 94
[2017-06-13] MEDS: HYDROmorphone HCL 2 MG TAB PO PRN ×2 (18:21→22:04)
[2017-06-13 20:00] VITALS: BP 104/66; PULSE 73; RESP 18; TEMP 98.7; O2SAT 100
[2017-06-13 20:50] VITALS: O2SAT 100
[2017-06-14] VITALS: BP 94/62; PULSE 74; RESP 20; TEMP 98.4; O2SAT 98
[2017-06-14] MEDS: HYDROmorphone HCL 2 MG TAB PO PRN ×4 (01:56→18:42)
[2017-06-14] MEDS: PROMETHAZINE INJ 25 MG/ML VIAL IM PRN ×3 (02:06→21:52)
[2017-06-14] MEDS: BENZOCAINE-MENTHOL (SUGAR FREE) 15 MG-3.6 MG LOZENGE BUCCAL ONE ×2 (02:15→14:43)
[2017-06-14] MEDS: SODIUM CHLOR 0.9% 1000 ML INJ 1,000 ML IV SCH ×3 (06:02→21:52)
[2017-06-14 08:00] VITALS: BP 103/71; PULSE 68; RESP 14; TEMP 98.1; O2SAT 99
[2017-06-14] MEDS: ENOXAPARIN SODIUM 40 MG/0.4 ML SYRINGE SQ SCH (08:00)
[2017-06-14] MEDS: SODIUM CHLORIDE 0.9% FLUSH 10 ML FLUSH IV FLUSH SCH ×2 (09:00→21:40)
[2017-06-14] MEDS: DOCUSATE SODIUM 100 MG CAP PO SCH ×2 (09:00→21:40)
[2017-06-14] MEDS: guaiFENesin E.R. 600 MG TAB PO SCH ×2 (09:51→21:40)
[2017-06-14 10:07] LABS: HEMATOCRIT 22.5 % (39.0-51.0); HEMOGLOBIN 7.8 GM/DL (13.0-17.0); MEAN CELL VOLUME 87.8 FL (80.0-100.0); MEAN CORPUSCULAR HEMOGLOBIN 30.3 PG (27.0-34.0); MEAN CORPUSCULAR HGB CONC 34.5 % (32.0-36.0); MEAN PLATELET VOLUME 8.3 FL (7.0-11.0); PLATELET COUNT 209 TH/MM3 (150-450); RED BLOOD COUNT 2.57 MIL/MM3 (4.50-5.90); RED CELL DISTRIBUTION WIDTH 19.6 % (11.6-17.2); WHITE BLOOD COUNT 19.8 TH/MM3 (4.0-11.0)
[2017-06-14 10:16] LABS: BICARBONATE 29.1 MEQ/L (21.0-32.0); CALCIUM 7.8 MG/DL (8.5-10.1)
[2017-06-14 10:20] LABS: CREATININE 0.38 MG/DL (0.60-1.30)
[2017-06-14 11:17] LABS: CORRECTED NUCLEATED RBC 193 /100 WBC (0-0); CORRECTED WBC 6.8 TH/MM3 (4.0-11.0); KERATOCYTES 1+ (NORMAL); LYMPHOCYTES 35 % (9-44); MONOCYTES 24 % (0-8); NEUTROPHIL # MANUAL DIFF 2.6 TH/MM3 (1.8-7.7); NUCLEATED RED BLOOD CELL 193 (0-0); OVALOCYTES 2+ (NORMAL); POLYS (SEG NEUTROPHILS) 38 % (16-70); SICKLE CELLS 2+ (NORMAL); TARGET CELLS 2+ (NORMAL)
--- NOTE | 2017-06-14 11:35 | HHI.PR ---
Subjective Remarks Patient seen and evaluated today in follow-up for sickle cell disease with crisis. Patient with extreme somnolence while on Dilaudid. I did discuss this with the patient. No further fevers. White cell count improved Objective Vitals Vital Signs Date Time Temp Pulse Resp B/P (MAP) Pulse Ox O2 Delivery O2 Flow Rate FiO2 06/14/17 08:00 98.1 68 14 103/71 (82) 99 06/14/17 00:00 98.4 74 20 94/62 (73) 98 06/13/17 20:50 100 Nasal Cannula 4.00 06/13/17 20:00 98.7 73 18 104/66 (79) 100 06/13/17 16:00 99.3 77 16 103/70 (81) 94 06/13/17 12:00 98.0 74 16 97/58 (71) 99 I/O 06/13/17 06/13/17 06/13/17 06/14/17 06/14/17 06/14/17 07:00 15:00 23:00 07:00 15:00 23:00 Intake Total 1545 ml 750 ml 1788 ml Output Total 600 ml 1050 ml 475 ml 950 ml Balance 945 ml -300 ml -475 ml 838 ml Intake Oral 240 ml 750 ml IV Total 1305 ml 1788 ml Output Urine Total 600 ml 1050 ml 475 ml 950 ml # Voids 2 2 # Bowel Movements 0 0 0 Result Diagram: 06/14/17 0950 06/14/17 0950 Objective Remarks GENERAL: This is a frail male soft spoken with wide set eyes, coughing CARDIOVASCULAR: Regular rate and rhythm without murmurs, gallops, or rubs. RESPIRATORY: Left chest port, Clear to auscultation. Breath sounds equal bilaterally. No wheezes, rales, or rhonchi. GASTROINTESTINAL: Abdomen soft, non-tender, nondistended. Normal active bowel sounds MUSCULOSKELETAL: Extremities without clubbing, cyanosis, or edema. NEURO: Alert & Oriented x4 to person, place, time, situation. Moves all ext x4 A/P Problem List: (1) Sickle cell crisis ICD Code: D57.00 - Hb-SS disease with crisis, unspecified Status: Acute Plan: We'll continue IV hydration Doing better Status post transfusion, labs pending hematology consult appreciated We'll wean oral Dilaudid (2) Atypical pneumonia ICD Code: J18.9 - Pneumonia, unspecified organism Status: Resolved Plan: The patient was quite of bit of phlegm and congestion in the chest Chest x-ray pending By mouth Levaquin with resolving severe sepsis (hypotension, leukocytosis,tachycardia, elevated transaminases/liver dysfunction) sputum with heavy growth of normal ck, repeat improved Discharge Planning 2-3 days pending progress Norah Rucker MD Jun 14, 2017 11:35
[2017-06-14 12:00] VITALS: BP 95/64; PULSE 64; RESP 12; TEMP 98.5; O2SAT 98
[2017-06-14] MEDS: LEVOFLOXACIN 500 MG PREMIX INJ 100 ML IV SCH (12:08)
[2017-06-14 16:00] VITALS: BP 97/55; PULSE 82; RESP 14; TEMP 99.2; O2SAT 96
[2017-06-14 20:00] VITALS: BP 102/59; PULSE 83; RESP 16; TEMP 99.3; O2SAT 92
[2017-06-14] MEDS ORDERED: BENZOCAINE-MENTHOL (SUGAR FREE) 15 MG-3.6 MG LOZENGE BUCCAL PRN (20:00)
[2017-06-14] MEDS: ACETAMINOPHEN/HYDROcodone 325 MG/10 MG TAB PO PRN (21:45)
[2017-06-15] VITALS (7 sets, daily range): BP systolic 93–114; BP diastolic 50–79; PULSE 51–78; RESP 12–20; TEMP 97.6–98.6; O2SAT 93–98
[2017-06-15] MEDS: SODIUM CHLOR 0.9% 1000 ML INJ 1,000 ML IV SCH ×3 (01:00→15:39)
[2017-06-15] MEDS: HYDROmorphone HCL 2 MG TAB PO PRN ×3 (01:56→22:22)
[2017-06-15] MEDS: ACETAMINOPHEN/HYDROcodone 325 MG/10 MG TAB PO PRN (05:16)
[2017-06-15] MEDS: ENOXAPARIN SODIUM 40 MG/0.4 ML SYRINGE SQ SCH ×2 (08:00→08:17)
[2017-06-15] MEDS: guaiFENesin E.R. 600 MG TAB PO SCH ×2 (08:17→22:21)
[2017-06-15] MEDS: DOCUSATE SODIUM 100 MG CAP PO SCH ×3 (08:17→22:22)
[2017-06-15] MEDS: SODIUM CHLORIDE 0.9% FLUSH 10 ML FLUSH IV FLUSH SCH ×2 (08:18→22:22)
[2017-06-15] MEDS: LEVOFLOXACIN 500 MG TAB PO SCH (11:54)
--- NOTE | 2017-06-15 12:07 | HHI.PR ---
Subjective Remarks Patient seen and evaluated in follow-up for sickle cell crisis which is improved. No further fevers. Patient planning of abdominal pain today. He has requested more IV narcotics. Objective Vitals Vital Signs Date Time Temp Pulse Resp B/P (MAP) Pulse Ox O2 Delivery O2 Flow Rate FiO2 06/15/17 08:00 98.4 51 12 98/69 (79) 98 06/15/17 06:15 93 06/15/17 00:00 97.6 75 16 93/50 (64) 93 06/14/17 20:00 99.3 83 16 102/59 (73) 92 06/14/17 16:00 99.2 82 14 97/55 (69) 96 I/O 06/14/17 06/14/17 06/14/17 06/15/17 06/15/17 06/15/17 07:00 15:00 23:00 07:00 15:00 23:00 Intake Total 1788 ml 1100 ml 1394 ml 1635 ml Output Total 950 ml 1550 ml 1250 ml Balance 838 ml 1100 ml -156 ml 385 ml Intake Oral 720 ml 480 ml IV Total 1788 ml 1100 ml 674 ml 1155 ml Output Urine Total 950 ml 1550 ml 1250 ml # Voids 2 # Bowel Movements 0 0 0 Result Diagram: 06/14/17 0950 06/14/17 0950 Objective Remarks GENERAL: This is a frail male soft spoken with wide set eyes, sleepy but easily aroused CARDIOVASCULAR: Regular rate and rhythm without murmurs, gallops, or rubs. RESPIRATORY: Left chest port, Clear to auscultation. Breath sounds equal bilaterally. No wheezes, rales, or rhonchi. GASTROINTESTINAL: Abdomen soft, non-tender, nondistended. Normal active bowel sounds MUSCULOSKELETAL: Extremities without clubbing, cyanosis, or edema. NEURO: Alert & Oriented x4 to person, place, time, situation. Moves all ext x4 A/P Problem List: (1) Sickle cell crisis ICD Code: D57.00 - Hb-SS disease with crisis, unspecified Status: Acute Plan: Improving We'll continue IV hydration Doing better Status post transfusion, hemoglobin stable, oral Dilaudid without escalation (2) Atypical pneumonia ICD Code: J18.9 - Pneumonia, unspecified organism Status: Resolved Plan: The patient was quite of bit of phlegm and congestion in the chest Continue oral Levaquin Sepsis resolved Discharge Planning Discharge in Norah Morales MD Jun 15, 2017 12:07
[2017-06-15] MEDS: POLYETHYLENE GLYCOL 17 GM PKG PO SCH (12:15)
[2017-06-15] MEDS: LACTULOSE SYRUP 20 GM/30 ML CUP PO SCH ×3 (13:00→22:22)
[2017-06-15] MEDS: PROMETHAZINE INJ 25 MG/ML VIAL IM PRN ×2 (13:53→22:21)
--- NOTE | 2017-06-15 14:18 | PD.ONC.PN ---
Subjective Subjective Remarks Patient seen and examined, vital signs, labs, medications and imaging studies reviewed. Transfusion history reviewed as well for this hospitalization. Subjectively; patient reports his major complaint is that of cough with associated pleuritic chest pain and nausea. He tells me the sickle cell related pain involving his back and hips and knees has improved significantly. Objective Data Date Time Temp Pulse Resp B/P (MAP) Pulse Ox O2 Delivery O2 Flow Rate FiO2 06/15/17 12:00 97.8 73 16 93/60 (71) 97 06/15/17 08:00 98.4 51 12 98/69 (79) 98 06/15/17 06:15 93 06/15/17 00:00 97.6 75 16 93/50 (64) 93 06/14/17 20:00 99.3 83 16 102/59 (73) 92 06/14/17 16:00 99.2 82 14 97/55 (69) 96 06/15/17 06/15/17 06/15/17 07:00 15:00 23:00 Intake Total 1635 ml 300 ml Output Total 1250 ml Balance 385 ml 300 ml Result Diagram: 06/14/17 0950 06/14/17 0950 Culture Results Microbiology Date/Time Source Procedure Growth Status 06/12/17 14:50 Sputum Expectorated Sputum Gram Stain - Final Complete 06/12/17 14:50 Sputum Expectorated Sputum Sputum Culture - Final HEAVY GROWTH NORMAL RESPIRATORY LATESHA Complete Administered Medications Medications (Trade) Dose Ordered Sig/Thomas Route PRN Reason Start Time Stop Time Status Last Admin Dose Admin Sodium Chloride 1,000 ml @ 125 mls/hr Q8H IV 06/10/17 07:00 06/15/17 06:19 Sodium Chloride (NS Flush) 2 ml UNSCH PRN IV FLUSH FLUSH AFTER USING IV ACCESS 06/10/17 04:45 06/13/17 05:43 Sodium Chloride (NS Flush) 2 ml BID IV FLUSH 06/10/17 09:00 06/15/17 08:18 Ondansetron HCl (Zofran Inj) 4 mg Q6H PRN IV PUSH NAUSEA 06/10/17 04:45 06/11/17 13:58 Acetaminophen (Tylenol) 650 mg Q4H PRN PO FEVER 06/10/17 04:45 06/13/17 08:31 Enoxaparin Sodium (Lovenox Inj) 40 mg Q24H SQ 06/10/17 08:00 06/13/17 08:26 Guaifenesin (Mucinex Er) 600 mg BID PO 06/10/17 21:00 06/15/17 08:17 Acetaminophen/ Hydrocodone Bitart (Fertile 10-325 Mg) 1 tab Q4H PRN PO pain less than 7 06/12/17 11:00 06/15/17 05:16 Promethazine HCl (Phenergan Inj) 12.5 mg Q6H PRN IM nausea 06/13/17 09:00 06/15/17 13:53 Hydromorphone HCl (Dilaudid) 1 mg Q6H PRN PO pain 7-10 06/14/17 10:30 06/15/17 08:17 Levofloxacin (Levaquin) 500 mg DAILY@1100 PO 06/15/17 11:00 06/15/17 11:54 Objective Remarks GENERAL: Young male, sitting up in bed, texting on his phone. Coughs frequently appears to be no acute distress. He looks tired. HEENT: His pupils are round, reactive to light and accommodation. Sclerae are icteric. Oropharynx is clear. NECK: Supple. LUNGS: Decreased bibasilar breath sounds, worse on the right side as opposed to the left. No wheezing or rales. CARDIOVASCULAR: Normal rate, rhythm. ABDOMEN: Thin, soft, nontender no organ enlargement noted. LOWER EXTREMITIES: No pretibial edema tenderness. Most physically to: Adequate muscle mass, tone and strength. NEUROLOGIC: Nonfocal. 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 He has been on disease modifying therapy with hydroxyurea but he does admit less than full compliance with the recommended dosing schedule. He presents to the hospital with symptoms of vaso-occlusive pain crisis, nausea and now with progressive cough with scant phlegm production. He was treated with 1 unit packed red blood cell transfusion earlier this hospitalization and remains on intravenous opioid analgesics. He is on IV fluid hydration and empiric antibiotic therapy with levofloxacin. Plan 1. Uncomplicated sickle cell in crisis: Continue hydration, oxygen supplementation and analgesics. 2. Cough: Suspect tracheobronchitis, continue levofloxacin. 3. I have encouraged him to use his incentive spirometer. 4. He is on Lovenox 40 mg subcutaneous daily for DVT prophylaxis. Continue ongoing supportive care. Discharge home when pain is controlled and when he no longer requires IV pain medications to control his sickle cell associated pain. Ross Toussaint MD Jun 15, 2017 14:18
--- NOTE | 2017-06-15 14:40 | RADRPT ---
EXAM DATE/TIME: 06/15/2017 13:32 [facility] COMPARISON: No previous studies available for comparison. INDICATIONS : Left side abdomen pain, vomiting. MEDICAL HISTORY : Sickle Cell disease. SURGICAL HISTORY : Cholecystectomy. ENCOUNTER: Subsequent ACUITY: 2 days PAIN SCORE: 8/10 LOCATION: Left abdomen FINDINGS: There is no evidence of pneumoperitoneum. Intestinal gas pattern is nonspecific and benign. There is no evidence of suspicious calcific density. Surgical clips present from previous cholecystectomy. Scl erotic changes in bone consistent with stated history of sickle cell disease. In the lung bases, card iomegaly, small effusions and course interstitial changes are noted CONCLUSION: Nonspecific abdomen appearance Hesham Calles MD on June 15, 2017 at 14:36 Board Certified Radiologist. This report was verified electronically.
[2017-06-16 01:00] VITALS: BP 112/74; PULSE 67; RESP 18; TEMP 96.8; O2SAT 97
[2017-06-16] MEDS: SODIUM CHLOR 0.9% 1000 ML INJ 1,000 ML IV SCH ×2 (01:00→15:00)
[2017-06-16] MEDS: PROMETHAZINE INJ 25 MG/ML VIAL IM PRN (06:16)
[2017-06-16] MEDS: HYDROmorphone HCL 2 MG TAB PO PRN (06:17)
[2017-06-16 08:00] VITALS: BP 106/74; PULSE 55; RESP 16; TEMP 98.3; O2SAT 100
[2017-06-16] MEDS: POLYETHYLENE GLYCOL 17 GM PKG PO SCH (09:00)
[2017-06-16] MEDS: DOCUSATE SODIUM 100 MG CAP PO SCH (09:47)
[2017-06-16] MEDS: ENOXAPARIN SODIUM 40 MG/0.4 ML SYRINGE SQ SCH (09:47)
[2017-06-16] MEDS: guaiFENesin E.R. 600 MG TAB PO SCH (09:47)
[2017-06-16] MEDS: LACTULOSE SYRUP 20 GM/30 ML CUP PO SCH ×3 (09:47→17:46)
[2017-06-16] MEDS: ACETAMINOPHEN/HYDROcodone 325 MG/10 MG TAB PO PRN ×2 (09:49→16:34)
[2017-06-16] MEDS: SODIUM CHLORIDE 0.9% FLUSH 10 ML FLUSH IV FLUSH SCH (09:50)
[2017-06-16] MEDS: LEVOFLOXACIN 500 MG TAB PO SCH (11:00)
[2017-06-16 12:57] VITALS: BP 122/77; PULSE 53; RESP 16; TEMP 97.6; O2SAT 100
--- NOTE | 2017-06-16 13:09 | HHI.DCPOC ---
Discharge Care Plan Diagnosis: (1) Atypical pneumonia (2) Sickle cell crisis Goals to Promote Your Health * To prevent worsening of your condition and complications * To maintain your health at the optimal level Directions to Meet Your Goals Take your medications as prescribed Follow your dietary instruction Follow activity as directed Keep your appointments as scheduled Take your immunizations and boosters as scheduled If your symptoms worsen call your PCP, if no PCP go to Urgent Care Center or Emergency Room Smoking is Dangerous to Your Health. Avoid second hand smoke Call the 24-hour hour crisis hotline for domestic abuse at Norah Rucker MD Jun 16, 2017 13:09
[2017-06-16] MEDS ORDERED: DILA2TAB4 PO (13:10)
--- NOTE | 2017-06-16 13:11 | HHI.DS ---
Discharge Summary Admission Date Jun 11, 2017 at 10:28 Discharge Date: Jun 16, 2017 Admitting Diagnosis (1) Sickle cell crisis ICD Code: D57.00 - Hb-SS disease with crisis, unspecified Status: Acute (2) Atypical pneumonia ICD Code: J18.9 - Pneumonia, unspecified organism Status: Resolved Procedures Blood transfusion Brief History - From Admission This patient is a 32-year-old gentleman with known history of sickle cell disease. He complains of cough and severe cognitive to induce vomiting. He has had some joint pain now. He has been unable to hold food down and says that his pain is only relieved in the past with IV Dilaudid. He has received IV morphine here with some relief. He has improved somewhat with IV hydration. There is been no fevers or chills are does have leukocytosis and appears quite dehydrated. Patient says his daughter was sick with an ear infection. There is been no fever however he has presented with leukocytosis and anemia. Recently he was in the hospital April for similar complaints. Patient's been recommend for observation hospital due to sickle cell disease and discomfort relating to that CBC/BMP: 06/14/17 0950 06/14/17 0950 Significant Findings Laboratory Tests Test 06/14/17 09:50 White Blood Count 19.8 TH/MM3 (4.0-11.0) Red Blood Count 2.57 MIL/MM3 (4.50-5.90) Hemoglobin 7.8 GM/DL (13.0-17.0) Hematocrit 22.5 % (39.0-51.0) Red Cell Distribution Width 19.6 % (11.6-17.2) Monocytes % 24 % (0-8) Nucleated Red Blood Cells 193 /100 WBC (0-0) Sickle Cells 2+ (NORMAL) Target Cells 2+ (NORMAL) Ovalocytes 2+ (NORMAL) Keratocytes 1+ (NORMAL) Blood Urea Nitrogen 2 MG/DL (7-18) Creatinine 0.38 MG/DL (0.60-1.30) Calcium Level 7.8 MG/DL (8.5-10.1) Imaging Last Impressions Abdomen X-Ray 06/15/17 0000 Signed Impressions: Service Date/Time: Thursday, June 15, 2017 13:32 - CONCLUSION: Nonspecific abdomen appearance Hesham Calles MD Chest X-Ray 06/10/17 0000 Signed Impressions: Service Date/Time: Saturday, June 10, 2017 12:05 - CONCLUSION: No acute cardiopulmonary disease identified. Camilo Espinoza MD PE at Discharge GENERAL: This is a frail male soft spoken with wide set eyes, sleepy but easily aroused CARDIOVASCULAR: Regular rate and rhythm without murmurs, gallops, or rubs. RESPIRATORY: Left chest port, Clear to auscultation. Breath sounds equal bilaterally. No wheezes, rales, or rhonchi. GASTROINTESTINAL: Abdomen soft, non-tender, nondistended. Normal active bowel sounds MUSCULOSKELETAL: Extremities without clubbing, cyanosis, or edema. NEURO: Alert & Oriented x4 to person, place, time, situation. Moves all ext x4 Pt update on day of discharge Patient doing better. Hemoglobin remained stable. He has completed his antibiotics. Discharge plans discussed with patient and he is agreeable Hospital Course This patient is a 32-year-old gentleman with known sickle cell disease. He did have sickle cell crisis which required blood transfusion as well as required treatment for atypical pneumonia. He did well and required several days of IV hydration and pain control. Overall he is discharged is his baseline and will continue to recover at home. Pt Condition on Discharge: Good Discharge Disposition: Discharge Home Discharge Time: <= 30 minutes Discharge Instructions DIET: Follow Instructions for: As Tolerated, No Restrictions Activities you can perform: Regular-No Restrictions New Medications: Hydromorphone (Dilaudid) 2 Mg Tab 1 MG PO Q6H PRN for pain 7-10, #10 TAB Continued Medications: Docusate Sodium (Dok) 100 Mg Cap 100 MG PO Q12HR for Bowel Management, #20 CAP Hydroxyurea (Hydrea) 500 Mg Cap 500 MG PO DAILY, #60 CAP 0 Refills Levofloxacin (Levofloxacin) 500 Mg Tablet 500 MG PO DAILY for Infection, #5 TAB 0 Refills Prochlorperazine Maleate (Prochlorperazine Maleate) 10 Mg Tab 10 MG PO Q6H PRN for NAUSEA OR VOMITING, #20 TAB 0 Refills Discontinued Medications: Oxycodone-Acetaminophen (Oxycodone-Acetaminophen) 10-325 mg Tab 1 TAB PO Q4H PRN for pain 6-10, #20 TAB Norah Rucker MD Jun 16, 2017 13:11
[2017-06-16 15:49] VITALS: O2SAT 98
[2017-06-16] MEDS ORDERED: SODIUM CHLORIDE 0.9% FLUSH 10 ML FLUSH IV FLUSH PRN (16:00)
[2017-06-16 17:43] VITALS: RESP 18
== END 2017-06-16 18:14 | disposition home or self-care (01) | DRG 871 ==
LOC: PHEDDLT 06:36 → PH3B 06:46 → OBSVTOIN 06-11 10:28
PROVIDERS: ADMIT Hospitalist; ATTEND Hospitalist
PROC: 30233N1 Transfusion of Nonautologous Red Blood Cells into Peripheral Vein, Percutaneous Approach (ICD-10-PCS; principal; 2017-06-11)
DX: A41.9 Sepsis, unspecified organism (principal); D57.00 Hb-SS disease with crisis, unspecified; J18.9 Pneumonia, unspecified organism; I95.9 Hypotension, unspecified; R65.20 Severe sepsis without septic shock; K76.89 Other specified diseases of liver; Z91.14 Patient's other noncompliance with medication regimen; Z96.653 Presence of artificial knee joint, bilateral
CPT/HCPCS: 36430; 71046; 74019; 80048; 80053; 80307; 81001; 82248; 83615; 85007; 85027; 85044; 85610; 85660; 85730; 86077; 86850; 86870; 86880; 86900; 86901; 86902; 86920; 86921; 86922; 87040; 87070; 87081; 87086; 87205; 87804; 87880; 90686; 94150; 96374; G0378; J1170; J1642; J1650; J1885; J1956; J2270; J2405; J2550; J7030; P9016; Q2038

== ENCOUNTER 2017-06-17 23:04 | Inpatient (IN) | payer BC, MEDICAID ==
[~2017-06-17 23:04] MED LIST changes: +DILA2TAB4 PO; -OXYC1TAB36 PO
[2017-06-18] VITALS (11 sets, daily range): BP systolic 97–110; BP diastolic 55–62; PULSE 51–83; RESP 14–18; TEMP 96.8–98.6; O2SAT 93–100
[2017-06-18] MEDS ORDERED: MAGNESIUM HYDROXIDE SUSP 30 ML CUP PO PRN
[2017-06-18] MEDS ORDERED: NALOXONE HCL 0.4 MG/ML AMP IV PUSH PRN
[2017-06-18] MEDS ORDERED: LACTULOSE SYRUP 20 GM/30 ML CUP PO PRN
[2017-06-18] MEDS ORDERED: SENNOSIDES 8.6 MG TAB PO PRN
[2017-06-18] MEDS ORDERED: BISACODYL 10 MG SUPP RECTAL PRN
[2017-06-18] MEDS ORDERED: ACETAMINOPHEN 325 MG TAB PO PRN
[2017-06-18] MEDS: SODIUM CHLORIDE 0.9% FLUSH 10 ML FLUSH IV FLUSH PRN ×3 (02:14→06:31)
[2017-06-18] MEDS: HYDROmorphone HCL PF 2 MG/ML VIAL IV PUSH PRN ×5 (02:14→21:12)
[2017-06-18] MEDS: ONDANSETRON HCL 4 MG/2 ML VIAL IVP PRN (03:23)
[2017-06-18] MEDS ORDERED: PROMETHAZINE HCL 25 MG TAB PO ONE (05:15)
[2017-06-18] MEDS: HEPARIN SODIUM - SQ 10,000 UNITS/ML VIAL SQ SCH ×3 (05:28→21:10)
[2017-06-18] MEDS: SODIUM CHLORIDE 0.9% FLUSH 10 ML FLUSH IV FLUSH SCH ×2 (08:10→21:11)
[2017-06-18] MEDS: DOCUSATE SODIUM 100 MG CAP PO SCH ×2 (08:10→21:00)
[2017-06-18] MEDS: HYDROXYUREA 500 MG CAP PO SCH (08:13)
[2017-06-18 08:36] LABS: CHLORIDE 105 MEQ/L (98-107); SODIUM (NA) 141 MEQ/L (136-145)
[2017-06-18 08:39] LABS: CALCIUM 8.2 MG/DL (8.5-10.1)
[2017-06-18 08:40] LABS: BICARBONATE 28.9 MEQ/L (21.0-32.0); BLOOD UREA NITROGEN 4 MG/DL (7-18); GLUCOSE,RANDOM 128 MG/DL (74-106)
[2017-06-18 08:43] LABS: CREATININE 0.56 MG/DL (0.60-1.30); GLOMERULAR FILTRATION RATE 202 ML/MIN (>89)
[2017-06-18 08:48] LABS: TROPONIN I LESS THAN 0.02 NG/ML (0.02-0.05)
[2017-06-18 09:26] LABS: WHITE BLOOD COUNT 16.7 TH/MM3 (4.0-11.0)
[2017-06-18 09:27] LABS: HEMATOCRIT 26.2 % (39.0-51.0); HEMOGLOBIN 8.3 GM/DL (13.0-17.0); MEAN CELL VOLUME 85.8 FL (80.0-100.0); RED BLOOD COUNT 3.05 MIL/MM3 (4.50-5.90)
[2017-06-18 09:28] LABS: MEAN CORPUSCULAR HEMOGLOBIN 27.1 PG (27.0-34.0); MEAN CORPUSCULAR HGB CONC 31.6 % (32.0-36.0); PLATELET COUNT 658 TH/MM3 (150-450); RED CELL DISTRIBUTION WIDTH 18.3 % (11.6-17.2)
[2017-06-18 09:29] LABS: MEAN PLATELET VOLUME 9.1 FL (7.0-11.0)
[2017-06-18 09:39] LABS: BANDS 1 % (0-6); CORRECTED NUCLEATED RBC 117 /100 WBC (0-0); CORRECTED WBC 7.7 TH/MM3 (4.0-11.0); LYMPHOCYTES 31 % (9-44); MONOCYTES 2 % (0-8); NEUTROPHIL # MANUAL DIFF 5.2 TH/MM3 (1.8-7.7); NUCLEATED RED BLOOD CELL 117 (0-0); POLYS (SEG NEUTROPHILS) 66 % (16-70)
[2017-06-18 09:42] LABS: OVALOCYTES 1+ (NORMAL); SICKLE CELLS 2+ (NORMAL); TARGET CELLS 2+ (NORMAL); TEARDROP RBCS 1+ (NORMAL)
[2017-06-18] MEDS ORDERED: IOHEXOL 350 MG/ML 10 ML VIAL (for RAD DIAG) IVCONTRAST ONE (10:22)
--- NOTE | 2017-06-18 10:37 | RADRPT ---
EXAM DATE/TIME: 06/18/2017 10:11 [facility] COMPARISON: CHEST SINGLE AP, June 17, 2017, 20:30. INDICATIONS : Chest pain since yesterday. Evaluate for pulmonary embolism. IV CONTRAST: 65 cc Omnipaque 350 (iohexol) IV RADIATION DOSE: 8.03 CTDIvol (mGy) MEDICAL HISTORY : Sickle cell disease. SURGICAL HISTORY : Cholecystectomy. Left port placement. ENCOUNTER: Initial ACUITY: 2 days PAIN SCALE: 4/10 LOCATION: Bilateral chest TECHNIQUE: Volumetric scanning of the chest was performed using a pulmonary embolism protocol MIP images were re constructed. Using automated exposure control and adjustment of the mA and/or kV according to patien t size, radiation dose was kept as low as reasonably achievable to obtain optimal diagnostic quality images. DICOM format image data is available electronically for review and comparison. Follow-up recommendations for detected pulmonary nodules are based at a minimum on nodule size and pa tient risk factors according to Fleischner Society Guidelines. FINDINGS: PULMONARY ARTERIES: No filling defects are seen in the pulmonary arteries through the segmental level. LUNGS: Focal peripheral airspace consolidation in the inferior right upper lobe adjacent the major fissure. Mild airspace disease at the lung bases bilaterally. PLEURAE: Small right pleural effusion. MEDIASTINUM: There is good visualization of the great vessels of the middle mediastinum. No evidence of mediastin al or hilar adenopathy/mass. MUSCULOSKELETAL: Within normal limits for patient age. MISCELLANEOUS: The visualized upper abdominal organs demonstrate no acute abnormality. CONCLUSION: 1. No CT evidence for pulmonary artery embolism. 2. Focal peripheral airspace consolidation in the inferior right upper lobe adjacent the major fissur e. Query acute chest syndrome in this patient with history of sickle cell? 3. Small right pleural effusion. 4. Minimal bibasilar lower lobe airspace disease, likely atelectasis. Dionisio Mallory MD on June 18, 2017 at 10:28 Board Certified Radiologist. This report was verified electronically.
--- NOTE | 2017-06-18 13:21 | HHI.HP ---
[facility] Service [facility] Primary Care Physician Non-Staff Admission Diagnosis Diagnoses: Chief Complaint: Joint pain, chest pain Travel History International Travel<30 Days: No Contact w/Intl Traveler <30 Da: No Traveled to Known Affected Are: No History of Present Illness 32-year-old male with past medical history of sickle cell anemia with multiple crises discharged from the hospital on Levaquin treated for bronchitis. Patient return to the emergency room now with complaints of chest pain and all joints hurting. Says shortness of breath improved and is not coughing much. Denies fever or chills no diaphoresis, nausea. No lightheadedness. He complains of headache on and off. No abdominal pain or diarrhea or constipation. No urinary complaints. Not eating much has less appetite. Review of Systems Except as stated in HPI: all other systems reviewed are Neg Past Family Social History Past Medical History Sickle cell anemia Past Surgical History No surgeries Reported Medications Last Impressions CT Angiography 06/18/17 0000 Signed Impressions: Service Date/Time: Sunday, June 18, 2017 10:11 - CONCLUSION: 1. No CT evidence for pulmonary artery embolism. 2. Focal peripheral airspace consolidation in the inferior right upper lobe adjacent the major fissure. Query acute chest syndrome in this patient with history of sickle cell? 3. Small right pleural effusion. 4. Minimal bibasilar lower lobe airspace disease, likely atelectasis. Dionisio Mallory MD Allergies: Coded Allergies: No Known Allergies (Unverified Allergy, Unknown, 06/17/17) Family History Parents are healthy, cousin with sickle cell anemia Social History Denies alcohol use or illicit drug use or tobacco use. Physical Exam Vital Signs Vital Signs Date Time Temp Pulse Resp B/P (MAP) Pulse Ox O2 Delivery O2 Flow Rate FiO2 06/18/17 08:00 96.8 64 17 104/62 (76) 93 06/18/17 07:55 100 Nasal Cannula 2.00 06/18/17 04:00 97.7 62 18 108/60 (76) 97 06/18/17 03:00 99 Nasal Cannula 2.00 06/18/17 01:30 81 06/18/17 01:00 98.6 75 16 110/62 (36) 97 Physical Exam GENERAL: This is a well-nourished, well-developed patient, in no apparent distress. SKIN: No rashes, ecchymoses or lesions. Cool and dry. HEAD: Atraumatic. Normocephalic. No temporal or scalp tenderness. EYES: Pupils equal round and reactive. Extraocular motions intact. No scleral icterus. No injection or drainage. ENT: Nose without bleeding, purulent drainage or septal hematoma. Throat without erythema, tonsillar hypertrophy or exudate. Uvula midline. Airway patent. NECK: Trachea midline. No JVD or lymphadenopathy. Supple, nontender, no meningeal signs. CARDIOVASCULAR: Regular rate and rhythm without murmurs, gallops, or rubs. RESPIRATORY: Clear to auscultation. Breath sounds equal bilaterally. No wheezes , rales, or rhonchi. GASTROINTESTINAL: Abdomen soft, non-tender, nondistended. No hepato-splenomegaly , or palpable masses. No guarding. MUSCULOSKELETAL: Extremities without clubbing, cyanosis, or edema. No joint tenderness, effusion, or edema noted. No calf tenderness. Negative Homans sign bilaterally. NEUROLOGICAL: Awake and alert. Cranial nerves II through XII intact. Motor and sensory grossly within normal limits. Five out of 5 muscle strength in all muscle groups. Normal speech. Laboratory Laboratory Tests Test 06/18/17 01:50 06/18/17 08:05 Total Creatine Kinase 90 75 White Blood Count 16.7 Corrected White Blood Count 7.7 Red Blood Count 3.05 Hemoglobin 8.3 Hematocrit 26.2 Mean Corpuscular Volume 85.8 Mean Corpuscular Hemoglobin 27.1 Mean Corpuscular Hemoglobin Concent 31.6 Red Cell Distribution Width 18.3 Platelet Count 658 Mean Platelet Volume 9.1 CBC Comment AUTO DIFF Differential Total Cells Counted 100 Neutrophils % (Manual) 66 Band Neutrophils % 1 Lymphocytes % 31 Monocytes % 2 Neutrophils # (Manual) 5.2 Nucleated Red Blood Cells 117 Differential Comment FINAL DIFF MANUAL Platelet Estimate HIGH Platelet Morphology Comment NORMAL Sickle Cells 2+ Target Cells 2+ Tear Drop Cells 1+ Ovalocytes 1+ Blood Urea Nitrogen 4 Creatinine 0.56 Random Glucose 128 Calcium Level 8.2 Sodium Level 141 Potassium Level 4.0 Chloride Level 105 Carbon Dioxide Level 28.9 Anion Gap 7 Estimat Glomerular Filtration Rate 202 Troponin I LESS THAN 0.02 Result Diagram: 06/18/17 0805 06/18/[address] Angiography 06/18/17 0000 Signed Impressions: Service Date/Time: Sunday, June 18, 2017 10:11 - CONCLUSION: 1. No CT evidence for pulmonary artery embolism. 2. Focal peripheral airspace consolidation in the inferior right upper lobe adjacent the major fissure. Query acute chest syndrome in this patient with history of sickle cell? 3. Small right pleural effusion. 4. Minimal bibasilar lower lobe airspace disease, likely atelectasis. MD Jonas Jennings VTE Risk Assessment [place] VTE Risk Assessment: No/Low Risk (score <= 1) Caprini Risk Assessment Model Point Value = 1 Point Value = 2 Point Value = 3 Point Value = 5 Age 41-60 Minor surgery BMI > 25 kg/m2 Swollen legs Varicose veins or History of unexplained or recurrent spontaneous Oral contraceptives or hormone replacement Sepsis (< 1 month) Serious lung disease, including pneumonia (< 1 month) Abnormal pulmonary function Acute myocardial infarction Congestive heart failure (< 1 month) History of inflammatory bowel disease Medical patient at bed rest Age 61-74 Arthroscopic surgery Major open surgery (> 45 min) Laparoscopic surgery (> 45 min) Malignancy Confined to bed (> 72 hours) Immobilizing plaster cast Central venous access Age >= 75 History of VTE Family history of VTE Factor V Leiden Prothrombin [id number] Lupus anticoagulant Anticardiolipin antibodies Elevated serum homocysteine Heparin-induced thrombocytopenia Other congenital or acquired thrombophilia Stroke (< 1 month) Elective arthroplasty Hip, pelvis, or leg fracture Acute spinal cord injury (< 1 month) Prophylaxis Regimen Total Risk Factor Score Risk Level Prophylaxis Regimen 0-1 Low Early ambulation 2 Moderate Order ONE of the following: *Sequential Compression Device (SCD) *Heparin 5000 units SQ BID 3-4 Higher Order ONE of the following medications: *Heparin 5000 units SQ TID *Enoxaparin/Lovenox 40 mg SQ daily (WT < 150 kg, CrCl > 30 mL/min) *Enoxaparin/Lovenox 30 mg SQ daily (WT < 150 kg, CrCl > 10-29 mL/min) *Enoxaparin/Lovenox 30 mg SQ BID (WT < 150 kg, CrCl > 30 mL/min) AND/OR *Sequential Compression Device (SCD) 5 or more Highest Order ONE of the following medications: *Heparin 5000 units SQ TID (Preferred with Epidurals) *Enoxaparin/Lovenox 40 mg SQ daily (WT < 150 kg, CrCl > 30 mL/min) *Enoxaparin/Lovenox 30 mg SQ daily (WT < 150 kg, CrCl > 10-29 mL/min) *Enoxaparin/Lovenox 30 mg SQ BID (WT < 150 kg, CrCl > 30 mL/min) AND *Sequential Compression Device (SCD) Assessment and Plan Assessment and Plan 32-year-old male with Sickle cell crisis Recently treated for pneumonia continue Levaquin Now with chest pain, joint pain Pain medications with IV Dilaudid taper as tolerated CTA chest reviewed no pulmonary embolism, patient with possible pneumonia, atelectasis. Incentive spirometry Monitor CBC, LDH, reticulocyte count Restart home medications as appropriate DVT prophylaxis SCD/teds Discussed Condition With Patient, nurse Physician Certification 2 Midnight Certification Type: Admission for Inpatient Services Order for Inpatient Services The services are ordered in accordance with Medicare regulations or non- Medicare payer requirements, as applicable. In the case of services not specified as inpatient-only, they are appropriately provided as inpatient services in accordance with the 2-midnight benchmark. Estimated LOS (days): 3 days is the estimated time the patient will need to remain in the hospital, assuming treatment plan goals are met and no additional complications. Post-Hospital Plan: Home Ivania Green MD Jun 18, 2017 13:21
[2017-06-18] MEDS ORDERED: PROCHLORPERAZINE MALEATE 10 MG TAB PO PRN (13:30)
[2017-06-18] MEDS ORDERED: FOLIC ACID 1 MG TAB PO ONE (14:00)
[2017-06-18] MEDS: LEVOFLOXACIN 750 MG PREMIX INJ 150 ML IV SCH (14:17)
[2017-06-18] MEDS: SODIUM CHLOR 0.9% 1000 ML INJ 1,000 ML IV SCH (14:18)
[2017-06-18] MEDS: PROMETHAZINE HCL 25 MG TAB PO PRN (17:27)
--- NOTE | 2017-06-18 19:58 | EKG ---
Date Performed: 06/18/2017 Time Performed: 03:08:59 PTAGE: 32 years EKG: SINUS BRADYCARDIA WITH SINUS ARRHYTHMIA LEFT VENTRICULAR HYPERTROPHY AND ST-T CHANGE Since previous tracing, no significant change noted ABNORMAL ECG NO PREVIOUS TRACING DOCTOR: Martha Loya Interpretating Date/Time 06/18/2017 19:58:12
--- NOTE | 2017-06-18 19:59 | EKG ---
Date Performed: 06/18/2017 Time Performed: 08:05:43 PTAGE: 32 years EKG: SINUS BRADYCARDIA NONSPECIFIC T-WAVE ABNORMALITY Compared to previous tracing, the LVH and ST segments have improved ABNORMAL ECG PREVIOUS TRACING : 06/18/2017 03.08 DOCTOR: Martha Loya Interpretating Date/Time 06/18/2017 19:58:35
[2017-06-19] VITALS (8 sets, daily range): BP systolic 93–138; BP diastolic 53–96; PULSE 62–97; RESP 16–20; TEMP 96.7–100.8; O2SAT 90–97
[2017-06-19] MEDS: HYDROmorphone HCL PF 2 MG/ML VIAL IV PUSH PRN ×3 (01:54→10:07)
[2017-06-19] MEDS: SODIUM CHLORIDE 0.9% FLUSH 10 ML FLUSH IV FLUSH PRN ×2 (01:55→06:21)
[2017-06-19] MEDS: PROMETHAZINE HCL 25 MG TAB PO PRN ×3 (01:56→21:53)
[2017-06-19] MEDS: SODIUM CHLOR 0.9% 1000 ML INJ 1,000 ML IV SCH ×2 (01:56→13:05)
[2017-06-19] MEDS: diphenhydrAMINE HCL 25 MG CAP PO PRN (03:05)
[2017-06-19 04:54] LABS: BASOPHIL # 0.7 TH/MM3 (0-0.2); EOSINOPHIL # 0.2 TH/MM3 (0-0.4); EOSINOPHIL % 0.9 % (0.0-4.0); HEMATOCRIT 24.3 % (39.0-51.0); LYMPH % 35.6 % (9.0-44.0); LYMPHOCYTE # 8.7 TH/MM3 (1.0-4.8); MEAN CELL VOLUME 87.1 FL (80.0-100.0); MEAN CORPUSCULAR HEMOGLOBIN 28.6 PG (27.0-34.0); MEAN CORPUSCULAR HGB CONC 32.8 % (32.0-36.0); MEAN PLATELET VOLUME 8.7 FL (7.0-11.0); MONO % 23.5 % (0.0-8.0); MONOCYTE # 5.7 TH/MM3 (0-0.9); PLATELET COUNT 635 TH/MM3 (150-450); RED BLOOD COUNT 2.79 MIL/MM3 (4.50-5.90); RED CELL DISTRIBUTION WIDTH 19.8 % (11.6-17.2); WHITE BLOOD COUNT 24.3 TH/MM3 (4.0-11.0)
[2017-06-19 05:05] LABS: CALCIUM 8.2 MG/DL (8.5-10.1)
[2017-06-19 05:06] LABS: BICARBONATE 31.8 MEQ/L (21.0-32.0)
[2017-06-19 05:09] LABS: CREATININE 0.58 MG/DL (0.60-1.30)
[2017-06-19] MEDS: HEPARIN SODIUM - SQ 10,000 UNITS/ML VIAL SQ SCH ×3 (06:21→21:53)
[2017-06-19 06:44] LABS: CORRECTED NUCLEATED RBC 72 /100 WBC (0-0); CORRECTED WBC 14.1 TH/MM3 (4.0-11.0); LYMPHOCYTES 34 % (9-44); MONOCYTES 20 % (0-8); NEUTROPHIL # MANUAL DIFF 6.3 TH/MM3 (1.8-7.7); NUCLEATED RED BLOOD CELL 72 (0-0); POLYS (SEG NEUTROPHILS) 45 % (16-70)
[2017-06-19 06:45] LABS: SICKLE CELLS 1+ (NORMAL); TARGET CELLS 1+ (NORMAL)
[2017-06-19 08:10] LABS: RETIC # 180.5 MIL/L (20.0-150.0); RETIC % 6.6 % (0.4-3.0)
[2017-06-19] MEDS: SODIUM CHLORIDE 0.9% FLUSH 10 ML FLUSH IV FLUSH SCH ×2 (09:10→21:53)
[2017-06-19] MEDS: FOLIC ACID 1 MG TAB PO SCH (09:10)
[2017-06-19] MEDS: DOCUSATE SODIUM 100 MG CAP PO SCH ×2 (09:19→21:00)
[2017-06-19] MEDS: HYDROXYUREA 500 MG CAP PO SCH (09:19)
[2017-06-19] MEDS: LEVOFLOXACIN 750 MG PREMIX INJ 150 ML IV SCH (13:00)
--- NOTE | 2017-06-19 13:25 | HHI.PR ---
Subjective Remarks Follow-up pneumonia and sickle cell crisis. Patient seen and examined, sitting outside of bed with complaints of generalized pain. Patient is pleasant awake and alert. States his pain has improved with the use of pain medicine and IV fluids. Eating well, with no abdominal pain, nausea or vomiting. Does ambulate. Vital signs are stable. Afebrile. Objective Vitals Vital Signs Date Time Temp Pulse Resp B/P (MAP) Pulse Ox O2 Delivery O2 Flow Rate FiO2 06/19/17 08:00 97.1 92 19 138/96 (110) 96 06/19/17 04:00 97.4 77 16 93/53 (66) 95 06/19/17 00:00 96.7 62 16 105/59 (74) 96 06/18/17 20:00 98 Nasal Cannula 2.00 06/18/17 20:00 51 06/18/17 20:00 97.2 59 14 97/56 (70) 98 06/18/17 16:00 97.2 62 17 101/55 (70) 98 06/18/17 15:01 83 I/O 06/18/17 06/18/17 06/18/17 06/19/17 06/19/17 06/19/17 07:00 15:00 23:00 07:00 15:00 23:00 Intake Total 600 ml 1334 ml Output Total 400 ml 400 ml 700 ml Balance 600 ml -400 ml -400 ml 634 ml Intake Oral 600 ml IV Total 1334 ml Output Urine Total 400 ml 400 ml 700 ml # Voids 6 1 # Bowel Movements 1 Result Diagram: 06/19/17 0425 06/19/17 [address] Angiography 06/18/17 0000 Signed Impressions: Service Date/Time: Sunday, June 18, 2017 10:11 - CONCLUSION: 1. No CT evidence for pulmonary artery embolism. 2. Focal peripheral airspace consolidation in the inferior right upper lobe adjacent the major fissure. Query acute chest syndrome in this patient with history of sickle cell? 3. Small right pleural effusion. 4. Minimal bibasilar lower lobe airspace disease, likely atelectasis. Dionisio Mallory MD Objective Remarks GENERAL: Well-nourished, well-developed patient in NAD. SKIN: Warm and dry. No rash. HEAD: Normocephalic. Atraumatic. EYES: Pupils equal and round. No scleral icterus. No injection or drainage. ENT: No nasal bleeding or discharge. Mucous membranes pink and moist. NECK: Supple. Trachea midline. CARDIOVASCULAR: Regular rate and rhythm. S1, S2 noted. No murmur appreciated. RESPIRATORY: No accessory muscle use. Clear to auscultation. Breath sounds equal bilaterally. GASTROINTESTINAL: Abdomen soft, non-tender, nondistended. Normoactive bowel sounds x4. MUSCULOSKELETAL: No obvious deformities. Extremities without clubbing, cyanosis , or edema. NEUROLOGICAL: Awake and alert. No obvious cranial nerve deficits. Motor grossly within normal limits. 5/5 muscle strength in bilateral upper and lower extremities. Normal speech. PSYCHIATRIC: Appropriate mood and affect; insight and judgment normal. A/P Assessment and Plan 32-year-old male with past medical history of sickle cell anemia with multiple crises discharged from the hospital on Levaquin treated for bronchitis. Sickle cell crisis Now with generalized joint pain Pain medications with IV Dilaudid taper as tolerated CTA chest reviewed no pulmonary embolism, patient with possible pneumonia, atelectasis. Monitor CBC, LDH, reticulocyte count. Repeat labs in am. Follow. EKG reviewed showing sinus bradycardia with no ST changes. Pneumonia, community-acquired failed treatment Recently treated for pneumonia, continue Levaquin Leukocytosis, white blood cell to 24.3. Afebrile. CTA showing focal peripheral airspace consolidation on the right upper lobe. Small right pleural effusion. Continue IV fluid Continue incentive spirometer Supplemental O2 as needed. Restart home medications as appropriate DVT prophylaxis SCD/teds. Heparin. Lisy Machado Jun 19, 2017 13:25
[2017-06-19] MEDS ORDERED: HYDROMORPHONE IV PRN ×2 (14:00→15:00)
[2017-06-19] MEDS ORDERED: SODIUM CHLORIDE 0.9% IV PRN ×2 (14:00→15:00)
[2017-06-19] MEDS: SODIUM CHLORIDE IV PRN ×2 (15:15→21:42)
[2017-06-19] MEDS: HYDROMORPHONE IV PRN ×2 (15:15→21:42)
[2017-06-19] MEDS ORDERED: HYDROmorphone HCL 2 MG TAB PO PRN (18:00)
[2017-06-19] MEDS ORDERED: SODIUM CHLORIDE 0.9% IV SCH (19:00)
[2017-06-19] MEDS ORDERED: HYDROMORPHONE IV SCH (19:00)
[2017-06-19] MEDS ORDERED: HYDROmorphone HCL PF 2 MG/ML VIAL IV PUSH PRN (20:45)
[2017-06-20] VITALS: BP 116/78; PULSE 87; RESP 20; TEMP 100.5; O2SAT 97
[2017-06-20] MEDS: SODIUM CHLORIDE 0.9% IV PRN ×3 (01:52→19:50)
[2017-06-20] MEDS: HYDROMORPHONE IV PRN ×3 (01:52→19:50)
[2017-06-20] MEDS: SODIUM CHLOR 0.9% 1000 ML INJ 1,000 ML IV SCH ×2 (01:57→13:47)
[2017-06-20 04:00] VITALS: BP 108/69; PULSE 80; RESP 18; TEMP 98.1; O2SAT 100
[2017-06-20] MEDS: PROMETHAZINE HCL 25 MG TAB PO PRN (05:06)
[2017-06-20] MEDS: SODIUM CHLORIDE 0.9% FLUSH 10 ML FLUSH IV FLUSH PRN ×2 (05:07→06:08)
[2017-06-20] MEDS: HEPARIN SODIUM - SQ 10,000 UNITS/ML VIAL SQ SCH ×3 (06:08→19:49)
[2017-06-20 07:03] LABS: HEMATOCRIT 25.3 % (39.0-51.0); HEMOGLOBIN 8.1 GM/DL (13.0-17.0); MEAN CELL VOLUME 88.9 FL (80.0-100.0); MEAN CORPUSCULAR HEMOGLOBIN 28.6 PG (27.0-34.0); MEAN CORPUSCULAR HGB CONC 32.2 % (32.0-36.0); MEAN PLATELET VOLUME 8.7 FL (7.0-11.0); PLATELET COUNT 787 TH/MM3 (150-450); RED BLOOD COUNT 2.85 MIL/MM3 (4.50-5.90); RED CELL DISTRIBUTION WIDTH 21.1 % (11.6-17.2); WHITE BLOOD COUNT 26.1 TH/MM3 (4.0-11.0)
[2017-06-20 07:10] LABS: BICARBONATE 29.4 MEQ/L (21.0-32.0); CALCIUM 7.7 MG/DL (8.5-10.1)
[2017-06-20 07:14] LABS: CREATININE 0.55 MG/DL (0.60-1.30)
[2017-06-20 07:43] LABS: CORRECTED NUCLEATED RBC 57 /100 WBC (0-0); CORRECTED WBC 16.6 TH/MM3 (4.0-11.0); LYMPHOCYTES 14 % (9-44); MONOCYTES 20 % (0-8); NEUTROPHIL # MANUAL DIFF 10.8 TH/MM3 (1.8-7.7); NUCLEATED RED BLOOD CELL 57 (0-0); POLYS (SEG NEUTROPHILS) 65 % (16-70); SICKLE CELLS 1+ (NORMAL); TARGET CELLS 2+ (NORMAL)
[2017-06-20 07:44] LABS: KERATOCYTES OCC (NORMAL); OVALOCYTES 2+ (NORMAL)
[2017-06-20 08:00] VITALS: BP 121/72; PULSE 79; RESP 20; TEMP 99.7; O2SAT 96; O2SAT 99
[2017-06-20] MEDS: SODIUM CHLORIDE 0.9% FLUSH 10 ML FLUSH IV FLUSH SCH ×2 (09:00→19:47)
[2017-06-20] MEDS: DOCUSATE SODIUM 100 MG CAP PO SCH ×2 (09:00→19:48)
[2017-06-20 09:49] LABS: RETIC # 198.3 MIL/L (20.0-150.0); RETIC % 8.2 % (0.4-3.0)
[2017-06-20] MEDS: FOLIC ACID 1 MG TAB PO SCH (09:56)
[2017-06-20] MEDS: HYDROXYUREA 500 MG CAP PO SCH (09:59)
[2017-06-20 12:00] VITALS: BP 123/75; PULSE 85; RESP 18; TEMP 100; O2SAT 96
[2017-06-20] MEDS ORDERED: HYDROmorphone HCL 2 MG TAB PO SCH (12:00)
[2017-06-20] MEDS: LEVOFLOXACIN 750 MG PREMIX INJ 150 ML IV SCH (13:48)
[2017-06-20] MEDS: oxyCODONE/ACETAMINOPHEN 10 MG/325 MG TAB PO PRN ×3 (13:48→22:24)
--- NOTE | 2017-06-20 13:58 | HHI.PR ---
Subjective Remarks Follow-up sickle cell crisis. Patient seen and examined, lying in bed in severe pain. Continued home medications overnight and IV Dilaudid. Does admit to some shortness of breath overnight, placed on 2 L nasal cannula, oxygen saturations 99%. TMAX overnight 100.8. Objective Vitals Vital Signs Date Time Temp Pulse Resp B/P (MAP) Pulse Ox O2 Delivery O2 Flow Rate FiO2 06/20/17 12:00 100.0 85 18 123/75 (91) 96 Automatic Cuff 06/20/17 08:00 99.7 79 20 121/72 (88) 99 06/20/17 08:00 79 06/20/17 04:00 98.1 80 18 108/69 (82) 100 06/20/17 00:00 100.5 87 20 116/78 (91) 97 06/19/17 20:00 97 06/19/17 20:00 100.8 89 20 124/75 (91) 96 06/19/17 20:00 92 Nasal Cannula 2.00 06/19/17 16:00 98.9 90 18 109/58 (75) 94 I/O 06/19/17 06/19/17 06/19/17 06/20/17 06/20/17 06/20/17 07:00 15:00 23:00 07:00 15:00 23:00 Intake Total 1334 ml 150 ml 210 ml 1982 ml Output Total 700 ml 550 ml 890 ml 1825 ml Balance 634 ml -400 ml -680 ml 157 ml Intake Oral 240 ml IV Total 1334 ml 150 ml 210 ml 1742 ml Output Urine Total 700 ml 550 ml 890 ml 1825 ml # Voids 1 2 4 # Bowel Movements 0 Result Diagram: 06/20/17 0515 06/20/17 [address] Angiography 06/18/17 0000 Signed Impressions: Service Date/Time: Sunday, June 18, 2017 10:11 - CONCLUSION: 1. No CT evidence for pulmonary artery embolism. 2. Focal peripheral airspace consolidation in the inferior right upper lobe adjacent the major fissure. Query acute chest syndrome in this patient with history of sickle cell? 3. Small right pleural effusion. 4. Minimal bibasilar lower lobe airspace disease, likely atelectasis. Dionisio Mallory MD Objective Remarks GENERAL: Well-nourished, well-developed patient in NAD. SKIN: Warm and dry. No rash. HEAD: Normocephalic. Atraumatic. EYES: Pupils equal and round. No scleral icterus. No injection or drainage. ENT: No nasal bleeding or discharge. Mucous membranes pink and moist. NECK: Supple. Trachea midline. CARDIOVASCULAR: Regular rate and rhythm. S1, S2 noted. No murmur appreciated. RESPIRATORY: No accessory muscle use. Clear to auscultation. Breath sounds equal bilaterally. GASTROINTESTINAL: Abdomen soft, non-tender, nondistended. Normoactive bowel sounds x4. MUSCULOSKELETAL: No obvious deformities. Extremities without clubbing, cyanosis , or edema. NEUROLOGICAL: Awake and alert. No obvious cranial nerve deficits. Motor grossly within normal limits. 5/5 muscle strength in bilateral upper and lower extremities. Normal speech. PSYCHIATRIC: Appropriate mood and affect; insight and judgment normal. A/P Assessment and Plan 32-year-old male with past medical history of sickle cell anemia with multiple crises discharged from the hospital on Levaquin treated for bronchitis. Sickle cell crisis Severe generalized joint pain Pain medications with IV Dilaudid and PO Percocet, takes at home. CTA chest reviewed no pulmonary embolism, patient with possible pneumonia, atelectasis. Monitor CBC, LDH, reticulocyte count. AM labs reviewed today, WBC trending up. Will consult hematology, appreciate recommendations and input. Pain is still severe. EKG reviewed showing sinus bradycardia with no ST changes. Pneumonia, community-acquired failed treatment Recently treated for pneumonia, continue Levaquin Leukocytosis, white blood cell to 24.3. TMAX 100.8 overnight. CTA showing focal peripheral airspace consolidation on the right upper lobe. Small right pleural effusion. Continue IV fluid Continue incentive spirometer Supplemental O2 as needed. Restart home medications as appropriate DVT prophylaxis SCD/teds. Heparin. Lisy Machado Jun 20, 2017 13:58
[2017-06-20] MEDS ORDERED: POTASSIUM CHLORIDE 10 MEQ CONTROLLED RELEASE TAB PO ONE (14:30)
[2017-06-20 16:00] VITALS: BP 114/72; PULSE 93; RESP 16; TEMP 98.4; O2SAT 96
[2017-06-20 19:00] LABS: BILIRUBIN, URINE NEG (NEG); BLOOD, URINE NEG (NEG); GLUCOSE,URINE NEG (NEG); KETONE, URINE NEG (NEG); NITRITE,URINE NEG (NEG); URINE LEUKOCYTE ESTERASE NEG (NEG)
[2017-06-20 19:30] LABS: URINE COLOR YELLOW (YELLW/STRAW)
[2017-06-20 19:31] LABS: SQUAMOUS EPITHELIAL CELL URINE 0-5 /hpf (0-5); WBC, URINE 0-2 /hpf (0-5)
[2017-06-20 20:00] VITALS: BP 115/76; PULSE 84; PULSE 85; RESP 20; TEMP 98.6; O2SAT 100
[2017-06-20] MEDS: diphenhydrAMINE HCL 25 MG CAP PO PRN (22:24)
[2017-06-21] VITALS (7 sets, daily range): BP systolic 106–118; BP diastolic 62–75; PULSE 81–96; RESP 18–20; TEMP 98.2–99.9; O2SAT 91–100
[2017-06-21] MEDS: HYDROMORPHONE IV PRN ×5 (00:22→20:07)
[2017-06-21] MEDS: SODIUM CHLORIDE 0.9% IV PRN ×5 (00:22→20:07)
[2017-06-21] MEDS: oxyCODONE/ACETAMINOPHEN 10 MG/325 MG TAB PO PRN ×5 (02:28→22:40)
[2017-06-21] MEDS: SODIUM CHLOR 0.9% 1000 ML INJ 1,000 ML IV SCH ×2 (04:21→13:45)
[2017-06-21] MEDS: diphenhydrAMINE HCL 25 MG CAP PO PRN (04:26)
[2017-06-21] MEDS: HEPARIN SODIUM - SQ 10,000 UNITS/ML VIAL SQ SCH ×3 (06:18→22:40)
[2017-06-21 06:32] LABS: HEMATOCRIT 23.9 % (39.0-51.0); HEMOGLOBIN 7.9 GM/DL (13.0-17.0); MEAN CORPUSCULAR HEMOGLOBIN 28.4 PG (27.0-34.0); MEAN PLATELET VOLUME 8.1 FL (7.0-11.0); PLATELET COUNT 898 TH/MM3 (150-450); RED BLOOD COUNT 2.78 MIL/MM3 (4.50-5.90); RED CELL DISTRIBUTION WIDTH 20.3 % (11.6-17.2); WHITE BLOOD COUNT 24.2 TH/MM3 (4.0-11.0)
[2017-06-21 06:45] LABS: BICARBONATE 28.5 MEQ/L (21.0-32.0); CALCIUM 8.2 MG/DL (8.5-10.1)
[2017-06-21 06:49] LABS: CREATININE 0.62 MG/DL (0.60-1.30)
[2017-06-21 07:55] LABS: BANDS 1 % (0-6); CORRECTED NUCLEATED RBC 69 /100 WBC (0-0); CORRECTED WBC 14.3 TH/MM3 (4.0-11.0); KERATOCYTES 1+ (NORMAL); LYMPHOCYTES 20 % (9-44); MONOCYTES 17 % (0-8); NEUTROPHIL # MANUAL DIFF 8.6 TH/MM3 (1.8-7.7); NUCLEATED RED BLOOD CELL 69 (0-0); POLYS (SEG NEUTROPHILS) 59 % (16-70); TARGET CELLS 2+ (NORMAL)
[2017-06-21 07:56] LABS: DOHLE BODIES PRESENT (NONE SEEN); OVALOCYTES 2+ (NORMAL); SICKLE CELLS 1+ (NORMAL)
[2017-06-21] MEDS: SODIUM CHLORIDE 0.9% FLUSH 10 ML FLUSH IV FLUSH SCH ×2 (09:00→20:05)
[2017-06-21] MEDS: FOLIC ACID 1 MG TAB PO SCH (09:33)
[2017-06-21] MEDS: HYDROXYUREA 500 MG CAP PO SCH (09:34)
[2017-06-21] MEDS: DOCUSATE SODIUM 100 MG CAP PO SCH ×2 (09:37→20:05)
--- NOTE | 2017-06-21 12:34 | HHI.PR ---
Subjective Remarks Follow-up sickle cell crisis. Patient seen and examined, lying in bed. States that he has continued pain has improved slightly. Has been out of bed to bathroom today. Has been eating well. Denies any abdominal pain nausea or vomiting. Vital signs are stable. Afebrile overnight. Awaiting blood cultures and sputum growth. Hematology consulted. Objective Vitals Vital Signs Date Time Temp Pulse Resp B/P (MAP) Pulse Ox O2 Delivery O2 Flow Rate FiO2 06/21/17 10:08 16 06/21/17 08:00 98.8 86 18 108/65 (79) 91 06/21/17 07:19 16 06/21/17 04:00 98.4 88 18 115/74 (88) 98 06/21/17 00:00 98.2 81 18 106/75 (85) 100 06/20/17 20:00 85 06/20/17 20:00 100 Nasal Cannula 2.00 06/20/17 20:00 98.6 84 20 115/76 (89) 100 06/20/17 16:00 98.4 93 16 114/72 (86) 96 I/O 06/20/17 06/20/17 06/20/17 06/21/17 06/21/17 06/21/17 07:00 15:00 23:00 07:00 15:00 23:00 Intake Total 1982 ml 1215 ml 1140.5 ml 1520 ml Output Total 1825 ml 1750 ml 1475 ml Balance 157 ml -535 ml 1140.5 ml 45 ml Intake Oral 240 ml 625 ml 600 ml IV Total 1742 ml 590 ml 1140.5 ml 920 ml Output Urine Total 1825 ml 1750 ml 1475 ml # Voids 4 4 # Bowel Movements 0 0 1 Result Diagram: 06/21/17 0615 06/21/17 [address] Angiography 06/18/17 0000 Signed Impressions: Service Date/Time: Sunday, June 18, 2017 10:11 - CONCLUSION: 1. No CT evidence for pulmonary artery embolism. 2. Focal peripheral airspace consolidation in the inferior right upper lobe adjacent the major fissure. Query acute chest syndrome in this patient with history of sickle cell? 3. Small right pleural effusion. 4. Minimal bibasilar lower lobe airspace disease, likely atelectasis. Dionisio Mallory MD Objective Remarks GENERAL: Well-nourished, well-developed patient with complaints of generalized pain SKIN: Warm and dry. No rash. HEAD: Normocephalic. Atraumatic. EYES: Pupils equal and round. No scleral icterus. No injection or drainage. ENT: No nasal bleeding or discharge. Mucous membranes pink and moist. NECK: Supple. Trachea midline. CARDIOVASCULAR: Regular rate and rhythm. S1, S2 noted. No murmur appreciated. RESPIRATORY: No accessory muscle use. Clear to auscultation. Breath sounds equal bilaterally. GASTROINTESTINAL: Abdomen soft, non-tender, nondistended. Normoactive bowel sounds x4. MUSCULOSKELETAL: No obvious deformities. Extremities without clubbing, cyanosis , or edema. NEUROLOGICAL: Awake and alert. No obvious cranial nerve deficits. Motor grossly within normal limits. 5/5 muscle strength in bilateral upper and lower extremities. Normal speech. PSYCHIATRIC: Appropriate mood and affect; insight and judgment normal. A/P Assessment and Plan 32-year-old male with past medical history of sickle cell anemia with multiple crises discharged from the hospital on Levaquin treated for bronchitis. Sickle cell crisis Severe generalized joint pain Pain medications with IV Dilaudid and PO Percocet, takes at home. CTA chest reviewed no pulmonary embolism, patient with possible pneumonia, atelectasis. Monitor CBC, LDH, reticulocyte count. BMP normal today Consult placed to hematology, appreciate recommendations and input. Pain is still severe has improved slightly. EKG reviewed showing sinus bradycardia with no ST changes. Pneumonia, community-acquired failed treatment Recently treated for pneumonia, continue Levaquin Afebrile overnight CTA showing focal peripheral airspace consolidation on the right upper lobe. Small right pleural effusion. Continue IV fluid Continue incentive spirometer Supplemental O2 as needed. Restart home medications as appropriate DVT prophylaxis SCD/teds. Heparin. Lisy Machado Jun 21, 2017 12:34
--- NOTE | 2017-06-21 13:21 | MB ---
cc: BEATRIS CABALLERO DATE OF CONSULTATION: 06/20/2017 REASON FOR CONSULTATION Patient with sickle-cell crisis. HISTORY OF PRESENT ILLNESS This is a 32-year-old male who has a history of sickle-cell disease who has inconsistent outpatient follow-up. 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 He was unable to have follow-up with him recently. He is noncompliant with Hydrea. He has had recurrent hospital admissions. He likely has underlying iron overload. I do not see any ferritin levels in the EMR. He has never been on iron chelation therapy. He now presents to the emergency room with complaints of chest pain and hurting all over. He has not had any fevers or chills. He does not have a sore throat. He denies having any dyspnea. On admission he had CT angiogram which did not show any pulmonary artery embolism. There was no evidence of any pneumonia; however, there was questionable airspace consolidation in the right upper lobe. The patient was admitted to the hospital. He is receiving IV Dilaudid every 4 hours for pain. He was started on Levaquin. Additionally, he is receiving Percocet 10/325 p.o. q.4h. p.r.n. pain. On admission his WBC was 16.7, hemoglobin 8.3 and platelet count 658,000. His total bilirubin on 06/17/2017 was 2.7. Liver functions were normal. His MCV is normocytic at 88.9 which indicates that he has been noncompliant with his Hydrea treatment. His oxygen saturations have been close to 100%. He is on 2 liters nasal cannula. He had a low-grade fever overnight. He states that he is still in pain. REVIEW OF SYSTEMS A comprehensive review of systems was completed which is negative except as described in the HPI. PAST MEDICAL HISTORY Sickle-cell disease. PAST SURGICAL HISTORY 1. Port placement. 2. Cholecystectomy. 3. Knee surgery. MEDICATIONS Medications were reviewed in the EMR. ALLERGIES He has no known drug allergies. FAMILY HISTORY Significant for sickle cell disease. SOCIAL HISTORY He does not smoke cigarettes. He does not drink alcohol. He is . He does not use illicit drugs. PHYSICAL EXAMINATION VITAL SIGNS: Vital signs were reviewed. O2 saturations are approximately 99% on 2 liters nasal cannula. GENERAL: A well-developed, well-nourished male in no apparent distress currently. However, he is covered up in a blanket and states that he is trying to sleep. HEENT: Pupils are equal, round and reactive to light. Extraocular movements intact. No thrush. No lesion. NECK: Supple. No JVD. No bruits. No lymphadenopathy. CHEST: Clear to auscultation bilaterally. CARDIAC: S1, S2, regular rate and rhythm. ABDOMEN: Soft, nontender, nondistended. Bowel sounds are present. EXTREMITIES: Without edema, erythema or cyanosis. SKIN: Without any petechiae, lesion or bruises. NEUROLOGIC: No focal deficits. PSYCHIATRIC: Mood and affect is appropriate. LABORATORY Labs were reviewed in the EMR. IMAGING Imaging studies were reviewed in the EMR. ASSESSMENT AND PLAN This is a 30-year-old male with a history of sickle-cell disease who presents to the emergency room with a veno-occlusive crisis. 1. Sickle cell crisis. He states that he has pain all over. His hemoglobin is in the 8 range. He is noncompliant with his Hydrea treatment. He is noncompliant with outpatient follow-up with his warehouse consultant. He states that he is having pain in his joints and hip area. The chest pain is better. Based on the imaging he does not appear to have an acute chest syndrome. His hemoglobin is higher than would be seen in an acute crisis. No blood transfusion is indicated at this time. Obtain chest x-ray in a.m. Encourage incentive spirometry. Will obtain a hemoglobin electrophoresis. Check daily LDH, reticulocyte and total bilirubin levels. His total bilirubin on 06/17/2017 was 2.7. I would recommend tapering off the IV pain meds when feasible and converting to oral pain meds. Continue IV antibiotics. Folic acid 1mg daily. Thank you for allowing me to participate in the care of this patient. The hematology team will continue to follow this patient along. MD DAVID Ponce/JEREMY /6:24 PM /1:15 PM YONIS
[2017-06-21] MEDS: LEVOFLOXACIN 750 MG PREMIX INJ 150 ML IV SCH (13:45)
[2017-06-22] VITALS (7 sets, daily range): BP systolic 95–129; BP diastolic 60–77; PULSE 76–105; RESP 14–20; TEMP 97.9–99.2; O2SAT 94–100
[2017-06-22] MEDS: HYDROMORPHONE IV PRN ×3 (00:14→20:55)
[2017-06-22] MEDS: SODIUM CHLORIDE 0.9% IV PRN ×3 (00:14→20:55)
[2017-06-22] MEDS: oxyCODONE/ACETAMINOPHEN 10 MG/325 MG TAB PO PRN ×4 (03:30→17:43)
[2017-06-22] MEDS: SODIUM CHLOR 0.9% 1000 ML INJ 1,000 ML IV SCH ×3 (05:05→22:04)
[2017-06-22] MEDS: HEPARIN SODIUM - SQ 10,000 UNITS/ML VIAL SQ SCH ×3 (05:36→20:25)
[2017-06-22 06:48] LABS: DIRECT BILIRUBIN ADULT 0.4 MG/DL (0.0-0.2)
[2017-06-22 06:51] LABS: INDIRECT BILIRUBIN 1.5 MG/DL (0.0-0.8); TOTAL BILIRUBIN ADULT 1.9 MG/DL (0.2-1.0)
[2017-06-22 09:53] LABS: RETIC # 210.2 MIL/L (20.0-150.0); RETIC % 7.9 % (0.4-3.0)
--- NOTE | 2017-06-22 10:09 | HHI.PR ---
Subjective Remarks Follow-up sickle cell crisis. Patient seen and examined, lying in bed with continued complaints of generalized pain. Has not been out of bed much. Hematology saw him last evening, appreciate input. Patient states cough has been improving. Eating well. Denies any developing, nausea or vomiting. Vital signs stable Objective Vitals Vital Signs Date Time Temp Pulse Resp B/P (MAP) Pulse Ox O2 Delivery O2 Flow Rate FiO2 06/22/17 09:05 97.9 76 18 100/60 (73) 100 06/22/17 04:00 99.0 83 18 120/75 (90) 99 06/22/17 00:00 98.8 103 20 114/77 (89) 100 06/21/17 20:00 99.2 95 20 112/67 (82) 99 06/21/17 20:00 100 Nasal Cannula 2.00 06/21/17 20:00 90 06/21/17 16:22 16 06/21/17 16:00 99.0 89 18 118/70 (86) 99 06/21/17 14:47 16 06/21/17 14:07 98 Nasal Cannula 2.00 06/21/17 12:00 99.9 96 18 113/62 (79) 97 I/O 06/21/17 06/21/17 06/21/17 06/22/17 06/22/17 06/22/17 07:00 15:00 23:00 07:00 15:00 23:00 Intake Total 1520 ml 1650.5 ml 959.5 ml 1080 ml Output Total 1475 ml 750 ml 1450 ml 1100 ml Balance 45 ml 900.5 ml -490.5 ml -20 ml Intake Oral 600 ml 550 ml 480 ml IV Total 920 ml 1100.5 ml 959.5 ml 600 ml Output Urine Total 1475 ml 750 ml 1450 ml 1100 ml # Voids 4 4 # Bowel Movements 1 0 0 Result Diagram: 06/21/17 0615 06/21/17 [address] Angiography 06/18/17 0000 Signed Impressions: Service Date/Time: Sunday, June 18, 2017 10:11 - CONCLUSION: 1. No CT evidence for pulmonary artery embolism. 2. Focal peripheral airspace consolidation in the inferior right upper lobe adjacent the major fissure. Query acute chest syndrome in this patient with history of sickle cell? 3. Small right pleural effusion. 4. Minimal bibasilar lower lobe airspace disease, likely atelectasis. Dionisio Mallory MD Objective Remarks GENERAL: Well-nourished, well-developed patient with complaints of generalized pain SKIN: Warm and dry. No rash. HEAD: Normocephalic. Atraumatic. EYES: Pupils equal and round. No scleral icterus. No injection or drainage. ENT: No nasal bleeding or discharge. Mucous membranes pink and moist. NECK: Supple. Trachea midline. CARDIOVASCULAR: Regular rate and rhythm. S1, S2 noted. No murmur appreciated. RESPIRATORY: No accessory muscle use. Clear to auscultation. Breath sounds equal bilaterally. GASTROINTESTINAL: Abdomen soft, non-tender, nondistended. Normoactive bowel sounds x4. MUSCULOSKELETAL: No obvious deformities. Extremities without clubbing, cyanosis , or edema. NEUROLOGICAL: Awake and alert. No obvious cranial nerve deficits. Motor grossly within normal limits. 5/5 muscle strength in bilateral upper and lower extremities. Normal speech. PSYCHIATRIC: Appropriate mood and affect; insight and judgment normal. A/P Assessment and Plan 32-year-old male with past medical history of sickle cell anemia with multiple crises discharged from the hospital on Levaquin treated for bronchitis. Sickle cell crisis Severe generalized joint pain. Pain medications with IV Dilaudid and PO Percocet, takes at home. Will attempt to taper. Will start on Relistor, monitor for constipation. Continue Hydrea. CTA chest reviewed no pulmonary embolism, patient with possible pneumonia, atelectasis. Monitor CBC, LDH, reticulocyte count. Consult placed to hematology, appreciate recommendations and input. Started on folic acid. Continue IV fluid. EKG reviewed showing sinus bradycardia with no ST changes. Pneumonia, community-acquired failed treatment Recently treated for pneumonia, continue Levaquin Afebrile overnight CTA showing focal peripheral airspace consolidation on the right upper lobe. Small right pleural effusion. Continue IV fluid Continue incentive spirometer Supplemental O2 as needed. Repeat chest x-ray now, follow. Restart home medications as appropriate DVT prophylaxis SCD/teds. Heparin. Lisy Machado Jun 22, 2017 10:09
[2017-06-22] MEDS: SODIUM CHLORIDE 0.9% FLUSH 10 ML FLUSH IV FLUSH SCH ×2 (10:11→20:25)
[2017-06-22] MEDS: DOCUSATE SODIUM 100 MG CAP PO SCH ×2 (10:11→20:24)
[2017-06-22] MEDS: FOLIC ACID 1 MG TAB PO SCH (10:11)
[2017-06-22] MEDS: HYDROXYUREA 500 MG CAP PO SCH (10:15)
--- NOTE | 2017-06-22 11:18 | RADRPT ---
EXAM DATE/TIME: 06/22/2017 10:56 [facility] COMPARISON: CHEST SINGLE AP, June 17, 2017, 20:30. INDICATIONS : Congestion, cough, chest pain. MEDICAL HISTORY : Sickle Cell disease. SURGICAL HISTORY : Cholecystectomy. left port placement ENCOUNTER: Subsequent ACUITY: 1 week PAIN SCORE: 4/10 LOCATION: Bilateral chest FINDINGS: A single portable frontal view the chest shows a worsening consolidation involving the right base. Sm all right effusion noted. Left lung is clear. A Port-A-Cath overlies the left chest. Heart is normal in size. Mild scoliotic curvature to the spine. CONCLUSION: Worsening consolidation of the right lower lobe with small right effusion. Al Zimmerman Jr., MD on June 22, 2017 at 11:15 Board Certified Radiologist. This report was verified electronically.
[2017-06-22] MEDS: METHYLNALTREXONE BROMIDE 12 MG/0.6 ML VIAL SQ SCH (12:00)
[2017-06-22] MEDS: LEVOFLOXACIN 750 MG PREMIX INJ 150 ML IV SCH (15:03)
[2017-06-22] MEDS: ONDANSETRON HCL 4 MG/2 ML VIAL IVP PRN (15:29)
[2017-06-22] MEDS: diphenhydrAMINE HCL 25 MG CAP PO PRN (17:43)
[2017-06-22] MEDS: PROMETHAZINE HCL 25 MG TAB PO PRN (17:46)
--- NOTE | 2017-06-22 18:53 | PD.ONC.PN ---
Subjective Subjective Remarks Patient seen and examined, vital signs, labs and medications reviewed. Imaging studies reviewed specifically CT angiogram performed earlier this hospitalization. Subjectively; patient reports pain in his chest and difficulty breathing. He is asking for additional pain medications to control the pain. He tells me he is not able to eat because of nausea and vomiting. He also reports sweating and feeling warm. Objective Data Date Time Temp Pulse Resp B/P (MAP) Pulse Ox O2 Delivery O2 Flow Rate FiO2 06/22/17 17:41 14 06/22/17 17:25 99.0 91 14 95/61 (72) 100 06/22/17 14:02 99.2 105 18 129/72 (91) 94 06/22/17 12:08 Nasal Cannula 2.00 06/22/17 09:05 97.9 76 18 100/60 (73) 100 06/22/17 04:00 99.0 83 18 120/75 (90) 99 06/22/17 00:00 98.8 103 20 114/77 (89) 100 06/21/17 20:00 99.2 95 20 112/67 (82) 99 06/21/17 20:00 100 Nasal Cannula 2.00 06/21/17 20:00 90 06/22/17 06/22/17 06/22/17 07:00 15:00 23:00 Intake Total 1080 ml 740 ml 1000 ml Output Total 1100 ml 800 ml Balance -20 ml -60 ml 1000 ml Result Diagram: 06/21/17 0615 06/21/17 0615 Laboratory Results Laboratory Tests Test 06/22/17 05:40 Reticulocyte Count 7.9 % Absolute Reticulocyte Count 210.2 MIL/L Total Bilirubin 1.9 MG/DL Direct Bilirubin 0.4 MG/DL Indirect Bilirubin 1.5 MG/DL Lactate Dehydrogenase 369 U/L Culture Results Microbiology Date/Time Source Procedure Growth Status 06/20/17 15:34 Blood Peripheral Aerobic Blood Culture - Preliminary NO GROWTH IN 2 DAYS Resulted 06/20/17 15:34 Blood Peripheral Anaerobic Blood Culture - Preliminary NO GROWTH IN 2 DAYS Resulted 06/20/17 15:34 Blood Peripheral Aerobic Blood Culture - Preliminary NO GROWTH IN 2 DAYS Resulted 06/20/17 15:34 Blood Peripheral Anaerobic Blood Culture - Preliminary NO GROWTH IN 2 DAYS Resulted 06/20/17 15:45 Sputum Expectorated Sputum Gram Stain - Final Complete 06/20/17 15:45 Sputum Expectorated Sputum Sputum Culture - Final HEAVY GROWTH NORMAL RESPIRATORY LATESHA Complete Imaging Studies Last 24 hours Impressions Chest X-Ray 06/22/17 0000 Signed Impressions: Service Date/Time: Thursday, June 22, 2017 10:56 - CONCLUSION: Worsening consolidation of the right lower lobe with small right effusion. Al Zimmerman Jr., MD Administered Medications Medications (Trade) Dose Ordered Sig/Thomas Route PRN Reason Start Time Stop Time Status Last Admin Dose Admin Sodium Chloride (NS Flush) 2 ml UNSCH PRN IV FLUSH FLUSH AFTER USING IV ACCESS 06/18/17 00:00 06/20/17 06:08 Sodium Chloride (NS Flush) 2 ml BID IV FLUSH 06/18/17 09:00 06/22/17 10:11 Acetaminophen (Tylenol) 650 mg Q4H PRN PO TEMP > 100.4 06/18/17 00:00 06/20/17 00:10 Ondansetron HCl (Zofran Inj) 4 mg Q6H PRN IVP NAUSEA/VOMITING IF NO P.O. 06/18/17 00:00 06/22/17 15:29 Heparin Sodium (Porcine) (Heparin Inj) 5,000 units Q8HR SQ 06/18/17 06:00 06/22/17 15:03 Docusate Sodium (Colace) 100 mg Q12HR PO 06/18/17 09:00 06/22/17 10:11 Hydroxyurea (Hydrea) 500 mg DAILY PO 06/18/17 09:00 06/22/17 10:15 Levofloxacin/ Dextrose 150 ml @ 100 mls/hr Q24H IV 06/18/17 14:00 06/22/17 15:03 Promethazine HCl (Phenergan) 25 mg Q6H PRN PO MODERATE nausea/vomiting 06/18/17 13:30 06/22/17 17:46 Folic Acid (Folate) 1 mg DAILY PO 06/19/17 09:00 06/22/17 10:11 Sodium Chloride 1,000 ml @ 84 mls/hr [id number] IV 06/18/17 14:15 06/22/17 05:05 Diphenhydramine HCl (Benadryl) 25 mg Q4H PRN PO pruritis 06/19/17 02:45 06/22/17 17:43 Oxycodone/ Acetaminophen (Percocet 10-325 Mg) 1 tab Q4H PRN PO pain scale 6-10 06/20/17 12:15 06/22/17 17:43 Objective Remarks GENERAL: Young male, laying in bed, eyes closed, he mumbles to speak. His is at bedside. HEENT: Pupils are equal, round and reactive to light. Extraocular movements intact. No thrush. No lesion. Conjunctivae are pale and sclerae are anicteric. NECK: Supple. No JVD. No bruits. No lymphadenopathy. CHEST: Poor inspiratory effort, decreased bibasilar breath sounds with inspiratory crepitus. Some tenderness along the lateral aspect of the ribs. CARDIAC: S1, S2, regular rate and rhythm. ABDOMEN: Soft, nontender, nondistended. Bowel sounds are present. EXTREMITIES: Without edema, erythema or cyanosis. SKIN: Without any petechiae, lesion or bruises. NEUROLOGIC: No focal deficits. PSYCHIATRIC: Mood and affect is appropriate. 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 Presents for the second time in 1 week to this hospital with complaints of sickle cell pain crisis. This time he has chest pain , fever and difficulty breathing. CT anterior gram of the thorax indicates no evidence of pulmonary emboli however he does have a right middle lobe parenchymal infiltrates concerning for pneumonia versus possible acute chest crisis. Plan 1. Sickle cell disease: Transfuse 2 units packed red blood cells. If his condition deteriorates from a cardiopulmonary standpoint he will require red cell exchange transfusion. 2. Continue empiric antibiotics. 3. Continue IV fluid hydration; with a hypotonic saline solution. 4. Incentive spirometry. 5. Pain control with combination of IV and by mouth analgesics. Followed closely for improvement in oxygenation, resolution of fever and improvement in chest pain. Ross Toussaint MD Jun 22, 2017 18:53
[2017-06-22] MEDS ORDERED: ACETAMINOPHEN 325 MG TAB PO PRN (19:00)
[2017-06-22] MEDS ORDERED: ENOXAPARIN SODIUM 40 MG/0.4 ML SYRINGE SQ SCH (19:00)
[2017-06-22] MEDS ORDERED: CEFEPIME INJ 1,000 MG in SODIUM CHLORIDE 0.9% INJ 100 ML IV SCH (19:00)
[2017-06-22] MEDS ORDERED: diphenhydrAMINE HCL 25 MG CAP PO PRN (19:00)
[2017-06-22] MEDS ORDERED: SODIUM CHLOR 0.9% 250 ML INJ 250 ML IV ONE (19:00)
[2017-06-22] MEDS: CEFEPIME INJ 2,000 MG in SODIUM CHLORIDE 0.9% INJ 100 ML IV SCH (20:24)
[2017-06-22] MEDS: VANCOMYCIN 1 GM/200 ML INJ 200 ML IV SCH (20:55)
[2017-06-23] VITALS (14 sets, daily range): BP systolic 100–116; BP diastolic 59–77; PULSE 73–106; RESP 16–20; TEMP 97.6–99.3; O2SAT 93–100
[2017-06-23] MEDS: CEFEPIME INJ 2,000 MG in SODIUM CHLORIDE 0.9% INJ 100 ML IV SCH ×3 (02:35→18:52)
[2017-06-23] MEDS: SODIUM CHLORIDE 0.9% IV PRN ×2 (02:35→09:03)
[2017-06-23] MEDS: HYDROMORPHONE IV PRN ×2 (02:35→09:03)
[2017-06-23] MEDS: oxyCODONE/ACETAMINOPHEN 10 MG/325 MG TAB PO PRN (04:39)
[2017-06-23] MEDS: HEPARIN SODIUM - SQ 10,000 UNITS/ML VIAL SQ SCH ×3 (04:40→21:05)
[2017-06-23] MEDS: diphenhydrAMINE HCL 25 MG CAP PO PRN ×2 (06:47→11:22)
[2017-06-23] MEDS: DOCUSATE SODIUM 100 MG CAP PO SCH ×2 (08:25→21:05)
[2017-06-23] MEDS: FOLIC ACID 1 MG TAB PO SCH (08:26)
[2017-06-23] MEDS: HYDROXYUREA 500 MG CAP PO SCH (08:28)
[2017-06-23] MEDS: METHYLNALTREXONE BROMIDE 12 MG/0.6 ML VIAL SQ SCH (08:33)
[2017-06-23] MEDS: SODIUM CHLORIDE 0.9% FLUSH 10 ML FLUSH IV FLUSH SCH ×2 (08:35→21:04)
[2017-06-23 08:43] LABS: HEMATOCRIT 22.8 % (39.0-51.0); HEMOGLOBIN 7.4 GM/DL (13.0-17.0); MEAN CELL VOLUME 86.4 FL (80.0-100.0); MEAN CORPUSCULAR HEMOGLOBIN 28.1 PG (27.0-34.0); MEAN CORPUSCULAR HGB CONC 32.5 % (32.0-36.0); PLATELET COUNT 1111 TH/MM3 (150-450); RED BLOOD COUNT 2.64 MIL/MM3 (4.50-5.90); RED CELL DISTRIBUTION WIDTH 19.4 % (11.6-17.2); WHITE BLOOD COUNT 25.1 TH/MM3 (4.0-11.0)
[2017-06-23 09:54] LABS: BANDS 1 % (0-6); CORRECTED NUCLEATED RBC 25 /100 WBC (0-0); CORRECTED WBC 20.1 TH/MM3 (4.0-11.0); LYMPHOCYTES 8 % (9-44); MONOCYTES 18 % (0-8); NEUTROPHIL # MANUAL DIFF 14.1 TH/MM3 (1.8-7.7); NUCLEATED RED BLOOD CELL 25 (0-0); POLYS (SEG NEUTROPHILS) 69 % (16-70)
[2017-06-23 09:57] LABS: KERATOCYTES 1+ (NORMAL); OVALOCYTES 1+ (NORMAL); ROULEAUX PRESENT (NORMAL); SICKLE CELLS 1+ (NORMAL); SMUDGE CELLS PRESENT PRESENT; TARGET CELLS 1+ (NORMAL)
[2017-06-23] MEDS: SODIUM CHLOR 0.9% 1000 ML INJ 1,000 ML IV SCH (13:25)
--- NOTE | 2017-06-23 13:34 | PD.ONC.PN ---
Subjective Subjective Remarks complains of pain in the right chest and feels he is no better or worse Objective Data Date Time Temp Pulse Resp B/P (MAP) Pulse Ox O2 Delivery O2 Flow Rate FiO2 06/23/17 12:00 97.6 79 16 108/68 (81) 99 06/23/17 11:35 98.2 82 16 100 06/23/17 11:33 98.2 82 16 108/77 100 06/23/17 09:00 Nasal Cannula 2.00 06/23/17 08:20 98.5 87 16 116/73 100 06/23/17 08:04 98.5 83 16 110/70 100 06/23/17 08:00 99.3 89 16 109/64 (79) 95 06/23/17 04:07 Nasal Cannula 2.00 06/23/17 04:00 98.7 97 18 107/62 (77) 98 06/23/17 00:00 98.9 97 16 100/59 (73) 93 06/22/17 22:00 85 06/22/17 20:00 98.6 85 16 109/66 (80) 100 06/22/17 18:54 18 06/22/17 17:25 99.0 91 14 95/61 (72) 100 06/22/17 14:02 99.2 105 18 129/72 (91) 94 06/23/17 06/23/17 06/23/17 07:00 15:00 23:00 Intake Total 1436 ml 400 ml Output Total 1100 ml Balance 336 ml 400 ml Result Diagram: 06/23/17 0750 06/21/17 0615 Laboratory Results Laboratory Tests Test 06/23/17 07:50 White Blood Count 25.1 TH/MM3 Corrected White Blood Count 20.1 TH/MM3 Red Blood Count 2.64 MIL/MM3 Hemoglobin 7.4 GM/DL Hematocrit 22.8 % Mean Corpuscular Volume 86.4 FL Mean Corpuscular Hemoglobin 28.1 PG Mean Corpuscular Hemoglobin Concent 32.5 % Red Cell Distribution Width 19.4 % Platelet Count 1111 TH/MM3 Mean Platelet Volume 8.0 FL CBC Comment AUTO DIFF Differential Total Cells Counted 100 Neutrophils % (Manual) 69 % Band Neutrophils % 1 % Lymphocytes % 8 % Monocytes % 18 % Eosinophils % 4 % Neutrophils # (Manual) 14.1 TH/MM3 Nucleated Red Blood Cells 25 /100 WBC Differential Comment FINAL DIFF MANUAL Smudge Cells PRESENT Platelet Estimate HIGH Platelet Morphology Comment NORMAL Basophilic Stippling FAINT Sickle Cells 1+ Target Cells 1+ Ovalocytes 1+ Rouleau PRESENT Keratocytes 1+ Culture Results Microbiology Date/Time Source Procedure Growth Status 06/20/17 15:34 Blood Peripheral Aerobic Blood Culture - Preliminary NO GROWTH IN 3 DAYS Resulted 06/20/17 15:34 Blood Peripheral Anaerobic Blood Culture - Preliminary NO GROWTH IN 3 DAYS Resulted 06/20/17 15:34 Blood Peripheral Aerobic Blood Culture - Preliminary NO GROWTH IN 3 DAYS Resulted 06/20/17 15:34 Blood Peripheral Anaerobic Blood Culture - Preliminary NO GROWTH IN 3 DAYS Resulted 06/20/17 15:45 Sputum Expectorated Sputum Gram Stain - Final Complete 06/20/17 15:45 Sputum Expectorated Sputum Sputum Culture - Final HEAVY GROWTH NORMAL RESPIRATORY LATESHA Complete Administered Medications Medications (Trade) Dose Ordered Sig/Thomas Route PRN Reason Start Time Stop Time Status Last Admin Dose Admin Sodium Chloride (NS Flush) 2 ml UNSCH PRN IV FLUSH FLUSH AFTER USING IV ACCESS 06/18/17 00:00 06/20/17 06:08 Sodium Chloride (NS Flush) 2 ml BID IV FLUSH 06/18/17 09:00 06/23/17 08:35 Acetaminophen (Tylenol) 650 mg Q4H PRN PO TEMP > 100.4 06/18/17 00:00 06/20/17 00:10 Ondansetron HCl (Zofran Inj) 4 mg Q6H PRN IVP NAUSEA/VOMITING IF NO P.O. 06/18/17 00:00 06/22/17 15:29 Heparin Sodium (Porcine) (Heparin Inj) 5,000 units Q8HR SQ 06/18/17 06:00 06/23/17 04:40 Docusate Sodium (Colace) 100 mg Q12HR PO 06/18/17 09:00 06/22/17 20:24 Hydroxyurea (Hydrea) 500 mg DAILY PO 06/18/17 09:00 06/23/17 08:28 Levofloxacin/ Dextrose 150 ml @ 100 mls/hr Q24H IV 06/18/17 14:00 06/22/17 15:03 Promethazine HCl (Phenergan) 25 mg Q6H PRN PO MODERATE nausea/vomiting 1/22/18 13:30 06/22/17 17:46 Folic Acid (Folate) 1 mg DAILY PO 06/19/17 09:00 06/23/17 08:26 Sodium Chloride 1,000 ml @ 84 mls/hr [id number] IV 06/18/17 14:15 06/22/17 22:04 Diphenhydramine HCl (Benadryl) 25 mg Q4H PRN PO pruritis 06/19/17 02:45 06/23/17 11:22 Oxycodone/ Acetaminophen (Percocet 10-325 Mg) 1 tab Q4H PRN PO pain scale 6-10 06/20/17 12:15 06/23/17 04:39 Methylnaltrexone [place] (Relistor Inj) 12 mg DAILY SQ 06/22/17 12:00 06/23/17 08:33 Acetaminophen (Tylenol) 650 mg Q4H PRN PO SEE LABEL COMMENTS 06/22/17 19:00 06/23/17 11:22 Vancomycin/Sodium Chloride 200 ml @ 200 mls/hr Q24H IV 06/22/17 20:00 06/22/17 20:55 Cefepime HCl 2000 mg/Sodium Chloride 100 ml @ 200 mls/hr Q8H IV 06/22/17 19:00 06/23/17 11:37 Objective Remarks GENERAL: tired and uncomfortable. SKIN: Warm and dry. HEAD: Normocephalic. EYES: No scleral icterus. No injection or drainage. NECK: Supple, trachea midline. No JVD or lymphadenopathy. LYMPHATIC: No adenopathy. CARDIOVASCULAR: Regular rate and rhythm without murmurs. RESPIRATORY: decreased sounds right base. GASTROINTESTINAL: Abdomen soft, non-tender, nondistended. EXTREMITIES: No cyanosis, or edema. MUSCULOSKELETAL: Adequate muscle tone. tenderness right lateral chest wall. 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 Presents for the second time in 1 week to this hospital with complaints of sickle cell pain crisis. This time he has chest pain , fever and difficulty breathing. CT anterior gram of the thorax indicates no evidence of pulmonary emboli however he does have a right middle lobe parenchymal infiltrates concerning for pneumonia versus possible acute chest crisis. Plan 1. Sickle cell disease: Transfuse 2 units packed red blood cells. If his condition deteriorates from a cardiopulmonary standpoint he will require red cell exchange transfusion. will aim at a hemoglobin of around ten but not higher. check cbc in am. 2. Continue empiric antibiotics. 3. Continue IV fluid hydration; with a hypotonic saline solution. 4. Incentive spirometry. 5. dilaudid written for q 8 hours. it will last at best 2-3 hours iv and have adjusted the dose to .5 mg iv q 3 hours prn and even this is conservative. Followed closely for improvement in oxygenation, resolution of fever and improvement in chest pain. Aroldo Andrews MD Jun 23, 2017 13:34
[2017-06-23] MEDS: LEVOFLOXACIN 750 MG PREMIX INJ 150 ML IV SCH (13:44)
[2017-06-23] MEDS: HYDROmorphone HCL PF 1 MG/ML VIAL IV PUSH PRN ×4 (13:55→23:43)
--- NOTE | 2017-06-23 14:48 | HHI.PR ---
Subjective Remarks Nursing denies any deterioration since last night. Upon walking the room, patient is watching videos on his phone. He does not appear to be labored in his breathing. Apparently has eaten without difficulty. Objective Vital Signs Date Time Temp Pulse Resp B/P (MAP) Pulse Ox O2 Delivery O2 Flow Rate FiO2 06/23/17 12:00 97.6 79 16 108/68 (81) 99 06/23/17 11:35 98.2 82 16 100 06/23/17 11:33 98.2 82 16 108/77 100 06/23/17 09:00 Nasal Cannula 2.00 06/23/17 08:20 98.5 87 16 116/73 100 06/23/17 08:04 98.5 83 16 110/70 100 06/23/17 08:00 99.3 89 16 109/64 (79) 95 06/23/17 04:07 Nasal Cannula 2.00 06/23/17 04:00 98.7 97 18 107/62 (77) 98 06/23/17 00:00 98.9 97 16 100/59 (73) 93 06/22/17 22:00 85 06/22/17 20:00 98.6 85 16 109/66 (80) 100 06/22/17 18:54 18 06/22/17 17:25 99.0 91 14 95/61 (72) 100 I/O 06/22/17 06/22/17 06/22/17 06/23/17 06/23/17 06/23/17 06:59 14:59 22:59 06:59 14:59 22:59 Intake Total 1080 ml 740 ml 1100 ml 1436 ml 1460.25 ml Output Total 1100 ml 800 ml 1100 ml Balance -20 ml -60 ml 1100 ml 336 ml 1460.25 ml Intake Oral 480 ml 240 ml 1000 ml 680 ml 960 ml IV Total 600 ml 500 ml 100 ml 756 ml 100.25 ml Packed Cells 400 ml Output Urine Total 1100 ml 800 ml 1100 ml # Voids 4 3 5 # Bowel Movements 0 1 0 Result Diagram: 06/23/17 0750 06/21/17 0615 Objective Remarks Lung sounds are clear bilaterally however the right lung field sounds substantially more rhonchus/Hollow compared to the left. Upon deep inspiration , he appears to have very minimal splinting. Nasal cannula and nose at the patient has saturations charted at room air. A/P Assessment and Plan 32-year-old male with past medical history of sickle cell anemia with multiple crises discharged from the hospital on Levaquin treated for bronchitis. Sickle cell crisis Severe generalized joint pain. Case was extensively discussed with hematology who is following along, they have modify the pain regimen for the IV Dilaudid. Patient is also on by mouth Percocet. continue folic acid and hydroxurea. received his 2 units of blood this AM. Pneumonia, community-acquired failed treatment Significant improvement with switching antibiotics up to Levaquin, cefepime, and vancomycin. Will consider pulmonology consult for atypical infiltrates on CT. home medications as appropriate Ajit Bob MD Jun 23, 2017 14:47
[2017-06-23] MEDS: RESP: ALBUTEROL 2.5 MG/IPRATROPIUM 0.5 MG NEB (SCH) NEB ×2 (16:14→19:27)
[2017-06-23] MEDS: VANCOMYCIN 1 GM/200 ML INJ 200 ML IV SCH (21:04)
[2017-06-24] VITALS (9 sets, daily range): BP systolic 103–120; BP diastolic 58–72; PULSE 68–92; RESP 16–20; TEMP 97.5–99.4; O2SAT 96–100
[2017-06-24] MEDS: CEFEPIME INJ 2,000 MG in SODIUM CHLORIDE 0.9% INJ 100 ML IV SCH ×3 (03:04→18:10)
[2017-06-24] MEDS: oxyCODONE/ACETAMINOPHEN 10 MG/325 MG TAB PO PRN ×2 (03:04→23:16)
[2017-06-24] MEDS: SODIUM CHLOR 0.9% 1000 ML INJ 1,000 ML IV SCH ×2 (03:07→13:15)
[2017-06-24] MEDS: HEPARIN SODIUM - SQ 10,000 UNITS/ML VIAL SQ SCH ×3 (05:11→21:25)
[2017-06-24] MEDS: HYDROmorphone HCL PF 1 MG/ML VIAL IV PUSH PRN ×5 (05:22→19:56)
[2017-06-24] MEDS: DOCUSATE SODIUM 100 MG CAP PO SCH ×2 (08:41→21:00)
[2017-06-24] MEDS: SODIUM CHLORIDE 0.9% FLUSH 10 ML FLUSH IV FLUSH SCH ×2 (08:41→21:25)
[2017-06-24] MEDS: FOLIC ACID 1 MG TAB PO SCH (08:41)
[2017-06-24] MEDS: HYDROXYUREA 500 MG CAP PO SCH (08:47)
[2017-06-24] MEDS: METHYLNALTREXONE BROMIDE 12 MG/0.6 ML VIAL SQ SCH (09:16)
[2017-06-24 09:50] LABS: HEMATOCRIT 29.1 % (39.0-51.0); HEMOGLOBIN 9.4 GM/DL (13.0-17.0); MEAN CELL VOLUME 86.9 FL (80.0-100.0); MEAN CORPUSCULAR HEMOGLOBIN 28.2 PG (27.0-34.0); MEAN CORPUSCULAR HGB CONC 32.5 % (32.0-36.0); MEAN PLATELET VOLUME 8.4 FL (7.0-11.0); PLATELET COUNT 1047 TH/MM3 (150-450); RED BLOOD COUNT 3.35 MIL/MM3 (4.50-5.90); RED CELL DISTRIBUTION WIDTH 19.1 % (11.6-17.2); WHITE BLOOD COUNT 15.5 TH/MM3 (4.0-11.0)
[2017-06-24] MEDS: RESP: ALBUTEROL 2.5 MG/IPRATROPIUM 0.5 MG NEB (SCH) NEB ×3 (09:57→21:16)
[2017-06-24 10:24] LABS: BANDS 1 % (0-6); BASOPHILS 1 % (0-2); CORRECTED NUCLEATED RBC 33 /100 WBC (0-0); CORRECTED WBC 11.7 TH/MM3 (4.0-11.0); LYMPHOCYTES 23 % (9-44); MONOCYTES 11 % (0-8); NUCLEATED RED BLOOD CELL 33 (0-0); POLYS (SEG NEUTROPHILS) 59 % (16-70)
[2017-06-24 10:26] LABS: KERATOCYTES OCC (NORMAL); OVALOCYTES 1+ (NORMAL); ROULEAUX PRESENT (NORMAL); SICKLE CELLS 1+ (NORMAL); TARGET CELLS 1+ (NORMAL)
[2017-06-24] MEDS: LEVOFLOXACIN 750 MG PREMIX INJ 150 ML IV SCH (13:38)
--- NOTE | 2017-06-24 14:49 | HHI.PR ---
Subjective Remarks Nursing denies any deterioration since last night. Patient still ask for pain medication around the clock. Patient himself says that he has the same level of pain since coming to the emergency room. When asked what assisted local sickle cell pain, he says that is mainly in his joints but he affirms that the pain in his chest is a different pain and that is not typical for him. Objective Vital Signs Date Time Temp Pulse Resp B/P (MAP) Pulse Ox O2 Delivery O2 Flow Rate FiO2 06/24/17 12:00 97.5 80 16 103/64 (77) 97 06/24/17 09:58 99 Nasal Cannula 2.00 06/24/17 08:30 Nasal Cannula 2.00 06/24/17 08:00 98.5 68 16 120/72 (88) 100 06/24/17 04:00 73 18 107/58 (74) 99 06/24/17 00:00 99.4 85 18 112/62 (79) 100 06/23/17 20:00 98.3 86 20 102/60 (74) 99 06/23/17 20:00 106 06/23/17 19:41 Nasal Cannula 2.00 06/23/17 19:28 99 Nasal Cannula 2.00 06/23/17 16:17 99 Nasal Cannula 2.00 06/23/17 16:00 97.9 78 18 110/67 (81) 100 I/O 06/23/17 06/23/17 06/23/17 06/24/17 06/24/17 06/24/17 07:00 15:00 23:00 07:00 15:00 23:00 Intake Total 1436 ml 1560.25 ml 900 ml 1421 ml Output Total 1100 ml 1650 ml Balance 336 ml 1560.25 ml 900 ml -229 ml Intake Oral 680 ml 960 ml 480 ml IV Total 756 ml 200.25 ml 450 ml 941 ml Packed Cells 400 ml 400 ml Blood Product IV Normal Saline Flush 50 ml Output Urine Total 1100 ml 1650 ml # Voids 5 # Bowel Movements 0 0 Result Diagram: 06/24/17 0729 06/21/17 0615 Objective Remarks Seen lying in bed, very comfortably sleeping Clear breath sounds bilaterally Has some very mild tenderness palpation of the epigastrium A/P Assessment and Plan 32-year-old male with past medical history of sickle cell anemia with multiple crises discharged from the hospital on Levaquin treated for bronchitis. Sickle cell crisis Severe generalized joint pain. Case was extensively discussed with hematology again, who recommended doing a walk test with the patient and using a rather physiological gauge as to when the pt is ready to go home. Possible discharge tomorrow. Anemia improved after 2 units infusion. continue IV pain medication and by mouth Percocet.continue hydroxyurea Pneumonia, community-acquired failed treatment left sided chest pain evident continue abx home medications are appropriate Ajit Bob MD Jun 24, 2017 14:49
[2017-06-24] MEDS: PROMETHAZINE HCL 25 MG TAB PO PRN (19:57)
[2017-06-24] MEDS: VANCOMYCIN 1 GM/200 ML INJ 200 ML IV SCH (19:58)
[2017-06-25] VITALS: BP 124/85; PULSE 78; RESP 20; TEMP 97.9; O2SAT 98
[2017-06-25] MEDS: CEFEPIME INJ 2,000 MG in SODIUM CHLORIDE 0.9% INJ 100 ML IV SCH ×2 (03:11→11:13)
[2017-06-25] MEDS: SODIUM CHLOR 0.9% 1000 ML INJ 1,000 ML IV SCH (03:14)
[2017-06-25] MEDS: HEPARIN SODIUM - SQ 10,000 UNITS/ML VIAL SQ SCH (05:55)
[2017-06-25] MEDS: oxyCODONE/ACETAMINOPHEN 10 MG/325 MG TAB PO PRN (06:15)
[2017-06-25] MEDS: RESP: ALBUTEROL 2.5 MG/IPRATROPIUM 0.5 MG NEB (SCH) NEB (07:44)
[2017-06-25 08:00] VITALS: BP 101/58; PULSE 74; RESP 18; TEMP 97.8; O2SAT 97; O2SAT 98
[2017-06-25] MEDS: FOLIC ACID 1 MG TAB PO SCH (08:42)
[2017-06-25] MEDS: SODIUM CHLORIDE 0.9% FLUSH 10 ML FLUSH IV FLUSH SCH (08:43)
[2017-06-25] MEDS: DOCUSATE SODIUM 100 MG CAP PO SCH (08:43)
[2017-06-25] MEDS: METHYLNALTREXONE BROMIDE 12 MG/0.6 ML VIAL SQ SCH (08:43)
[2017-06-25] MEDS: HYDROXYUREA 500 MG CAP PO SCH (08:45)
[2017-06-25] MEDS ORDERED: LEVO500T8 PO (10:37)
--- NOTE | 2017-06-25 10:38 | HHI.DCPOC ---
Discharge Care Plan Diagnosis: (1) Sickle cell anemia (2) Sickle cell crisis (3) Atypical pneumonia Goals to Promote Your Health * To prevent worsening of your condition and complications * To maintain your health at the optimal level Directions to Meet Your Goals Take your medications as prescribed Follow your dietary instruction Follow activity as directed Keep your appointments as scheduled Take your immunizations and boosters as scheduled If your symptoms worsen call your PCP, if no PCP go to Urgent Care Center or Emergency Room Smoking is Dangerous to Your Health. Avoid second hand smoke Call the 24-hour hour crisis hotline for domestic abuse at Ajit Bob MD Jun 25, 2017 10:38
[2017-06-25 12:00] VITALS: BP 102/57; PULSE 82; RESP 12; TEMP 98; O2SAT 97
[2017-06-25] MEDS ORDERED: OXYC1TAB36 PO (12:01)
--- NOTE | 2017-06-25 12:04 | HHI.DS ---
Discharge Summary Admission Date Jun 18, 2017 at 00:55 Discharge Date: Jun 25, 2017 Admitting Diagnosis pneumonia (1) Atypical pneumonia ICD Code: J18.9 - Pneumonia, unspecified organism Status: Resolved (2) Sickle cell crisis ICD Code: D57.00 - Hb-SS disease with crisis, unspecified Status: Acute (3) Sickle cell anemia ICD Code: D57.1 - Sickle-cell disease without crisis Status: Chronic Procedures transfusion Brief History - From Admission 32-year-old male with past medical history of sickle cell anemia with multiple crises discharged from the hospital on Levaquin treated for bronchitis. Patient return to the emergency room now with complaints of chest pain and all joints hurting. Says shortness of breath improved and is not coughing much. Denies fever or chills no diaphoresis, nausea. No lightheadedness. He complains of headache on and off. No abdominal pain or diarrhea or constipation. No urinary complaints. Not eating much has less appetite. CBC/BMP: 06/24/17 0729 06/21/17 0615 Significant Findings Laboratory Tests Test 06/23/17 07:50 06/24/17 07:29 White Blood Count 25.1 TH/MM3 (4.0-11.0) 15.5 TH/MM3 (4.0-11.0) Corrected White Blood Count 20.1 TH/MM3 (4.0-11.0) 11.7 TH/MM3 (4.0-11.0) Red Blood Count 2.64 MIL/MM3 (4.50-5.90) 3.35 MIL/MM3 (4.50-5.90) Hemoglobin 7.4 GM/DL (13.0-17.0) 9.4 GM/DL (13.0-17.0) Hematocrit 22.8 % (39.0-51.0) 29.1 % (39.0-51.0) Red Cell Distribution Width 19.4 % (11.6-17.2) 19.1 % (11.6-17.2) Platelet Count 1111 TH/MM3 (150-450) 1047 TH/MM3 (150-450) Lymphocytes % 8 % (9-44) Monocytes % 18 % (0-8) 11 % (0-8) Neutrophils # (Manual) 14.1 TH/MM3 (1.8-7.7) Nucleated Red Blood Cells 25 /100 WBC (0-0) 33 /100 WBC (0-0) Platelet Estimate HIGH (NORMAL) HIGH (NORMAL) Basophilic Stippling FAINT (NORMAL) FAINT (NORMAL) Sickle Cells 1+ (NORMAL) 1+ (NORMAL) Target Cells 1+ (NORMAL) 1+ (NORMAL) Ovalocytes 1+ (NORMAL) 1+ (NORMAL) Rouleau PRESENT (NORMAL) PRESENT (NORMAL) Keratocytes 1+ (NORMAL) Eosinophils % 5 % (0-4) PE at Discharge GENERAL: Well-nourished, well-developed patient with complaints of generalized pain SKIN: Warm and dry. No rash. HEAD: Normocephalic. Atraumatic. EYES: Pupils equal and round. No scleral icterus. No injection or drainage. ENT: No nasal bleeding or discharge. Mucous membranes pink and moist. NECK: Supple. Trachea midline. CARDIOVASCULAR: Regular rate and rhythm. S1, S2 noted. No murmur appreciated. RESPIRATORY: No accessory muscle use. Clear to auscultation. Breath sounds equal bilaterally. GASTROINTESTINAL: Abdomen soft, non-tender, nondistended. Normoactive bowel sounds x4. MUSCULOSKELETAL: No obvious deformities. Extremities without clubbing, cyanosis , or edema. NEUROLOGICAL: Awake and alert. No obvious cranial nerve deficits. Motor grossly within normal limits. 5/5 muscle strength in bilateral upper and lower extremities. Normal speech. PSYCHIATRIC: Appropriate mood and affect; insight and judgment normal. Hospital Course Patient was admitted. Started on antibiotics and pain control. He had persistent uncontrolled pain for over 24 hours. Thus his antibiotics were escalated and Hematology was consulted. With their further guidance the patient did receive 2 units of blood. By that point his respiratory status had stabilized, he had passed a walk test. And it was concluded that the patient's pain level was very controlled on by mouth medications in the last 24 hours. Patient has met maximum benefit from hospitalization and is clinically stable for discharge. Pt Condition on Discharge: Stable Discharge Disposition: Disch w/ Home Health Serv Discharge Time: <= 30 minutes Discharge Instructions DIET: Follow Instructions for: Heart Healthy Diet Activities you can perform: Regular-No Restrictions Follow up Referrals: Oncology/Hematology - 1 Week PCP Follow-up - 1 Week New Medications: Oxycodone HCl/Acetaminophen (Oxycodone-Acetaminophen 10-325) 10 Mg-325 Mg Tablet 1 TAB PO Q6HR PRN for pain scale 6-10, #40 TAB Continued Medications: Docusate Sodium (Dok) 100 Mg Cap 100 MG PO Q12HR for Bowel Management, #20 CAP Hydroxyurea (Hydrea) 500 Mg Cap 500 MG PO DAILY, #60 CAP 0 Refills Levofloxacin (Levofloxacin) 500 Mg Tablet 500 MG PO DAILY for Infection, #7 TAB 0 Refills (This prescription has been renewed) Prochlorperazine Maleate (Prochlorperazine Maleate) 10 Mg Tab 10 MG PO Q6H PRN for NAUSEA OR VOMITING, #20 TAB 0 Refills Discontinued Medications: Hydromorphone (Dilaudid) 2 Mg Tab 1 MG PO Q6H PRN for pain 7-10, #10 TAB Ajit Bob MD Jun 25, 2017 12:04
[2017-06-25] MEDS ORDERED: SODIUM CHLORIDE 0.9% FLUSH 10 ML FLUSH IV FLUSH PRN (15:00)
== END 2017-06-25 15:39 | disposition home or self-care (01) | DRG 811 ==
LOC: PHEDDLT 06-18 00:45 → PH3A 06-18 00:55
PROVIDERS: ADMIT Hospitalist; ATTEND Hospitalist
PROC: 30233N1 Transfusion of Nonautologous Red Blood Cells into Peripheral Vein, Percutaneous Approach (ICD-10-PCS; principal; 2017-06-23)
DX: D57.00 Hb-SS disease with crisis, unspecified (principal); J18.9 Pneumonia, unspecified organism; Z91.19 Patient's noncompliance with other medical treatment and regimen; E83.119 Hemochromatosis, unspecified
CPT/HCPCS: 36430; 71045; 71275; 76937; 80048; 80053; 81001; 82247; 82248; 82550; 83020; 83615; 83735; 83880; 84484; 85007; 85027; 85044; 85379; 85610; 85660; 85730; 86077; 86850; 86870; 86900; 86901; 86902; 86920; 86921; 86922; 87040; 87070; 87205; 87804; 93005; 94150; 94618; 94640; 94664; 96365; 96366; 96368; 96375; 96376; J0692; J1170; J1642; J1644; J1885; J1956; J2212; J2270; J2405; J2543; J2930; J3370; J7030; J7050; J7070; P9016; Q0169; Q9967

== ENCOUNTER 2017-10-05 19:45 | Inpatient (IN) | payer BC, MEDICAID, OTHER ==
[~2017-10-05 19:45] MED LIST changes: +ACETAMINOPHEN 325 MG TAB PO PRN; +HYDROmorphone HCL PF 2 MG/ML VIAL IV PUSH PRN; +NALOXONE HCL 0.4 MG/ML AMP IV PUSH PRN; +OXYC1TAB36 PO
[2017-10-05] MEDS: SODIUM CHLORIDE 0.9% FLUSH 10 ML FLUSH IV FLUSH SCH (20:15)
[2017-10-05] MEDS: SODIUM CHLOR 0.9% 1000 ML INJ 1,000 ML IV SCH (20:15)
[2017-10-05] MEDS: DOCUSATE SODIUM 50 MG/SENNA 8.6 MG TAB PO SCH (20:16)
[2017-10-05 21:18] VITALS: BP 116/75; PULSE 84; RESP 20; TEMP 98.2; O2SAT 100
[2017-10-05] MEDS: ONDANSETRON HCL 4 MG/2 ML VIAL IVP PRN (23:19)
[2017-10-06] VITALS (12 sets, daily range): BP systolic 90–121; BP diastolic 50–73; PULSE 79–99; RESP 16–20; TEMP 97.1–98; O2SAT 97–100
[2017-10-06] MEDS: HYDROmorphone HCL PF 4 MG/ML VIAL IV PUSH PRN ×2 (01:36→05:13)
[2017-10-06] MEDS: SODIUM CHLOR 0.9% 1000 ML INJ 1,000 ML IV SCH ×3 (01:39→13:43)
[2017-10-06] MEDS: ONDANSETRON HCL 4 MG/2 ML VIAL IVP PRN ×3 (05:24→22:41)
[2017-10-06] MEDS ORDERED: diphenhydrAMINE HCL 25 MG CAP PO ONE (05:45)
[2017-10-06 07:26] LABS: CHLORIDE 109 MEQ/L (98-107); SODIUM (NA) 141 MEQ/L (136-145)
[2017-10-06 07:29] LABS: CALCIUM 8.3 MG/DL (8.5-10.1)
[2017-10-06 07:32] LABS: ALBUMIN 3.7 GM/DL (3.4-5.0); BICARBONATE 27.8 MEQ/L (21.0-32.0); BLOOD UREA NITROGEN 5 MG/DL (7-18); GLUCOSE,RANDOM 81 MG/DL (74-106)
[2017-10-06 07:33] LABS: ALT (GPT) 31 U/L (12-78)
[2017-10-06 07:34] LABS: AST (GOT) 46 U/L (15-37)
[2017-10-06 07:35] LABS: CREATININE 0.62 MG/DL (0.60-1.30); GLOMERULAR FILTRATION RATE 180 ML/MIN (>89); TOTAL BILIRUBIN ADULT 2.6 MG/DL (0.2-1.0); TOTAL PROTEIN 8.1 GM/DL (6.4-8.2)
[2017-10-06 07:36] LABS: ALKALINE PHOSPHATASE 120 U/L (45-117)
[2017-10-06 07:37] LABS: HEMOGLOBIN 7.5 GM/DL (13.0-17.0); MEAN CELL VOLUME 99.2 FL (80.0-100.0); MEAN CORPUSCULAR HEMOGLOBIN 35.3 PG (27.0-34.0); MEAN CORPUSCULAR HGB CONC 35.6 % (32.0-36.0); PLATELET COUNT 284 TH/MM3 (150-450); RED BLOOD COUNT 2.11 MIL/MM3 (4.50-5.90); RED CELL DISTRIBUTION WIDTH 21.9 % (11.6-17.2); WHITE BLOOD COUNT 16.3 TH/MM3 (4.0-11.0)
[2017-10-06 08:25] LABS: BANDS 1 % (0-6); BASOPHILS 1 % (0-2); CORRECTED NUCLEATED RBC 9 /100 WBC (0-0); LYMPHOCYTES 45 % (9-44); MONOCYTES 11 % (0-8); NEUTROPHIL # MANUAL DIFF 6.3 TH/MM3 (1.8-7.7); NUCLEATED RED BLOOD CELL 9 (0-0); POLYS (SEG NEUTROPHILS) 41 % (16-70)
[2017-10-06 08:26] LABS: OVALOCYTES 1+ (NORMAL); ROULEAUX PRESENT (NORMAL); SICKLE CELLS 1+ (NORMAL); TARGET CELLS 1+ (NORMAL)
[2017-10-06] MEDS ORDERED: PROCHLORPERAZINE INJ 10 MG/2 ML VIAL IV PUSH ONE ×2 (09:15→23:30)
[2017-10-06] MEDS: DOCUSATE SODIUM 50 MG/SENNA 8.6 MG TAB PO SCH ×2 (09:41→20:48)
[2017-10-06] MEDS: SODIUM CHLORIDE 0.9% FLUSH 10 ML FLUSH IV FLUSH SCH ×2 (09:57→20:48)
--- NOTE | 2017-10-06 12:19 | HHI.HP ---
[facility] Non-Staff Admission Diagnosis Diagnoses: Chief Complaint: Chest pain Travel History International Travel<30 Days: No Contact w/Intl Traveler <30 Da: No Traveled to Known Affected Are: No History of Present Illness This patient is a 32-year-old gentleman with a known history of sickle cell disease and anemia. Patient does complain of increased severe severe joint pain and increased cough and shortness of breath over the last several days. Patient says he has had Dilaudid at home without improvement in the discomfort. He denies any fevers or chills. He presents with elevated white cell count, elevated heart rate and imaging which supports a right upper lobe consolidation. Patient's been admitted to the hospital for further evaluation and treatment of sickle cell disease with possible pneumonia. Review of Systems Constitutional: DENIES: Diaphoretic episodes, Fatigue, Fever, Weight gain, Weight loss, Chills, Dizziness, Change in appetite, Night Sweats Endocrine: DENIES: Heat/cold intolerance, Polydipsia, Polyuria, Polyphagia Eyes: DENIES: Blurred vision, Diplopia, Eye inflammation, Eye pain, Vision loss , Photosensitivity, Double Vision Ears, nose, mouth, throat: DENIES: Tinnitus, Hearing loss, Vertigo, Nasal discharge, Oral lesions, Throat pain, Hoarseness, Ear Pain, Running Nose, Epistaxis, Sinus Pain, Toothache, Odynophagia Respiratory: COMPLAINS OF: Cough, DENIES: Apneas, Snoring, Wheezing, Hemoptysis , Sputum production, Shortness of breath Cardiovascular: COMPLAINS OF: Chest pain Gastrointestinal: DENIES: Abdominal pain, Black stools, Bloody stools, Constipation, Diarrhea, Nausea, Vomiting, Difficulty Swallowing, Anorexia Genitourinary: DENIES: Sexual dysfunction, Urinary frequency, Urinary incontinence, Urgency, Hematuria, Dysuria, Nocturia, Penile Discharge, Testicular Pain, Testicular Swelling Musculoskeletal: COMPLAINS OF: Joint pain, Muscle aches, Back pain, DENIES: Stiffness, Joint Swelling, Neck pain Integumentary: DENIES: Abnormal pigmentation, Nail changes, Pruritus, Rash Hematologic/lymphatic: DENIES: Bruising, Lymphadenopathy Immunologic/allergic: DENIES: Eczema, Urticaria Neurologic: DENIES: Abnormal gait, Headache, Localized weakness, Paresthesias, Seizures, Speech Problems, Tremor, Poor Balance Psychiatric: DENIES: Anxiety, Confusion, Mood changes, Depression, Hallucinations, Agitation, Suicidal Ideation, Homicidal Ideation, Delusions Except as stated in HPI: all other systems reviewed are Neg Past Family Social History Past Medical History Sickle cell disease Chronic anemia Past Surgical History Cholecystectomy Reported Medications Replace and reviewed in the EMR transfer techs, recently prescribed Dilaudid after being discharged from the hospital Allergies: Coded Allergies: No Known Allergies (Unverified Allergy, Unknown, 10/05/17) Active Ordered Medications Reviewed in the EMR Family History Sickle trait Social History Lives with his family, is employed full-time Physical Exam Vital Signs Vital Signs Date Time Temp Pulse Resp B/P (MAP) Pulse Ox O2 Delivery O2 Flow Rate FiO2 10/06/17 09:30 98 Nasal Cannula 2.00 10/06/17 08:00 97.7 85 20 102/55 (71) 97 10/06/17 05:43 20 10/06/17 05:23 20 10/06/17 05:15 99 Nasal Cannula 2.00 10/06/17 04:18 97.1 99 20 110/71 (84) 99 10/06/17 01:43 97.6 83 20 112/73 (86) 100 10/05/17 21:18 98.2 84 20 116/75 (89) 100 Physical Exam GENERAL: This is a well-nourished, well-developed patient, complaining of generalized pain in the bones as well as right-sided chest discomfort SKIN: No rashes, ecchymoses or lesions. Cool and dry. HEAD: Atraumatic. Normocephalic. No temporal or scalp tenderness. EYES: Pupils equal round and reactive. Extraocular motions intact. No scleral icterus. No injection or drainage. ENT: Nose without bleeding, purulent drainage or septal hematoma. Throat without erythema, tonsillar hypertrophy or exudate. Uvula midline. Airway patent. NECK: Trachea midline. No JVD or lymphadenopathy. Supple, nontender, no meningeal signs. CARDIOVASCULAR: Regular rate and rhythm without murmurs, gallops, or rubs. RESPIRATORY: Clear to auscultation. Breath sounds equal bilaterally. No wheezes , rales, or rhonchi. GASTROINTESTINAL: Abdomen soft, non-tender, nondistended. No hepato-splenomegaly , or palpable masses. No guarding. MUSCULOSKELETAL: Extremities without clubbing, cyanosis, or edema. No joint tenderness, effusion, or edema noted. No calf tenderness. Negative Homans sign bilaterally. NEUROLOGICAL: Awake and alert. Cranial nerves II through XII intact. Motor and sensory grossly within normal limits. Five out of 5 muscle strength in all muscle groups. Normal speech. Laboratory Laboratory Tests Test 10/06/17 06:35 White Blood Count 16.3 Corrected White Blood Count 15.0 Red Blood Count 2.11 Hemoglobin 7.5 Hematocrit 21.0 Mean Corpuscular Volume 99.2 Mean Corpuscular Hemoglobin 35.3 Mean Corpuscular Hemoglobin Concent 35.6 Red Cell Distribution Width 21.9 Platelet Count 284 Mean Platelet Volume 9.0 CBC Comment AUTO DIFF Differential Total Cells Counted 100 Neutrophils % (Manual) 41 Band Neutrophils % 1 Lymphocytes % 45 Monocytes % 11 Eosinophils % 1 Basophils % 1 Neutrophils # (Manual) 6.3 Nucleated Red Blood Cells 9 Differential Comment FINAL DIFF MANUAL Platelet Estimate NORMAL Platelet Morphology Comment NORMAL Sickle Cells 1+ Target Cells 1+ Ovalocytes 1+ Rouleau PRESENT Blood Urea Nitrogen 5 Creatinine 0.62 Random Glucose 81 Total Protein 8.1 Albumin 3.7 Calcium Level 8.3 Alkaline Phosphatase 120 Aspartate Amino Transf (AST/SGOT) 46 Alanine Aminotransferase (ALT/SGPT) 31 Total Bilirubin 2.6 Sodium Level 141 Potassium Level 3.9 Chloride Level 109 Carbon Dioxide Level 27.8 Anion Gap 4 Estimat Glomerular Filtration Rate 180 Result Diagram: 10/06/1735 10/06/[address] of the chest shows right upper lobe consolidation Septic Shock Reassessment Septic shock perfusion: reassessment completed Caprini VTE Risk Assessment Caprini VTE Risk Assessment: Mod/High Risk (score >= 2) Caprini Risk Assessment Model Point Value = 1 Point Value = 2 Point Value = 3 Point Value = 5 Age 41-60 Minor surgery BMI > 25 kg/m2 Swollen legs Varicose veins or History of unexplained or recurrent spontaneous Oral contraceptives or hormone replacement Sepsis (< 1 month) Serious lung disease, including pneumonia (< 1 month) Abnormal pulmonary function Acute myocardial infarction Congestive heart failure (< 1 month) History of inflammatory bowel disease Medical patient at bed rest Age 61-74 Arthroscopic surgery Major open surgery (> 45 min) Laparoscopic surgery (> 45 min) Malignancy Confined to bed (> 72 hours) Immobilizing plaster cast Central venous access Age >= 75 History of VTE Family history of VTE Factor V Leiden Prothrombin [id number] Lupus anticoagulant Anticardiolipin antibodies Elevated serum homocysteine Heparin-induced thrombocytopenia Other congenital or acquired thrombophilia Stroke (< 1 month) Elective arthroplasty Hip, pelvis, or leg fracture Acute spinal cord injury (< 1 month) Prophylaxis Regimen Total Risk Factor Score Risk Level Prophylaxis Regimen 0-1 Low Early ambulation 2 Moderate Order ONE of the following: *Sequential Compression Device (SCD) *Heparin 5000 units SQ BID 3-4 Higher Order ONE of the following medications: *Heparin 5000 units SQ TID *Enoxaparin/Lovenox 40 mg SQ daily (WT < 150 kg, CrCl > 30 mL/min) *Enoxaparin/Lovenox 30 mg SQ daily (WT < 150 kg, CrCl > 10-29 mL/min) *Enoxaparin/Lovenox 30 mg SQ BID (WT < 150 kg, CrCl > 30 mL/min) AND/OR *Sequential Compression Device (SCD) 5 or more Highest Order ONE of the following medications: *Heparin 5000 units SQ TID (Preferred with Epidurals) *Enoxaparin/Lovenox 40 mg SQ daily (WT < 150 kg, CrCl > 30 mL/min) *Enoxaparin/Lovenox 30 mg SQ daily (WT < 150 kg, CrCl > 10-29 mL/min) *Enoxaparin/Lovenox 30 mg SQ BID (WT < 150 kg, CrCl > 30 mL/min) AND *Sequential Compression Device (SCD) Assessment and Plan Problem List: (1) Sickle cell anemia ICD Code: D57.1 - Sickle-cell disease without crisis Status: Chronic Plan: Patient follows 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 He was recently in the hospital and was discharged couple of days ago. He comes our facility frequently. Continued follow-up clinically with IV hydration, pain management Rule out infectious causes (2) Sepsis ICD Code: A41.9 - Sepsis, unspecified organism Status: Resolved Plan: Worrisome for pneumonia? Healthcare associated We will add IV antibiotics (vancomycin and cefepime due to recent hospitalizations) Follow-up counts Patient with elevated heart rate, hypotension and leukocytosis with abnormal chest imaging. Code Status Full code Discussed Condition With Patient, Izabel RN Physician Certification 2 Midnight Certification Type: Admission for Inpatient Services Order for Inpatient Services The services are ordered in accordance with Medicare regulations or non- Medicare payer requirements, as applicable. In the case of services not specified as inpatient-only, they are appropriately provided as inpatient services in accordance with the 2-midnight benchmark. Estimated LOS (days): 3 3 days is the estimated time the patient will need to remain in the hospital, assuming treatment plan goals are met and no additional complications. Post-Hospital Plan: Norah Alan MD October 06, 2017 12:19
[2017-10-06] MEDS ORDERED: KETOROLAC TROMETHAMINE 30 MG/ML (IVP) VIAL IV PUSH PRN (13:30)
[2017-10-06] MEDS: CEFEPIME INJ 1,000 MG in SODIUM CHLORIDE 0.9% INJ 100 ML IV SCH ×2 (13:58→21:23)
[2017-10-06] MEDS: HEPARIN SODIUM - SQ 10,000 UNITS/ML VIAL SQ SCH ×2 (14:00→20:48)
[2017-10-06] MEDS: HYDROmorphone HCL PF 0.5 MG/0.5 ML SYRINGE IV PRN ×3 (14:25→22:10)
[2017-10-06] MEDS: VANCOMYCIN INJ 1,000 MG in SODIUM CHLOR 0.9% 250 ML INJ 250 ML IV SCH (15:19)
[2017-10-07] VITALS: BP_SYST 104; BP_SYST 93; BP_DIAS 54; BP_DIAS 62; PULSE 69; RESP 18; RESP 20; TEMP 97.5; TEMP 98.9; O2SAT 100; O2SAT 99
[2017-10-07] MEDS: HYDROmorphone HCL PF 0.5 MG/0.5 ML SYRINGE IV PRN ×3 (02:15→09:01)
[2017-10-07] MEDS: VANCOMYCIN INJ 1,000 MG in SODIUM CHLOR 0.9% 250 ML INJ 250 ML IV SCH ×2 (02:16→14:27)
[2017-10-07] MEDS: SODIUM CHLOR 0.9% 1000 ML INJ 1,000 ML IV SCH ×5 (02:17→20:19)
[2017-10-07] MEDS: CEFEPIME INJ 1,000 MG in SODIUM CHLORIDE 0.9% INJ 100 ML IV SCH ×3 (05:40→20:20)
[2017-10-07] MEDS: ONDANSETRON HCL 4 MG/2 ML VIAL IVP PRN (05:42)
[2017-10-07] MEDS: HEPARIN SODIUM - SQ 10,000 UNITS/ML VIAL SQ SCH ×3 (05:42→20:44)
[2017-10-07 07:01] LABS: HEMATOCRIT 21.2 % (39.0-51.0); HEMOGLOBIN 7.4 GM/DL (13.0-17.0); MEAN CELL VOLUME 98.4 FL (80.0-100.0); MEAN CORPUSCULAR HEMOGLOBIN 34.4 PG (27.0-34.0); MEAN CORPUSCULAR HGB CONC 34.9 % (32.0-36.0); MEAN PLATELET VOLUME 8.3 FL (7.0-11.0); PLATELET COUNT 344 TH/MM3 (150-450); RED BLOOD COUNT 2.16 MIL/MM3 (4.50-5.90); RED CELL DISTRIBUTION WIDTH 23.6 % (11.6-17.2); WHITE BLOOD COUNT 12.5 TH/MM3 (4.0-11.0)
[2017-10-07 07:36] LABS: CORRECTED NUCLEATED RBC 37 /100 WBC (0-0); CORRECTED WBC 9.1 TH/MM3 (4.0-11.0); LYMPHOCYTES 34 % (9-44); MONOCYTES 6 % (0-8); MYELOCYTES 2 % (0-0); NEUTROPHIL # MANUAL DIFF 5.1 TH/MM3 (1.8-7.7); NUCLEATED RED BLOOD CELL 37 (0-0); POLYS (SEG NEUTROPHILS) 54 % (16-70)
[2017-10-07 07:37] LABS: OVALOCYTES 1+ (NORMAL); SICKLE CELLS 2+ (NORMAL)
[2017-10-07 07:51] LABS: CHLORIDE 108 MEQ/L (98-107); SODIUM (NA) 143 MEQ/L (136-145)
[2017-10-07 07:55] LABS: CALCIUM 8.5 MG/DL (8.5-10.1); GLUCOSE,RANDOM 82 MG/DL (74-106)
[2017-10-07 07:56] LABS: ALBUMIN 3.4 GM/DL (3.4-5.0); BICARBONATE 29.2 MEQ/L (21.0-32.0); BLOOD UREA NITROGEN 4 MG/DL (7-18)
[2017-10-07 07:59] LABS: ALT (GPT) 28 U/L (12-78); AST (GOT) 37 U/L (15-37); CREATININE 0.52 MG/DL (0.60-1.30); GLOMERULAR FILTRATION RATE 220 ML/MIN (>89)
[2017-10-07 08:00] VITALS: BP 100/57; PULSE 72; RESP 19; TEMP 98.5; O2SAT 98; O2SAT 99
[2017-10-07 08:00] LABS: TOTAL BILIRUBIN ADULT 2.2 MG/DL (0.2-1.0)
[2017-10-07 08:01] LABS: TOTAL PROTEIN 7.8 GM/DL (6.4-8.2)
[2017-10-07 08:02] LABS: ALKALINE PHOSPHATASE 109 U/L (45-117)
--- NOTE | 2017-10-07 08:40 | HHI.PR ---
Subjective Remarks Patient seen and evaluated today in follow-up for sickle cell related pain. Overall improved. Patient tolerating vancomycin cefepime. Counts remained stable. Patient says his pain is better Objective Vitals Vital Signs Date Time Temp Pulse Resp B/P (MAP) Pulse Ox O2 Delivery O2 Flow Rate FiO2 10/07/17 00:00 97.5 69 20 104/62 (76) 100 10/06/17 20:00 98.0 79 20 111/68 (82) 100 10/06/17 19:53 99 Nasal Cannula 2.00 10/06/17 18:41 16 10/06/17 17:59 17 10/06/17 16:00 97.7 82 19 101/56 (71) 98 10/06/17 14:55 18 10/06/17 14:02 121/66 (84) 10/06/17 12:00 97.9 82 20 90/50 (63) 97 10/06/17 09:30 98 Nasal Cannula 2.00 I/O 10/06/17 10/06/17 10/06/17 10/07/17 10/07/17 10/07/17 07:00 15:00 23:00 07:00 15:00 23:00 Intake Total 360 ml 220 ml 2840 ml 60 ml Output Total 620 ml 1500 ml 2000 ml Balance -260 ml 220 ml 1340 ml -1940 ml Intake Oral 360 ml 120 ml 1090 ml 60 ml IV Total 100 ml 1750 ml Output Urine Total 620 ml 1500 ml 2000 ml # Voids 1 Result Diagram: 10/07/17 0650 10/07/17 0650 Objective Remarks GENERAL: This is a well-nourished, well-developed patient, in no apparent distress. CARDIOVASCULAR: Regular rate and rhythm without murmurs, gallops, or rubs. RESPIRATORY: Clear to auscultation. Breath sounds equal bilaterally. No wheezes , rales, or rhonchi. GASTROINTESTINAL: Abdomen soft, non-tender, nondistended. Normal active bowel sounds MUSCULOSKELETAL: Extremities without clubbing, cyanosis, or edema. NEURO: Alert & Oriented x4 to person, place, time, situation. 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 He was recently in the hospital and was discharged couple of days ago. He comes our facility frequently. Continued follow-up clinically with IV hydration, pain management Rule out infectious causes (2) Sepsis ICD Code: A41.9 - Sepsis, unspecified organism Status: Resolved Plan: Worrisome for sepsis due to unknown organism and possible pneumonia? Healthcare associated We will add IV antibiotics (vancomycin and cefepime due to recent hospitalizations, taper as needed) Follow-up counts Sepsis syndrome improved, leukocytosis, heart rate and blood pressure improved Discharge Planning Likely discharge in a.m. on oral antibiotics Norah Rucker MD October 07, 2017 08:40
[2017-10-07] MEDS ORDERED: DOCUSATE SODIUM 50 MG/SENNA 8.6 MG TAB PO PRN (08:45)
[2017-10-07] MEDS ORDERED: PROCHLORPERAZINE INJ 10 MG/2 ML VIAL IV PUSH ONE (09:00)
[2017-10-07] MEDS ORDERED: diphenhydrAMINE HCL 50 MG/ML VIAL IV PUSH ONE (09:00)
[2017-10-07] MEDS: SODIUM CHLORIDE 0.9% FLUSH 10 ML FLUSH IV FLUSH SCH ×2 (09:27→20:20)
[2017-10-07] MEDS ORDERED: PILL SPLITTER OTHER PRN (10:30)
[2017-10-07 12:00] VITALS: BP 95/53; PULSE 82; RESP 19; TEMP 98.4; O2SAT 96
[2017-10-07] MEDS: HYDROmorphone HCL 2 MG TAB PO PRN ×2 (13:29→18:39)
[2017-10-07 13:40] LABS: RETIC # 207.9 MIL/L (20.0-150.0); RETIC % 10.1 % (0.4-3.0)
[2017-10-07 16:00] VITALS: BP 105/57; PULSE 83; RESP 20; TEMP 99.4; O2SAT 100
[2017-10-07 19:58] VITALS: O2SAT 98
[2017-10-07 20:00] VITALS: BP 98/53; PULSE 70; RESP 18; TEMP 98.9; O2SAT 99
[2017-10-07] MEDS: diphenhydrAMINE HCL 25 MG CAP PO PRN (20:43)
[2017-10-07] MEDS: PROCHLORPERAZINE MALEATE 10 MG TAB PO PRN (20:43)
[2017-10-08] VITALS (7 sets, daily range): BP systolic 92–106; BP diastolic 54–68; PULSE 69–86; RESP 14–20; TEMP 98–98.9; O2SAT 90–100
[2017-10-08] MEDS: SODIUM CHLORIDE 0.9% FLUSH 10 ML FLUSH IV FLUSH PRN (01:57)
[2017-10-08] MEDS: SODIUM CHLOR 0.9% 1000 ML INJ 1,000 ML IV SCH ×3 (01:57→17:57)
[2017-10-08] MEDS: VANCOMYCIN INJ 1,000 MG in SODIUM CHLOR 0.9% 250 ML INJ 250 ML IV SCH ×2 (01:57→13:54)
[2017-10-08] MEDS: PROCHLORPERAZINE MALEATE 10 MG TAB PO PRN ×5 (01:58→18:34)
[2017-10-08] MEDS: diphenhydrAMINE HCL 25 MG CAP PO PRN ×6 (01:58→23:25)
[2017-10-08] MEDS: CEFEPIME INJ 1,000 MG in SODIUM CHLORIDE 0.9% INJ 100 ML IV SCH ×3 (05:49→20:43)
[2017-10-08] MEDS: HEPARIN SODIUM - SQ 10,000 UNITS/ML VIAL SQ SCH ×3 (05:51→20:47)
[2017-10-08] MEDS: HYDROmorphone HCL 2 MG TAB PO PRN ×3 (08:36→17:43)
[2017-10-08] MEDS: SODIUM CHLORIDE 0.9% FLUSH 10 ML FLUSH IV FLUSH SCH ×2 (09:00→20:52)
[2017-10-08] MEDS: FOLIC ACID 1 MG TAB PO SCH (10:31)
[2017-10-08 10:34] LABS: HEMOGLOBIN 7.2 GM/DL (13.0-17.0); MEAN CELL VOLUME 100.2 FL (80.0-100.0); MEAN CORPUSCULAR HEMOGLOBIN 35.4 PG (27.0-34.0); MEAN CORPUSCULAR HGB CONC 35.3 % (32.0-36.0); MEAN PLATELET VOLUME 8.9 FL (7.0-11.0); PLATELET COUNT 278 TH/MM3 (150-450); RED BLOOD COUNT 2.03 MIL/MM3 (4.50-5.90); RED CELL DISTRIBUTION WIDTH 25.6 % (11.6-17.2); WHITE BLOOD COUNT 12.5 TH/MM3 (4.0-11.0)
[2017-10-08 11:10] LABS: CORRECTED NUCLEATED RBC 32 /100 WBC (0-0); CORRECTED WBC 9.5 TH/MM3 (4.0-11.0); LYMPHOCYTES 63 % (9-44); MONOCYTES 5 % (0-8); NEUTROPHIL # MANUAL DIFF 2.3 TH/MM3 (1.8-7.7); NUCLEATED RED BLOOD CELL 32 (0-0); POLYS (SEG NEUTROPHILS) 24 % (16-70)
[2017-10-08 11:11] LABS: KERATOCYTES OCC (NORMAL); OVALOCYTES 1+ (NORMAL); SICKLE CELLS 2+ (NORMAL); TARGET CELLS 2+ (NORMAL)
--- NOTE | 2017-10-08 12:19 | HHI.PR ---
Subjective Remarks Seen and evaluated today in follow-up for possible sepsis with sickle cell disease Currently tolerating antibiotics without difficulty. Leukocytosis improved and stable. Tachycardia improved. Blood pressure still marginal. Patient complaining of pain Objective Vitals Vital Signs Date Time Temp Pulse Resp B/P (MAP) Pulse Ox O2 Delivery O2 Flow Rate FiO2 10/08/17 11:03 18 10/08/17 08:57 98.0 78 14 101/68 (79) 100 10/08/17 08:00 100 Nasal Cannula 2.00 10/08/17 00:00 98.9 69 18 93/54 (67) 99 10/07/17 20:00 98.9 70 18 98/53 (68) 99 10/07/17 19:58 98 Nasal Cannula 2.00 10/07/17 16:00 99.4 83 20 105/57 (73) 100 I/O 10/07/17 10/07/17 10/07/17 10/08/17 10/08/17 10/08/17 07:00 15:00 23:00 07:00 15:00 23:00 Intake Total 60 ml 120 ml 240 ml 2010 ml Output Total 2000 ml 600 ml 1650 ml 650 ml Balance -1940 ml 120 ml -360 ml 360 ml -650 ml Intake Oral 60 ml 120 ml 240 ml IV Total 2010 ml Output Urine Total 2000 ml 600 ml 1650 ml 650 ml # Voids 1 4 Result Diagram: 10/08/17 1015 10/07/17 0650 Objective Remarks GENERAL: This is a well-nourished, well-developed patient, in no apparent distress. CARDIOVASCULAR: Regular rate and rhythm without murmurs, gallops, or rubs. RESPIRATORY: Clear to auscultation. Breath sounds equal bilaterally. No wheezes , rales, or rhonchi. GASTROINTESTINAL: Abdomen soft, non-tender, nondistended. Normal active bowel sounds MUSCULOSKELETAL: Extremities without clubbing, cyanosis, or edema. NEURO: Alert & Oriented x4 to person, place, time, situation. 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 He was recently in the hospital and was discharged couple of days ago. He comes our facility frequently. Continued follow-up clinically with IV hydration, po pain management Rule out infectious causes Continue folic acid (2) Sepsis ICD Code: A41.9 - Sepsis, unspecified organism Status: Resolved Plan: Worrisome for sepsis due to unknown organism and possible pneumonia ( Healthcare associated) We will continue IV antibiotics (vancomycin and cefepime due to recent hospitalizations, taper as needed) Follow-up counts Sepsis syndrome improved, leukocytosis, heart rate and blood pressure improved Repeat chest x-ray today Discharge Planning Likely discharge in 1-2 days on oral antibiotics Norah Rucker MD October 08, 2017 12:19
--- NOTE | 2017-10-08 13:29 | RADRPT ---
EXAM DATE/TIME: 10/08/2017 12:53 [facility] COMPARISON: CHEST PA & LAT, June 10, 2017, 12:05. INDICATIONS : Chest pain. MEDICAL HISTORY : Sickle Cell disease. SURGICAL HISTORY : Cholecystectomy. [place] ENCOUNTER: Subsequent ACUITY: 3 days PAIN SCORE: 3/10 LOCATION: Bilateral chest FINDINGS: PA and lateral views of the chest demonstrate the lungs to be symmetrically aerated without evidence of mass, infiltrate or effusion. [id number] in good position. The cardiomediastinal contours are unremarkable. Osseous structures are intact. CONCLUSION: Negative for acute process. Huang Garland MD FACR on October 08, 2017 at 13:26 Board Certified Radiologist. This report was verified electronically.
[2017-10-08 14:01] LABS: RETIC # 165.1 MIL/L (20.0-150.0); RETIC % 8.2 % (0.4-3.0)
--- NOTE | 2017-10-08 18:31 | PD.CONS ---
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 Primary Care Physician Non-Staff Diagnoses: History of Present Illness Chief complaint: Severe pain involving multiple joints. Shortness of breath. History of presenting illness: Andie Alicia is a 32-year-old male with a diagnosis of hemoglobin sickle cell disease, he has frequent pain crises and has required multiple hospitalizations both at this facility as well as the [facility] in [place]. The patient is under the care of a tea and spice supervisor in [place], [place] and has been on disease modifying therapy with hydroxyurea at a dose of 1000 mg once daily. Despite this the patient has required hospitalizations almost every 2 weeks at various hospitals in this area. 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 The patient has been on both long and short acting opioids for management of his pain. The most recent pain crisis started a few days ago, the patient reports his pain rapidly progressed from being limited to his knees 2 involving multiple joints in his lower extremities, his lower back as well as his chest. He tells me he feels short of breath, O2 saturations have been over 95% on room air. His hemoglobin and hematocrit appear to be at baseline. The hematology service has been asked to see him to help manage his pain crisis. Review of Systems Constitutional: COMPLAINS OF: Fatigue, DENIES: Diaphoretic episodes, Fever, Weight gain, Weight loss, Chills, Dizziness, Change in appetite, Night Sweats Endocrine: DENIES: Heat/cold intolerance, Polydipsia, Polyuria, Polyphagia Eyes: DENIES: Blurred vision, Diplopia, Eye inflammation, Eye pain, Vision loss , Photosensitivity, Double Vision Ears, nose, mouth, throat: COMPLAINS OF: Throat pain, DENIES: Tinnitus, Hearing loss, Vertigo, Nasal discharge, Oral lesions, Hoarseness, Ear Pain, Running Nose, Epistaxis, Sinus Pain, Toothache, Odynophagia Respiratory: COMPLAINS OF: Shortness of breath, DENIES: Apneas, Cough, Snoring , Wheezing, Hemoptysis, Sputum production Cardiovascular: COMPLAINS OF: Chest pain, Dyspnea on Exertion, DENIES: Palpitations, Syncope, PND, Lower Extremity Edema, Orthopnea, Claudication Gastrointestinal: DENIES: Abdominal pain, Black stools, Bloody stools, Constipation, Diarrhea, Nausea, Vomiting, Difficulty Swallowing, Anorexia Genitourinary: DENIES: Sexual dysfunction, Urinary frequency, Urinary incontinence, Urgency, Hematuria, Dysuria, Nocturia, Penile Discharge, Testicular Pain, Testicular Swelling Musculoskeletal: COMPLAINS OF: Joint pain, Muscle aches, Stiffness, Back pain, DENIES: Joint Swelling, Neck pain Integumentary: DENIES: Abnormal pigmentation, Nail changes, Pruritus, Rash Hematologic/lymphatic: DENIES: Bruising, Lymphadenopathy Immunologic/allergic: DENIES: Eczema, Urticaria Neurologic: COMPLAINS OF: Abnormal gait, DENIES: Headache, Localized weakness, Paresthesias, Seizures, Speech Problems, Tremor, Poor Balance Psychiatric: COMPLAINS OF: Anxiety, DENIES: Confusion, Mood changes, Depression , Hallucinations, Agitation, Suicidal Ideation, Homicidal Ideation, Delusions Except as stated in HPI: all other systems reviewed are Neg Past Family Social History Allergies: Coded Allergies: No Known Allergies (Unverified Allergy, Unknown, 10/05/17) Past Medical History Hemoglobin sickle cell disease. Recurrent pain crises Chronic anemia Past Surgical History Infusion port placement Cholecystectomy Knee surgery Active Ordered Medications Cefepime 1 g IV every 8 hours Normal saline 150 cc an hour Vancomycin 1 g IV every 12 hours Tylenol 650 mg p.o. every 4 hours as needed for temperature greater than 100.4F Benadryl 25 mg p.o. every 4 hours needed for itching Folic acid 1 mg p.o. daily Heparin 5000 units subcu every 8 hours Hydromorphone 2 mg p.o. every 4 hours needed for breakthrough pain Ketorolac 15 mg IV every 6 hours needed for pain Oxycodone 5 mg p.o. every 4 hours as needed for pain scale 3-5. Oxycodone 10 mg p.o. every 4 hours needed for pain scale 6-10. Compazine 10 mg p.o. every 4 hours needed for nausea and Family History Sickle cell trait. No known oncologic diagnoses in the family. Social History Patient is , he lives at home with his , he has 2 young children. He works at a [employer]. He denies alcohol or tobacco abuse or illicit drug use. Physical Exam Vital Signs Vital Signs Date Time Temp Pulse Resp B/P (MAP) Pulse Ox O2 Delivery O2 Flow Rate FiO2 10/08/17 16:26 98.1 70 16 97/63 (74) 94 10/08/17 15:00 18 10/08/17 14:05 18 10/08/17 13:11 98.6 74 16 92/61 (71) 94 10/08/17 08:57 98.0 78 14 101/68 (79) 100 10/08/17 08:00 100 Nasal Cannula 2.00 10/08/17 00:00 98.9 69 18 93/54 (67) 99 10/07/17 20:00 98.9 70 18 98/53 (68) 99 10/07/17 19:58 98 Nasal Cannula 2.00 Physical Exam GENERAL: Young man laying in bed, appears to be no acute distress. SKIN: No rashes, ecchymoses or lesions. Cool and dry. HEAD: Atraumatic. Normocephalic. No temporal or scalp tenderness. EYES: Pupils equal round and reactive. Extraocular motions intact. No injection or drainage. Conjunctivae are pale sclerae are anicteric. ENT: Nose without bleeding, purulent drainage or septal hematoma. Throat without erythema, tonsillar hypertrophy or exudate. Uvula midline. Airway patent. NECK: Trachea midline. No JVD or lymphadenopathy. Supple, nontender, no meningeal signs. CARDIOVASCULAR: Regular rate and rhythm without murmurs, gallops, or rubs. RESPIRATORY: Clear to auscultation. Breath sounds equal bilaterally. No wheezes , rales, or rhonchi. GASTROINTESTINAL: Abdomen soft, non-tender, nondistended. No hepato-splenomegaly , or palpable masses. No guarding. MUSCULOSKELETAL: Generally decreased muscle mass, tenderness reported over the lower back and over the shins and thighs. NEUROLOGICAL: Awake and alert. Cranial nerves II through XII intact. Motor and sensory grossly within normal limits. Five out of 5 muscle strength in all muscle groups. Normal speech. Laboratory Laboratory Tests Test 10/08/17 10:15 White Blood Count 12.5 Corrected White Blood Count 9.5 Red Blood Count 2.03 Hemoglobin 7.2 Hematocrit 21.0 Mean Corpuscular Volume 100.2 Mean Corpuscular Hemoglobin 35.4 Mean Corpuscular Hemoglobin Concent 35.3 Red Cell Distribution Width 25.6 Platelet Count 278 Mean Platelet Volume 8.9 CBC Comment AUTO DIFF Differential Total Cells Counted 100 Neutrophils % (Manual) 24 Lymphocytes % 63 Monocytes % 5 Eosinophils % 8 Neutrophils # (Manual) 2.3 Nucleated Red Blood Cells 32 Differential Comment FINAL DIFF MANUAL Platelet Estimate NORMAL Platelet Morphology Comment NORMAL Sickle Cells 2+ Target Cells 2+ Ovalocytes 1+ Keratocytes OCC Reticulocyte Count 8.2 Absolute Reticulocyte Count 165.1 Result Diagram: 10/08/17 1015 10/07/17 0650 Imaging Chest x-ray dated 10/08: No acute process is identified. Assessment and Plan Assessment and Plan 32-year-old man with a diagnosis of hemoglobin sickle cell disease associated with frequent pain crises. He has been on outpatient low-dose hydroxyurea 1000 mg daily which he tells me he has been very compliant with. The patient on average requires hospitalization every 2-3 weeks, this I believe is his third or fourth hospitalization this year at this facility alone. He tells me he also seeks care at additional hospital facilities and emergency departments in the area for management of his pain crises. At today's visit I talked to the patient extensively about his suboptimal disease control and pain control. I explained to the patient that there are various treatment options available for him to consider for management of his pain. These include but are not limited to use of medical cannabis through a licensed provider. I did provide him with the name and phone number of a well respected local physician who is is specialized in medical cannabis therapy. I also talked to the patient about therapeutic exchange transfusions about once a month for management and prevention of pain crises. I have explained to the patient that additional treatment options exist as well but he needs to talk to his tea and spice supervisor about his frequent pain crises. From talking the patient it appears his primary tea and spice supervisor does not know the extent of his hospitalizations. Plan: 1. Sickle cell pain crisis uncomplicated by acute chest syndrome, stroke, priapism or avascular necrosis: I would recommend hydration with a hypotonic saline solution. Continue oral analgesics; I will add on a long-acting morphine at a dose of morphine sulfate ER 30 mg p.o. twice daily. Incentive spirometer will be ordered as well. Repeat blood work periodically. I would transfuse to help manage complications of his pain crisis such as suspected avascular necrosis, priapism, acute chest syndrome or if he develops cardiovascular symptoms such as progressive difficulty breathing or tachycardia. Continue ongoing care. Hematology service to follow along with you. Discussed Condition With The patient. Ross Toussaint MD October 08, 2017 18:31
[2017-10-08] MEDS: SODIUM CHLOR 0.45% 1000 ML INJ 1,000 ML IV SCH (20:42)
[2017-10-08] MEDS: MORPHINE SULFATE 30 MG CONTROLLED RELEASE TAB PO SCH (20:51)
[2017-10-09 00:33] VITALS: BP 114/68; PULSE 79; RESP 20; TEMP 98.1; O2SAT 96
[2017-10-09] MEDS: HYDROmorphone HCL 2 MG TAB PO PRN ×2 (02:16→08:39)
[2017-10-09] MEDS: VANCOMYCIN INJ 1,000 MG in SODIUM CHLOR 0.9% 250 ML INJ 250 ML IV SCH (02:17)
[2017-10-09] MEDS: SODIUM CHLOR 0.45% 1000 ML INJ 1,000 ML IV SCH ×4 (02:17→22:47)
[2017-10-09] MEDS: CEFEPIME INJ 1,000 MG in SODIUM CHLORIDE 0.9% INJ 100 ML IV SCH ×2 (05:28→12:44)
[2017-10-09] MEDS: diphenhydrAMINE HCL 25 MG CAP PO PRN ×2 (05:31→09:50)
[2017-10-09] MEDS: HEPARIN SODIUM - SQ 10,000 UNITS/ML VIAL SQ SCH ×3 (05:32→21:05)
[2017-10-09 07:05] LABS: HEMATOCRIT 21.8 % (39.0-51.0); HEMOGLOBIN 7.2 GM/DL (13.0-17.0); MEAN CELL VOLUME 99.3 FL (80.0-100.0); MEAN CORPUSCULAR HEMOGLOBIN 32.7 PG (27.0-34.0); MEAN CORPUSCULAR HGB CONC 32.9 % (32.0-36.0); PLATELET COUNT 343 TH/MM3 (150-450); RED BLOOD COUNT 2.19 MIL/MM3 (4.50-5.90); RED CELL DISTRIBUTION WIDTH 23.3 % (11.6-17.2); WHITE BLOOD COUNT 12.9 TH/MM3 (4.0-11.0)
[2017-10-09] MEDS: MORPHINE SULFATE 30 MG CONTROLLED RELEASE TAB PO SCH (08:36)
[2017-10-09] MEDS: FOLIC ACID 1 MG TAB PO SCH (08:36)
[2017-10-09] MEDS: SODIUM CHLORIDE 0.9% FLUSH 10 ML FLUSH IV FLUSH SCH ×2 (09:00→21:06)
[2017-10-09 09:27] VITALS: BP 102/67; PULSE 70; RESP 16; TEMP 97.1; O2SAT 70; O2SAT 98
[2017-10-09] MEDS: PROCHLORPERAZINE MALEATE 10 MG TAB PO PRN (09:50)
[2017-10-09] MEDS ORDERED: MORPHINE SULFATE 15 MG TAB PO PRN (10:15)
[2017-10-09 12:56] VITALS: BP 106/63; PULSE 79; RESP 16; TEMP 98.1; O2SAT 98
--- NOTE | 2017-10-09 12:59 | HHI.PR ---
Subjective Remarks Patient seen and evaluated today in follow-up for cell disease with pain crisis. Hemoglobin remained stable. No further new complaints. Tolerating oral antibiotics and oral medicine well. Patient resistant to discharge planning Objective Vitals Vital Signs Date Time Temp Pulse Resp B/P (MAP) Pulse Ox O2 Delivery O2 Flow Rate FiO2 10/09/17 09:39 18 10/09/17 09:39 18 10/09/17 09:27 97.1 70 16 102/67 (79) 70 10/09/17 00:33 98.1 79 20 114/68 (83) 96 10/08/17 20:07 98.8 86 20 106/56 (73) 95 10/08/17 19:30 90 21 10/08/17 16:26 98.1 70 16 97/63 (74) 94 10/08/17 15:00 18 10/08/17 13:11 98.6 74 16 92/61 (71) 94 I/O 10/08/17 10/08/17 10/08/17 10/09/17 10/09/17 10/09/17 07:00 15:00 23:00 07:00 15:00 23:00 Intake Total 2010 ml 3328 ml 1575 ml Output Total 1650 ml 650 ml 1500 ml 2100 ml 400 ml Balance 360 ml -650 ml 1828 ml -525 ml -400 ml Intake Oral 1000 ml IV Total 2010 ml 2328 ml 1575 ml Output Urine Total 1650 ml 650 ml 1500 ml 2100 ml 400 ml # Voids 4 3 2 # Bowel Movements 1 1 Result Diagram: 10/09/17 0625 10/07/17 0650 Imaging Last Impressions Chest X-Ray 10/08/17 0000 Signed Impressions: Service Date/Time: Sunday, October 08, 2017 12:53 - CONCLUSION: Negative for acute process. Huang Garland MD FACR Objective Remarks GENERAL: This is a well-nourished, well-developed patient, in no apparent distress. CARDIOVASCULAR: Regular rate and rhythm without murmurs, gallops, or rubs. RESPIRATORY: Clear to auscultation. Breath sounds equal bilaterally. No wheezes , rales, or rhonchi. GASTROINTESTINAL: Abdomen soft, non-tender, nondistended. Normal active bowel sounds MUSCULOSKELETAL: Extremities without clubbing, cyanosis, or edema. NEURO: Alert & Oriented x4 to person, place, time, situation. Moves all ext x4 A/P Problem List: (1) Sickle cell anemia ICD Code: D57.1 - Sickle-cell disease without crisis Status: Chronic Plan: Improved overall Tolerating oral medications difficulty. Hemoglobin remained stable (2) Sepsis ICD Code: A41.9 - Sepsis, unspecified organism Status: Resolved Plan: Resolving De-escalate antibiotics Discharge Planning Likely discharge in 1-2 days on oral antibiotics if needed Norah Rucker MD October 09, 2017 12:59
[2017-10-09 15:20] VITALS: O2SAT 100
[2017-10-09 16:55] VITALS: BP 122/72; PULSE 75; RESP 17; TEMP 98.1; O2SAT 98
[2017-10-09] MEDS: HYDROmorphone HCL 2 MG TAB PO SCH (17:57)
[2017-10-09] MEDS ORDERED: SODIUM CHLORIDE 0.9% IV ONE (18:00)
[2017-10-09] MEDS ORDERED: HYDROMORPHONE IV ONE (18:00)
[2017-10-09 20:00] VITALS: BP 109/63; PULSE 79; RESP 18; TEMP 98.2; O2SAT 100
[2017-10-09] MEDS: AMOXICILLIN/CLAVULANATE K 500 MG TAB PO SCH (21:05)
[2017-10-10] VITALS (7 sets, daily range): BP systolic 100–117; BP diastolic 59–68; PULSE 65–79; RESP 18–20; TEMP 97.2–98.2; O2SAT 99–100
[2017-10-10] MEDS: PROCHLORPERAZINE MALEATE 10 MG TAB PO PRN ×4 (00:07→21:20)
[2017-10-10] MEDS: HYDROmorphone HCL 2 MG TAB PO SCH ×4 (00:07→17:47)
[2017-10-10] MEDS: diphenhydrAMINE HCL 25 MG CAP PO PRN ×4 (00:49→21:20)
[2017-10-10] MEDS: oxyCODONE/ACETAMINOPHEN 7.5 MG/325 MG TAB PO PRN ×3 (03:38→21:21)
[2017-10-10] MEDS: SODIUM CHLOR 0.45% 1000 ML INJ 1,000 ML IV SCH ×3 (06:11→21:20)
[2017-10-10] MEDS: HEPARIN SODIUM - SQ 10,000 UNITS/ML VIAL SQ SCH ×3 (06:11→21:20)
[2017-10-10] MEDS: SODIUM CHLORIDE 0.9% FLUSH 10 ML FLUSH IV FLUSH PRN (06:12)
[2017-10-10 06:47] LABS: HEMATOCRIT 21.6 % (39.0-51.0); HEMOGLOBIN 7.1 GM/DL (13.0-17.0); MEAN CELL VOLUME 99.5 FL (80.0-100.0); MEAN CORPUSCULAR HEMOGLOBIN 32.9 PG (27.0-34.0); MEAN CORPUSCULAR HGB CONC 33.1 % (32.0-36.0); MEAN PLATELET VOLUME 8.3 FL (7.0-11.0); PLATELET COUNT 353 TH/MM3 (150-450); RED BLOOD COUNT 2.17 MIL/MM3 (4.50-5.90); RED CELL DISTRIBUTION WIDTH 22.2 % (11.6-17.2)
[2017-10-10 07:07] LABS: CALCIUM 8.4 MG/DL (8.5-10.1)
[2017-10-10 07:08] LABS: BICARBONATE 31.3 MEQ/L (21.0-32.0)
[2017-10-10 07:11] LABS: CREATININE 0.5 MG/DL (0.60-1.30)
[2017-10-10 07:38] LABS: RETIC # 165.8 MIL/L (20.0-150.0)
[2017-10-10 07:42] LABS: CORRECTED NUCLEATED RBC 21 /100 WBC (0-0); CORRECTED WBC 9.9 TH/MM3 (4.0-11.0); LYMPHOCYTES 38 % (9-44); MONOCYTES 10 % (0-8); NEUTROPHIL # MANUAL DIFF 4.6 TH/MM3 (1.8-7.7); NUCLEATED RED BLOOD CELL 21 (0-0); POLYS (SEG NEUTROPHILS) 46 % (16-70)
[2017-10-10 07:44] LABS: KERATOCYTES OCC (NORMAL); OVALOCYTES 1+ (NORMAL); SICKLE CELLS 1+ (NORMAL); TARGET CELLS 1+ (NORMAL)
[2017-10-10] MEDS ORDERED: HYDROmorphone HCL PF 2 MG/ML VIAL IV PUSH SCH (09:00)
[2017-10-10] MEDS: SODIUM CHLORIDE 0.9% FLUSH 10 ML FLUSH IV FLUSH SCH ×2 (09:00→21:22)
--- NOTE | 2017-10-10 11:41 | HHI.PR ---
Subjective Remarks Patient seen and evaluated today. Appears pale today. Not complaining of pain. Some hypoxemia yesterday and 90% Objective Vitals Vital Signs Date Time Temp Pulse Resp B/P (MAP) Pulse Ox O2 Delivery O2 Flow Rate FiO2 10/10/17 07:50 97.4 75 20 100/59 (73) 100 10/10/17 07:12 20 10/10/17 04:38 20 10/10/17 00:00 97.2 79 18 110/68 (82) 100 10/09/17 20:00 98.2 79 18 109/63 (78) 100 10/09/17 20:00 100 Nasal Cannula 4.00 10/09/17 17:54 17 10/09/17 16:55 98.1 75 17 122/72 (89) 98 10/09/17 15:20 100 Nasal Cannula 2.00 10/09/17 13:32 18 10/09/17 12:56 98.1 79 16 106/63 (77) 98 I/O 10/09/17 10/09/17 10/09/17 10/10/17 10/10/17 10/10/17 07:00 15:00 23:00 07:00 15:00 23:00 Intake Total 1575 ml 1420 ml Output Total 2100 ml 1400 ml 1500 ml 2000 ml Balance -525 ml -1400 ml -80 ml -2000 ml Intake Oral 1420 ml IV Total 1575 ml Output Urine Total 2100 ml 1400 ml 1500 ml 2000 ml # Voids 2 # Bowel Movements 1 3 1 Result Diagram: 10/10/17 0630 10/10/17 0630 Objective Remarks GENERAL: This is a well-nourished, well-developed patient, pale CARDIOVASCULAR: Regular rate and rhythm without murmurs, gallops, or rubs. RESPIRATORY: Clear to auscultation. Breath sounds equal bilaterally. No wheezes , rales, or rhonchi. GASTROINTESTINAL: Abdomen soft, non-tender, nondistended. Normal active bowel sounds MUSCULOSKELETAL: Extremities without clubbing, cyanosis, or edema. NEURO: Alert & Oriented x4 to person, place, time, situation. Moves all ext x4 A/P Problem List: (1) Sickle cell anemia ICD Code: D57.1 - Sickle-cell disease without crisis Status: Chronic Plan: Follow repeat CBC and type and screen patient Tolerating oral medications difficulty. Hemoglobin a bit lower today (2) Sepsis ICD Code: A41.9 - Sepsis, unspecified organism Status: Resolved Plan: Resolving De-escalate antibiotics Discharge Planning Follow-up hemoglobin, re-eval in Norah Morales MD October 10, 2017 11:41
[2017-10-10] MEDS: FOLIC ACID 1 MG TAB PO SCH (11:55)
[2017-10-10] MEDS: AMOXICILLIN/CLAVULANATE K 500 MG TAB PO SCH ×2 (11:56→21:20)
--- NOTE | 2017-10-10 20:55 | PD.ONC.PN ---
Subjective Subjective Remarks appears very drowsy says that he needs IV pain meds spoke with RN who stated that patient has been asking for pain meds constantly and also demanding to be given Benadryl and compazine along with pain meds he has been constantly sleeping denies any dyspnea no fevers says he has pain in his joints Objective Data Date Time Temp Pulse Resp B/P (MAP) Pulse Ox O2 Delivery O2 Flow Rate FiO2 10/10/17 15:36 98.2 68 20 104/61 (75) 100 10/10/17 11:30 97.7 65 20 109/60 (76) 100 10/10/17 08:00 100 Nasal Cannula 2.00 10/10/17 07:50 97.4 75 20 100/59 (73) 100 10/10/17 07:12 20 10/10/17 04:38 20 10/10/17 00:00 97.2 79 18 110/68 (82) 100 10/10/17 10/10/17 10/10/17 07:00 15:00 23:00 Intake Total 1000 ml 360 ml Output Total 2000 ml 3150 ml Balance -2000 ml 1000 ml -2790 ml Result Diagram: 10/10/17 0630 10/10/17 0630 Laboratory Results Laboratory Tests Test 10/10/17 06:30 White Blood Count 12.0 TH/MM3 Corrected White Blood Count 9.9 TH/MM3 Red Blood Count 2.17 MIL/MM3 Hemoglobin 7.1 GM/DL Hematocrit 21.6 % Mean Corpuscular Volume 99.5 FL Mean Corpuscular Hemoglobin 32.9 PG Mean Corpuscular Hemoglobin Concent 33.1 % Red Cell Distribution Width 22.2 % Platelet Count 353 TH/MM3 Mean Platelet Volume 8.3 FL CBC Comment AUTO DIFF Differential Total Cells Counted 100 Neutrophils % (Manual) 46 % Lymphocytes % 38 % Monocytes % 10 % Eosinophils % 6 % Neutrophils # (Manual) 4.6 TH/MM3 Nucleated Red Blood Cells 21 /100 WBC Differential Comment FINAL DIFF MANUAL Platelet Estimate NORMAL Platelet Morphology Comment NORMAL Sickle Cells 1+ Target Cells 1+ Ovalocytes 1+ Keratocytes OCC Reticulocyte Count 8.0 % Absolute Reticulocyte Count 165.8 MIL/L Blood Urea Nitrogen 5 MG/DL Creatinine 0.50 MG/DL Random Glucose 79 MG/DL Calcium Level 8.4 MG/DL Lactate Dehydrogenase 305 U/L Sodium Level 141 MEQ/L Potassium Level 3.5 MEQ/L Chloride Level 104 MEQ/L Carbon Dioxide Level 31.3 MEQ/L Anion Gap 6 MEQ/L Estimat Glomerular Filtration Rate 231 ML/MIN Administered Medications Medications (Trade) Dose Ordered Sig/Thomas Route PRN Reason Start Time Stop Time Status Last Admin Dose Admin Sodium Chloride (NS Flush) 2 ml UNSCH PRN IV FLUSH FLUSH AFTER USING IV ACCESS 10/05/17 17:45 10/10/17 06:12 Sodium Chloride (NS Flush) 2 ml BID IV FLUSH 10/05/17 21:00 10/09/17 21:06 Heparin Sodium (Porcine) (Heparin Inj) 5,000 units Q8HR SQ 10/06/17 14:00 10/10/17 13:32 Prochlorperazine Maleate (Compazine) 10 mg Q4H PRN PO nausea 10/07/17 08:45 10/10/17 15:15 Diphenhydramine HCl (Benadryl) 25 mg Q4H PRN PO itching 10/07/17 08:45 10/10/17 15:15 Folic Acid (Folate) 1 mg DAILY PO 10/08/17 11:00 10/10/17 11:55 Sodium Chloride 1,000 ml @ 125 mls/hr Q8H IV 10/08/17 18:45 10/10/17 13:32 Amoxicillin/ Clavulanate Potassium (Augmentin) 500 mg Q12HR PO 10/09/17 21:00 10/10/17 11:56 Oxycodone/ Acetaminophen (Percocet 7.5-325 Mg) 1 tab Q6H PRN PO breakthrough pain 10/09/17 15:45 10/10/17 15:15 Hydromorphone HCl (Dilaudid) 2 mg Q6HR PO 10/09/17 18:00 10/10/17 17:47 Objective Remarks GENERAL: nad, drowsy SKIN: Warm and dry. LYMPHATIC: No adenopathy. CARDIOVASCULAR: Regular rate and rhythm without murmurs. RESPIRATORY: Breath sounds equal bilaterally. No accessory muscle use. GASTROINTESTINAL: Abdomen soft, non-tender, nondistended. EXTREMITIES: No cyanosis, or edema. Assessment/Plan Problem List: (1) Sickle cell crisis ICD Codes: D57.00 - Hb-SS disease with crisis, unspecified Status: Acute (2) Atypical pneumonia ICD Codes: J18.9 - Pneumonia, unspecified organism Status: Resolved (3) Sickle cell anemia ICD Codes: D57.1 - Sickle-cell disease without crisis Status: Chronic Assessment 32 y/o with sickle cell crisis, hx of multiple recurrent hospitalizations and has been non-compliant with f/u with his applique cutter in [place] 1. SS crisis - exhibiting narcotic seeking behavior and very drowsy. avoid IV narcotics. continue with po pain meds - Hb low 7. O2 sat in the high 90's. no pRBC supprot today - daily CBC , check retic count/LDH and t.bili tomorrow - daily folic acid - IVF @75 cc/hr - incentive spirometry Tate Morris MD October 10, 2017 20:55
[2017-10-11] VITALS: BP 113/75; PULSE 76; RESP 18; TEMP 98.1; O2SAT 100
[2017-10-11] MEDS: HYDROmorphone HCL 2 MG TAB PO SCH ×3 (00:33→11:23)
[2017-10-11] MEDS: SODIUM CHLOR 0.45% 1000 ML INJ 1,000 ML IV SCH (04:49)
[2017-10-11 05:10] LABS: HEMATOCRIT 21.5 % (39.0-51.0); HEMOGLOBIN 7.2 GM/DL (13.0-17.0); MEAN CELL VOLUME 100.6 FL (80.0-100.0); MEAN CORPUSCULAR HEMOGLOBIN 33.8 PG (27.0-34.0); MEAN CORPUSCULAR HGB CONC 33.6 % (32.0-36.0); MEAN PLATELET VOLUME 8.1 FL (7.0-11.0); PLATELET COUNT 285 TH/MM3 (150-450); RED BLOOD COUNT 2.14 MIL/MM3 (4.50-5.90); RED CELL DISTRIBUTION WIDTH 20.8 % (11.6-17.2); WHITE BLOOD COUNT 11.2 TH/MM3 (4.0-11.0)
[2017-10-11] MEDS: PROCHLORPERAZINE MALEATE 10 MG TAB PO PRN (05:10)
[2017-10-11] MEDS: diphenhydrAMINE HCL 25 MG CAP PO PRN ×2 (05:10→11:24)
[2017-10-11] MEDS: HEPARIN SODIUM - SQ 10,000 UNITS/ML VIAL SQ SCH ×2 (05:10→14:00)
[2017-10-11 05:26] LABS: TOTAL BILIRUBIN ADULT 1.5 MG/DL (0.2-1.0)
[2017-10-11 05:27] LABS: CORRECTED NUCLEATED RBC 5 /100 WBC (0-0); CORRECTED WBC 10.7 TH/MM3 (4.0-11.0); LYMPHOCYTES 24 % (9-44); MONOCYTES 7 % (0-8); NUCLEATED RED BLOOD CELL 5 (0-0); POLYS (SEG NEUTROPHILS) 65 % (16-70)
[2017-10-11 05:28] LABS: HOWELL-JOLLY BODIES PRESENT (NONE SEEN); OVALOCYTES 1+ (NORMAL); SICKLE CELLS 1+ (NORMAL); TARGET CELLS 1+ (NORMAL)
[2017-10-11 07:30] VITALS: BP 99/61; PULSE 71; RESP 20; TEMP 97.8; O2SAT 100
[2017-10-11 08:14] VITALS: O2SAT 100
[2017-10-11] MEDS: SODIUM CHLORIDE 0.9% FLUSH 10 ML FLUSH IV FLUSH SCH (09:00)
[2017-10-11] MEDS: AMOXICILLIN/CLAVULANATE K 500 MG TAB PO SCH (09:08)
[2017-10-11] MEDS: oxyCODONE/ACETAMINOPHEN 7.5 MG/325 MG TAB PO PRN (09:08)
[2017-10-11] MEDS: FOLIC ACID 1 MG TAB PO SCH (09:08)
[2017-10-11 10:55] LABS: RETIC # 154.6 MIL/L (20.0-150.0); RETIC % 7.7 % (0.4-3.0)
[2017-10-11 11:00] VITALS: BP 113/56; PULSE 65; RESP 20; TEMP 98.4; O2SAT 100
[2017-10-11] MEDS ORDERED: BENA25CA4 PO (11:02)
[2017-10-11] MEDS ORDERED: PROC10TA PO (11:02)
[2017-10-11] MEDS ORDERED: TYLETAB34 PO (11:02)
--- NOTE | 2017-10-11 11:03 | HHI.DCPOC ---
Discharge Care Plan Diagnosis: (1) Atypical pneumonia (2) Sickle cell anemia Goals to Promote Your Health * To prevent worsening of your condition and complications * To maintain your health at the optimal level Directions to Meet Your Goals Take your medications as prescribed Follow your dietary instruction Follow activity as directed Keep your appointments as scheduled Take your immunizations and boosters as scheduled If your symptoms worsen call your PCP, if no PCP go to Urgent Care Center or Emergency Room Smoking is Dangerous to Your Health. Avoid second hand smoke Call the 24-hour hour crisis hotline for domestic abuse at Norah Rucker MD October 11, 2017 11:03
--- NOTE | 2017-10-11 11:04 | HHI.DS ---
Discharge Summary Admission Date October 05, 2017 at 19:46 Discharge Date: October 11, 2017 Admitting Diagnosis (1) Sickle cell anemia ICD Code: D57.1 - Sickle-cell disease without crisis Status: Chronic (2) Sepsis ICD Code: A41.9 - Sepsis, unspecified organism Status: Resolved Procedures None Brief History - From Admission This patient is a 32-year-old gentleman with a known history of sickle cell disease and anemia. Patient does complain of increased severe severe joint pain and increased cough and shortness of breath over the last several days. Patient says he has had Dilaudid at home without improvement in the discomfort. He denies any fevers or chills. He presents with elevated white cell count, elevated heart rate and imaging which supports a right upper lobe consolidation. Patient's been admitted to the hospital for further evaluation and treatment of sickle cell disease with possible pneumonia. CBC/BMP: 10/11/17 0455 10/10/17 0630 Significant Findings Laboratory Tests Test 10/09/17 06:25 10/10/17 06:30 10/11/17 04:55 White Blood Count 12.9 TH/MM3 (4.0-11.0) 12.0 TH/MM3 (4.0-11.0) 11.2 TH/MM3 (4.0-11.0) Red Blood Count 2.19 MIL/MM3 (4.50-5.90) 2.17 MIL/MM3 (4.50-5.90) 2.14 MIL/MM3 (4.50-5.90) Hemoglobin 7.2 GM/DL (13.0-17.0) 7.1 GM/DL (13.0-17.0) 7.2 GM/DL (13.0-17.0) Hematocrit 21.8 % (39.0-51.0) 21.6 % (39.0-51.0) 21.5 % (39.0-51.0) Red Cell Distribution Width 23.3 % (11.6-17.2) 22.2 % (11.6-17.2) 20.8 % (11.6-17.2) Monocytes % 10 % (0-8) Eosinophils % 6 % (0-4) Nucleated Red Blood Cells 21 /100 WBC (0-0) 5 /100 WBC (0-0) Sickle Cells 1+ (NORMAL) 1+ (NORMAL) Target Cells 1+ (NORMAL) 1+ (NORMAL) Ovalocytes 1+ (NORMAL) 1+ (NORMAL) Reticulocyte Count 8.0 % (0.4-3.0) Absolute Reticulocyte Count 165.8 MIL/L (20.0-150.0) Blood Urea Nitrogen 5 MG/DL (7-18) Creatinine 0.50 MG/DL (0.60-1.30) Calcium Level 8.4 MG/DL (8.5-10.1) Lactate Dehydrogenase 305 U/L (87-241) Mean Corpuscular Volume 100.6 FL (80.0-100.0) Total Bilirubin 1.5 MG/DL (0.2-1.0) PE at Discharge GENERAL: This is a well-nourished, well-developed patient, pale CARDIOVASCULAR: Regular rate and rhythm without murmurs, gallops, or rubs. RESPIRATORY: Clear to auscultation. Breath sounds equal bilaterally. No wheezes , rales, or rhonchi. GASTROINTESTINAL: Abdomen soft, non-tender, nondistended. Normal active bowel sounds MUSCULOSKELETAL: Extremities without clubbing, cyanosis, or edema. NEURO: Alert & Oriented x4 to person, place, time, situation. Moves all ext x4 Hospital Course This patient was seen and treated for pneumonia requiring antibiotics. He did have sickle cell disease and mild pain crisis. Patient continued with medical management and was discharged home after completing his IV antibiotics. The patient also received a consultation with a local truck safety inspector at his request. He did have sepsis which resolved. Patient continued to improve and was discharged home Pt Condition on Discharge: Good Discharge Disposition: Discharge Home Discharge Time: <= 30 minutes Discharge Instructions DIET: Follow Instructions for: As Tolerated, No Restrictions Activities you can perform: Regular-No Restrictions Follow up Referrals: Oncology/Hematology - 2 Months with Lazara Duke MD, Monica Jeanette MD October 11, 2017 11:04
[2017-10-11] MEDS ORDERED: SODIUM CHLORIDE 0.9% FLUSH 10 ML FLUSH IV FLUSH PRN (12:00)
[2017-10-11 12:23] VITALS: RESP 16
== END 2017-10-11 14:19 | disposition home or self-care (01) | DRG 871 ==
LOC: PHEDDLT 19:45 → PH3B 19:46
PROVIDERS: ADMIT Hospitalist; ATTEND Hospitalist
DX: A41.9 Sepsis, unspecified organism (principal); D57.00 Hb-SS disease with crisis, unspecified; J18.9 Pneumonia, unspecified organism; R09.02 Hypoxemia; M25.50 Pain in unspecified joint; Z76.5 Malingerer [conscious simulation]; D64.9 Anemia, unspecified; Z90.49 Acquired absence of other specified parts of digestive tract
CPT/HCPCS: 71045; 71046; 71275; 80048; 80053; 81001; 82247; 83615; 85007; 85027; 85044; 85379; 85660; 86077; 86140; 86850; 86870; 86900; 86901; 86902; 86920; 86921; 86922; 93005; 96361; 96374; 96375; 96376; J0692; J0780; J1170; J1200; J1642; J1644; J2270; J2405; J3370; J7030; J7050; Q0164; Q9967